=== PATIENT | male | born 1950 | race Caucasian/White ===

== ENCOUNTER 2017-10-09 12:30 | Inpatient (IN) | payer MEDICARE, MEDICAID ==
[2017-10-09] MEDS ORDERED: cefTRIAXone 1 GM in Sodium Chloride 0.9% 50 ML IV ONE (12:55)
--- NOTE | 2017-10-09 13:22 | ED Physician Chart ---
ED Chief Complaint/HPI - Patient Information Date Seen:: 10/09/17 Time Seen:: 12:50 Chief Complaint:: Right Toe pain History of Present Illness:: onset x 3 days of right foot/toe pain, redness, and swelling; hx of DM; pt denies trauma, H/As, neck pain, C/P, SOB, cough, Abd. Pain, A/N/V/D/C, fever, chills, or urinary s/s; pt's last tetanus shot: < 5 years; UTD Allergies:: Allergies Allergy/AdvReac Type Severity Reaction Status Date / Time aspirin Allergy Verified 10/09/17 13:13 Fish Containing Products Allergy Verified 10/09/17 13:13 Historian:: Patient, EMS Review:: Nurse's Note Reviewed, Old Chart Reviewed, EMS run form Reviewed ED Review of Systems - Review of Systems General/Constitutional: No fever, No chills, No weight loss, Weakness, No diaphoresis, No edema, No loss of appetite Skin: Skin lesions, Rash, No bruising Head: No headache, No light-headedness Eyes: No loss of vision, No pain, No diplopia ENT: No earache, No nasal drainage, No sore throat, No tinnitus Neck: No neck pain, No swelling, No thyromegaly, No stiffness, No mass noted Cardio Vascular: No chest pain, No palpitations, No PND, No orthopnea, No edema Pulmonary: No SOB, No cough, No sputum, No wheezing GI: No nausea, No vomiting, No diarrhea, No pain, No melena, No hematochezia, No constipation, No hematemesis G/U: No dysuria, No frequency, No hematuria, No nacturia Musculoskeletal: No bone or joint pain, No back pain, No muscle pain Endocrine: No polyuria, No polydipsia Psychiatric: Prior psych history, No depression, Anxiety, No suicidal ideation, No homicidal ideation, No auditory hallucination, No visual hallucination Hematopoietic: No bruising, No lymphadenopathy Allergic/Immuno: No urticaria, No angioedema Neurological: No syncope, No focal symptoms, Weakness, No paresthesia, No headache, No seizure, No dizziness, No confusion, No vertigo ED Past Medical History - Past Medical History Obtainable: Yes Past Medical History: HTN, DM, Dyslipidemia, PUD/GERD, Arthritis Family History: Diabetes Melitus, HTN Social History: Non Smoker, Alcohol, No Drug Use, Single, Care Facility Surgical History: None Psychiatricy History: Other (Anxiety Disorder) Medication: Reviewed ED Physical Exam - Physical Examination General/Constitutional: Awake, Well-developed, well-nourished, Alert, No distress, GCS 15, Non-toxic appearing, Ambulatory Head: Atraumatic Eyes: Lids, conjuctiva normal, PERRL, EOMI Skin: Nl inspection, No rash, No skin lesions, No ecchymosis, Well hydrated, No lymphadenopathy Other Skin comments:: Right Foot/Toe Cellulitis; good NV functions ENMT: External ears, nose nl, TM canals nl, Nasal exam nl, Lips, teeth, gums nl , Oropharynx nl, Tonsils nl Neck: Nontender, Full ROM w/o pain, No JVD, No nuchal rigidity, No bruit, No mass, No stridor Respiratory: Nl effort/Exclusion, Clear to Auscultation, No Wheeze/Rhonchi/Rales Cardio Vascular: RRR, No murmur, gallop, rubs, NL S1 S2, Carotid/Femoral/Distal pulses equal bilaterally GI: No tenderness/rebounding/guarding, No organomegaly, No hernia, Normal BS's, Nondistended, No mass/bruits, No McBurney tenderness : No CVA tenderness Extremities: No tenderness or effusion, Full ROM, normal strength in all extremities, No edema, Normal digits & nails Neuro/Psych: Alert/oriented, DTR's symmetric, Normal sensory exam, Normal motor strength, Judgement/insight normal, Mood normal, Normal gait, No focal deficits Misc: Normal back, No paraspinal tenderness ED Labs/Radiology/EKG Results - Lab Results Comments:: Na+: 121; K+: 3.3; H/H: + Anemia - Radiology Results Comments:: NAD - EKG Interpretations EKG Time:: 13:28 Rate & Rhythm: 75; NSR Comments:: non-specific st-t changes ED Septic Shock - . Is Septic Shock (SBP<90, OR Lactate>4 mmol\L) present?: No ED Reassessment (Disposition) - Reassessment Reassessment Condition:: Improved - Diagnosis Diagnosis:: Dx: Cellulitis; Cirrhosis; Hyponatremia;p Hypokalemia; Anemia - Aftercare/Follow up Instructions Aftercare/Follow-Up Instructions:: Counseled pt regarding lab results/diagnosis & need follow up, Counseled pt & family regarding lab results/diagnosis & need follow up - Patient Disposition Discharge/Transfer:: Acute Care w/in this hosp Accepting Physician:: Dr. Glover Time Called:: [id number] Time Responded:: 14:30 Admitted to:: Telemetry Spoke to:: Dr. Glover Admitting Medical Physician:: Dr. Glover Condition at Disposition:: Stable, Improved
[2017-10-09 13:25] LABS: % BASOPHILS 1.8 % (0.0-2.0); % EOSINOPHILS 8.4 % (0.0-5.0); % LYMPHOCYTES 15.1 % (20.0-50.0); % MONOCYTES 6.6 % (2.0-10.0); % NEUTROPHILS 68.1 % (40.0-80.0); BASOPHILE ABSOLUTE 0.1 Th/cumm (0-0.2); EOSINOPHILE ABSOLUTE 0.5 Th/cmm (0.1-0.4); HEMATOCRIT 32.6 % (41.0-60); HEMOGLOBIN 11.2 gm/dL (12-16); LYMPHOCYTE ABSOLUTE 0.8 Th/cmm (1.5-3.0); MEAN CELL VOLUME 94.7 fl (80-99); MEAN CORPUSCULAR HEMOGLOBIN 32.6 pg (27.0-31.0); MEAN CORPUSCULAR HGB CONC 34.4 pg (28.0-36.0); MEAN PLATELET VOLUME 8.2 fl; MONOCYTE ABSOLUTE 0.4 Th/cmm (0.3-1.0); NEUTROPHILE ABSOLUTE 3.6 Th/cmm (1.8-8.0); PLATELET COUNT 74 Th/cmm (150-400); RED BLOOD COUNT 3.44 Mil/cmm (3.80-5.80); RED CELL DISTRIBUTION WIDTH 13.7 % (11.5-20.0); WHITE BLOOD COUNT 5.4 Th/cmm (4.8-10.8)
[2017-10-09 13:34] LABS: INR 1.15 (0.5-1.4); PROTHROMBIN TIME (TEST) 12.1 SECONDS (9.5-11.5)
--- NOTE | 2017-10-09 13:40 | Diagnostic Imaging Report ---
Portable chest x-ray History: Pain Allowing for portable technique the heart size is normal. No focal pulmonary parenchymal processes. No hilar or mediastinal abnormalities. Impression: No acute abnormalities.
[2017-10-09 13:42] LABS: ALB/GLOB RATIO 1.1 (1.0-1.8); ALBUMIN 3.7 gm/dL (4.2-5.5); ALKALINE PHOSPHATASE 103 U/L (34-104); ANION GAP 11.2 (7.0-16.0); BILIRUBIN,TOTAL 1.1 mg/dL (0.3-1.0); BUN - UREA NITROGEN 19 mg/dL (7-25); CALCIUM SERUM 8.8 mg/dL (8.6-10.3); CARBON DIOXIDE 22.1 mEq/L (21.0-31.0); CHLORIDE 91 mEq/L (98-107); CREATININE KINASE 247 U/L (30-223); GFR AFRICAN-AMERICAN > 60.0 ml/min (>90); GFR NON AFRICAN-AMERICAN > 60.0 ml/min; GLUCOSE 154 mg/dL (70-105); POTASSIUM SERUM 3.3 mEq/L (3.5-5.1); SGOT 27 U/L (13-39); SGPT/ALT 15 U/L (7-52); SODIUM SERUM 121 mEq/L (136-145)
[2017-10-09] MEDS ORDERED: Potassium Chloride 20 mEq ER Tab PO ONE ×2 (14:30→14:43)
[2017-10-09 14:33] LABS: URINE MICROSCOPIC INDICATED? YES; URINE SOURCE MIDSTREAM
[2017-10-09 14:38] LABS: URINE BILIRUBIN NEGATIVE (NEGATIVE); URINE BLOOD NEGATIVE (NEGATIVE); URINE GLUCOSE (UA) NEGATIVE (NEGATIVE); URINE KETONE NEGATIVE (NEGATIVE); URINE LEUKOCYTE ESTERASE NEGATIVE (NEGATIVE); URINE NITRATE NEGATIVE (NEGATIVE); URINE PROTEIN NEGATIVE (NEGATIVE)
[2017-10-09 14:40] LABS: URINE CLARITY CLEAR (CLEAR); URINE COLOR YELLOW
[2017-10-09 14:41] LABS: URINE BACTERIA NONE SEEN /hpf (NONE SEEN); URINE EPITHELIAL CELLS NONE SEEN /lpf (FEW); URINE RBC NONE SEEN /hpf (0-5); URINE WBC NONE SEEN /hpf (0-5)
[2017-10-09] MEDS ORDERED: VTE Chemical Prophylaxis Screen/Admission MC PRN (16:00)
[2017-10-09] MEDS: INSULIN ASPART SLIDING SCALE 100 UNITS/ML UNIT SUBQ SCH ×2 (16:58→21:45)
[2017-10-09] MEDS ORDERED: [UNRECOGNIZED DRUG - OTHER] TP SCH (20:00)
[2017-10-09] MEDS ORDERED: NEOMYCIN TP SCH (20:00)
[2017-10-09] MEDS ORDERED: Sodium Chloride 0.9% 250 ML IV ONE (21:26)
[2017-10-09] MEDS: Sodium Chloride 0.9% 1,000 ML IV SCH (23:07)
[2017-10-10 05:53] LABS: HEMOGLOBIN 10.1 gm/dL (12-16)
[2017-10-10 05:59] LABS: HEMATOCRIT 29.4 % (41.0-60); MEAN CELL VOLUME 95.6 fl (80-99); MEAN CORPUSCULAR HEMOGLOBIN 32.9 pg (27.0-31.0); MEAN CORPUSCULAR HGB CONC 34.4 pg (28.0-36.0); PLATELET COUNT 58 Th/cmm (150-400); RED BLOOD COUNT 3.08 Mil/cmm (3.80-5.80); RED CELL DISTRIBUTION WIDTH 13.6 % (11.5-20.0)
[2017-10-10 06:14] LABS: ANION GAP 10.9 (7.0-16.0); BUN - UREA NITROGEN 14 mg/dL (7-25); CALCIUM SERUM 8.6 mg/dL (8.6-10.3); CARBON DIOXIDE 22.2 mEq/L (21.0-31.0); CHLORIDE 101 mEq/L (98-107); CHOLESTEROL 133 mg/dL (<200); CREATININE - SERUM 0.9 mg/dL (0.7-1.3); GFR AFRICAN-AMERICAN > 60.0 ml/min (>90); GFR NON AFRICAN-AMERICAN > 60.0 ml/min; GLUCOSE 103 mg/dL (70-105); HDL -HIGH DENSITY LIPOPROTEIN 45 mg/dL (23-92); POTASSIUM SERUM 4.1 mEq/L (3.5-5.1); SODIUM SERUM 130 mEq/L (136-145); TRIGLYCERIDES 66 mg/dL (<150)
[2017-10-10 06:18] LABS: MANUAL DIFF REQUIRED? YES; WHITE BLOOD COUNT 3.2 Th/cmm (4.8-10.8)
[2017-10-10 07:18] LABS: BAND NEUTROPHILE 2 % (0-10); EOSINOPHIL 13 % (0-5); LYMPHOCYTE 26 % (20-50); MONOCYTE 3 % (2-10); NEUTROPHILS 56 % (40-80); PLATELET ESTIMATE DECREASED PLATELETS (NORMAL); TOTAL CELLS COUNTED 100
[2017-10-10] MEDS: Pantoprazole 40 mg EC Tab PO SCH (08:45)
[2017-10-10] MEDS ORDERED: Probiotic Screen MC PRN (08:45)
[2017-10-10] MEDS: Multivitamin Tab PO SCH (08:45)
[2017-10-10] MEDS: INSULIN ASPART SLIDING SCALE 100 UNITS/ML UNIT SUBQ SCH ×4 (08:46→21:51)
[2017-10-10] MEDS: Lactobacillus Rhamnosus GG 15 Billion CFU CAP.SPRINK PO SCH (08:53)
[2017-10-10] MEDS: Hydrocodone/APAP 5mg/325mg Tab PO PRN (08:53)
[2017-10-10] MEDS: Triple Antibiotic Ointment 28gm tube TP SCH ×2 (09:35→21:36)
--- NOTE | 2017-10-10 11:16 | Consultation ---
DATE OF CONSULTATION: 10/10/2017 HEMATOLOGY ONCOLOGY CONSULTATION REASON FOR CONSULTATION: Leukopenia and thrombocytopenia. REFERRING PHYSICIAN: Dr. Glover. HISTORY OF PRESENT ILLNESS: The patient is a 66-year-old male with history of alcoholism and liver cirrhosis. He presented with right toe pain. He had history of right middle toe amputation and he was found to have infected toes, was started on IV antibiotics. His admission white count and platelet count were low and remained low. Therefore, I was asked to evaluate. MEDICAL HISTORY: Hypertension, diabetes, dyslipidemia, cirrhosis, peptic ulcer disease, reflux. SOCIAL HISTORY: No smoking. Former drinking. SURGICAL HISTORY: Amputation of the right middle toe. MEDICATIONS: Reviewed. PHYSICAL EXAMINATION: GENERAL: On exam, the patient is awake. VITAL SIGNS: Afebrile. HEENT: Atraumatic. NECK: Supple. CHEST: Clear. ABDOMEN: Soft. No ascites. EXTREMITIES: Right middle toe amputation, the right second toe erythematous and exquisitely tender. LAB WORK: White count 3.2, hemoglobin 10.1, platelets 58. PT and PTT normal. Liver functions normal. Creatinine 0.9. ASSESSMENT: Leukopenia, thrombocytopenia and anemia, most likely chronic liver cirrhosis and hypersplenism. I will obtain ultrasound. I was also obtained B12 and folate level and iron studies for comprehensive evaluation. No need for transfusion or growth factor support at this time. Thank you Dr. Glover for the opportunity to participate in the care of this interesting case for you. JOB# [id number]
[2017-10-10] MEDS ORDERED: Lactulose 10 Gm/15 mL 30mL UDC PO SCH (14:00)
--- NOTE | 2017-10-10 20:26 | Consultation ---
DATE OF CONSULTATION: 10/10/2017 REASON FOR CONSULTATION: Cirrhosis of the liver. HISTORY OF PRESENT ILLNESS: This consult was obtained through the courtesy of Dr. Glover for this 66-year-old with history of cirrhosis of the liver related to alcoholic liver disease, presented to the hospital with foot pain and possible toe infection or cellulitis. The patient has a history of gangrene to the foot before and had surgery. The patient denies any nausea, vomiting, diarrhea, constipation, hematemesis. He has occasional abdominal pain. PAST MEDICAL HISTORY: Cirrhosis of the liver, alcohol abuse. PAST SURGICAL HISTORY: Toe amputation. SOCIAL HISTORY: Ex-alcoholic, nonsmoker, non-IV drug abuser, quit alcohol about 8 months ago. FAMILY HISTORY: Noncontributory. ALLERGIES: ASPIRIN. MEDICATIONS: The patient is on Tylenol, Hygro[place], Colace, folic acid, insulin, lactulose, Culturelle, Lopressor, vancomycin, Theragran, bacitracin, Nitrostat, Protonix, Zosyn, Diovan, thiamine. REVIEW OF SYSTEMS: As per history of present illness. PHYSICAL EXAMINATION: GENERAL: The patient is awake, oriented to self, place, and time, in no acute distress. VITAL SIGNS: Blood pressure is 118/69, heart rate 83, respiratory rate 18, temperature 98.1. HEAD AND NECK: Pupils reactive to light. Extraocular muscles intact. Sclerae are anicteric. Conjunctivae not pale. Oral cavity, no lesion. NECK: Supple. CHEST: Good air entry. LUNGS: Clear to auscultation. CARDIOVASCULAR: Regular rate and rhythm. No murmur or gallop. ABDOMEN: Soft, positive bowel sounds. Abdomen was not tender. EXTREMITIES: Lower extremities, no edema right side. Right foot, there was amputated middle foot. There are some sores over the second foot. CENTRAL NERVOUS SYSTEM: Grossly nonfocal. LABORATORY DATA: PT is 12.1 seconds, platelets are 58, H and H are 10.1 and 29.4 with a white count of 3.2, bilirubin was 1.1. Rest of liver enzymes are normal. Ammonia level is high and albumin is low at 3.7. IMPRESSION: A 66-year-old presenting with toe pain, but he also has cirrhosis. ASSESSMENT AND PLAN: 1. Cirrhosis of the liver. This is due to alcoholic liver disease. The patient claims he has no hepatitis C. This can be followed as an outpatient. We can check it and monitor him. Meanwhile, continue his vitamin supplement. 2. Thrombocytopenia. This is related to cirrhosis of the liver, possible ____. 3. Leukopenia, related to cirrhosis of the liver. 4. Elevated ammonia level could be hepatic encephalopathy. We will start the patient on lactulose and then further recommendations to follow. Also related to cirrhosis of liver. We will check ultrasound for further evaluation. We will check alpha fetoprotein and then further recommendations would follow as needed. Thank you, Dr. Glover for allowing me to participate in the care of the patient. If you have any further questions, please let me know. JOB# [id number]
[2017-10-10] MEDS: Lactulose 10 Gm/15 mL 30mL UDC PO SCH (21:47)
--- NOTE | 2017-10-10 23:31 | Consultation ---
Consult Note - Consult Note Service Date: 10/10/17 Referring Physician: Arabella Glover Consult Note: PHYSICIAN Consultation Note: Date of Admission: 10/09/17 Purpose of Consultation: Right foot 2nd toe wound. Chief Complaint: Patient CHRISTINE STANFORD was admitted to [facility] Telemetry with CELLULITIS, ELECTROLYTE IMBALANCE. History of Present Illness:66 Year-old male with history of DM2 presented with ulcer in the right 2nd toe wound. It was associated with swelling and redness. On initial evaluation, his temperature was 97.8 degree F and WBC count was 5, 400. vancomycin and zosyn were started and ID consult was called for antibiotic management. Past Medical History: DM2, liver cirrhosis. leukopenia and thrombocytopenia. Allergies Allergy/AdvReac Type Severity Reaction Status Date / Time aspirin Allergy Verified 10/09/17 13:13 Fish Containing Products Allergy Verified 10/09/17 13:13 Vital Signs Temp 97.3 F 10/10/17 20:00 Pulse 96 10/10/17 21:38 Resp 20 10/10/17 20:00 BP 124/78 10/10/17 21:38 Pulse Ox 99 10/10/17 16:00 Intake & Output 10/10/17 10/10/17 10/11/17 06:59 18:59 06:59 Intake Total 650 1100 Balance 650 1100 Weight (lbs) 87.543 kg 87.543 kg Intake: Intake, IV Amount 650 300 Piperacillin Sodium/ 150 50 Tazobact 3.375 gm In Sodium Chloride 0.9% 50 ml @ 100 mls/hr IV Q6HR [facility] Rx#:[id number] Sodium Chloride 0.9% 250 250 ml @ Wide Open IV .Q0M ONE Rx#:[id number] Vancomycin HCl 750 mg In 250 250 Sodium Chloride 0.9% 250 ml @ 250 mls/hr IV Q12H [facility] Rx#:[id number] Oral 800 Other: # Voids 3 3 # Bowel Movements 0 Stool Characteristics Soft Weight Source Bedscale Bedscale Laboratory Results - last 24 hr 10/10/17 10/10/17 10/10/17 05:41 05:41 05:41 WBC 3.2 L D RBC 3.08 L Hgb 10.1 L Hct 29.4 L MCV 95.6 MCH 32.9 H MCHC Differential 34.4 RDW 13.6 Plt Count 58 L MPV 8.0 Band Neutrophils % 2 Neutrophils (Manual) 56 Lymphocytes 26 Monocytes 3 Eosinophils 13 H Platelet Estimate DECREASED PLATELETS Sodium 130 L Potassium 4.1 Chloride 101 Carbon Dioxide 22.2 Anion Gap 10.9 BUN 14 Creatinine 0.9 Est GFR ( Amer) > 60.0 Est GFR (Non-Af Amer) > 60.0 BUN/Creatinine Ratio 15.6 Glucose 103 POC Glucose Calcium 8.6 Ammonia 93 H Triglycerides 66 Cholesterol 133 LDL Cholesterol Direct 78 HDL Cholesterol 45 10/10/17 10/10/17 10/10/17 06:02 11:44 16:19 WBC RBC Hgb Hct MCV MCH MCHC Differential RDW Plt Count MPV Band Neutrophils % Neutrophils (Manual) Lymphocytes Monocytes Eosinophils Platelet Estimate Sodium Potassium Chloride Carbon Dioxide Anion Gap BUN Creatinine Est GFR ( Amer) Est GFR (Non-Af Amer) BUN/Creatinine Ratio Glucose POC Glucose 100 128 H 112 H Calcium Ammonia Triglycerides Cholesterol LDL Cholesterol Direct HDL Cholesterol 10/10/17 21:49 WBC RBC Hgb Hct MCV MCH MCHC Differential RDW Plt Count MPV Band Neutrophils % Neutrophils (Manual) Lymphocytes Monocytes Eosinophils Platelet Estimate Sodium Potassium Chloride Carbon Dioxide Anion Gap BUN Creatinine Est GFR ( Amer) Est GFR (Non-Af Amer) BUN/Creatinine Ratio Glucose POC Glucose 114 H Calcium Ammonia Triglycerides Cholesterol LDL Cholesterol Direct HDL Cholesterol Home Medication Medication Instructions Recorded Type Acetaminophen [Tylenol] 650 mg PO Q4HR PRN 10/09/17 History Chlorthalidone 25 mg PO TID 10/09/17 History Docusate Sodium [Colace] 100 mg PO DAILY 10/09/17 History Folic Acid [Folate*] 1 mg PO DAILY 10/09/17 History Hydrocodone/APAP 5mg/325mg [Hoagland 1 tab PO Q8H PRN 10/09/17 History 5mg/325mg] Metoprolol Tartrate 25 mg PO BID 10/09/17 History Multivitamin [Multivitamins] 1 sgl PO DAILY 10/09/17 History Neomycin/Bacitracin/Polymyxinb 1 appl TP QSHIFT 10/09/17 History [Triple Antibiotic Ointment] Nitroglycerin 0.4 mg SL Q5MIN PRN 10/09/17 History Pantoprazole Sodium 40 mg PO DAILY 10/09/17 History Thiamine [Vitamin B1] 100 mg PO DAILY 10/09/17 History Valsartan 80 mg PO BID 10/09/17 History Current Medications Generic Name Dose Route Start Last Admin Trade Name Freq PRN Reason Stop Dose Admin Acetaminophen 650 mg 10/09/17 19:01 Tylenol PO 12/08/17 19:00 Q4HR PRN MILD PAIN OR TEMP >101 Acetaminophen/Hydrocodone Bitart 1 tab 10/09/17 19:01 10/10/17 08:53 Hoagland 5mg/325mg PO 12/08/17 19:00 1 tab Q8H PRN Administration Severe Pain Chlorthalidone 25 mg 10/09/17 21:00 10/10/17 21:38 Hygroton PO 12/08/17 20:59 25 mg TID ORLY Administration Docusate Sodium 100 mg 10/10/17 09:00 10/10/17 08:45 Colace PO 12/09/17 08:59 100 mg DAILY ORLY Administration Folic Acid 1 mg 10/10/17 09:00 10/10/17 08:45 Folate PO 12/09/17 08:59 1 mg DAILY ORLY Administration Piperacillin Sod/Tazobactam 50 mls @ 100 mls/hr 10/09/17 18:00 10/10/17 17:52 Sod 3.375 gm/ Sodium Chloride IV 12/08/17 17:59 100 mls/hr Q6HR ORLY Administration Vancomycin HCl 750 mg/ Sodium 250 mls @ 250 mls/hr 10/09/17 17:00 10/10/17 17 :22 Chloride IV 12/08/17 16:59 Infused Q12H ORLY Infusion Sodium Chloride 1,000 mls @ 50 mls/hr 10/09/17 21:30 10/09/17 23:07 Nacl 0.9% IV 12/08/17 21:29 50 mls/hr .Q20H ORLY Administration Insulin Aspart 0 units 10/09/17 16:30 10/10/17 21:51 Novolog Insulin Sliding Scale SUBQ 12/08/17 16:29 Not Given ACHS ORLY Protocol Lactobacillus Rhamnosus 1 each 10/10/17 09:00 10/10/17 08:53 Culturelle 15b PO 12/09/17 08:59 1 each DAILY ORLY Administration Lactulose 30 gm 10/10/17 21:00 10/10/17 21:47 Cephulac PO 12/09/17 20:59 30 gm TID ORLY Administration Metoprolol Tartrate 25 mg 10/10/17 09:00 10/10/17 16:24 Lopressor PO 12/09/17 08:59 Not Given BID ORLY Miscellaneous 1 ea 10/09/17 16:00 Vte Chemical Prophylaxis Screen/ Admission 12/08/17 15:59 PRN PRN PROTOCOL Miscellaneous 1 10/09/17 16:11 Vancomycin Iv Per Pharmacy 12/08/17 16:10 PRN PRN PROTOCOL Miscellaneous 1 10/10/17 08:45 Probiotic Screen 12/09/17 08:44 PRN PRN PROTOCOL Multivitamins/Vitamin C 1 tab 10/10/17 09:00 10/10/17 08:45 Theragran PO 12/09/17 08:59 1 tab DAILY ORLY Administration Neomycin/Polymyxin/Bacitracin 1 appl 10/10/17 08:00 10/10/17 21:36 Triple Antibiotic Ointment TP 12/09/17 07:59 1 appl QSHIFT ORLY Administration Nitroglycerin 0.4 mg 10/09/17 19:01 Nitrostat SL 12/08/17 19:00 Q5MIN PRN Chest Pain Pantoprazole Sodium 40 mg 10/10/17 09:00 10/10/17 08:45 Protonix PO 12/09/17 08:59 40 mg DAILY ORLY Administration Thiamine HCl 100 mg 10/10/17 09:00 10/10/17 08:45 Vitamin B1 PO 12/09/17 08:59 100 mg DAILY ORLY Administration Valsartan 80 mg 10/10/17 09:00 10/10/17 16:24 Diovan PO 12/09/17 08:59 Not Given BID ORLY Review of Systems: A 12 point ROS was reviewed with the pertinent positive and negatives noted in the HPI. Social History Smoking Status Never smoker Drug Use No Alcohol Use Yes Family Medical History Family Medical History Start: 10/09/17 14: 57 Freq: ONCE Status: Active Document 10/09/17 15:42 JESSIE (Rec: 10/09/17 15:42 JESSIE [id number]) Family Medical History Mother History Unknown Yes Physical Exam: General: WN WD. HEENT: Head: normocephalic, atraumatic. Oral cavity: moist, pink tongue. Eyes: no pallor, no icterus, Pupil PERRLA. Neck: Supple, no NVD, no carotid bruit. Cardio: S1 and S2 WNL. No murmur, Respiratory: Vesicular breath sounds. Abdominal: soft NT ND BS + Genital/Urinary: Extremities: 2nd toe of the left 2nd toe ulcer with minimal redness. Neurological: AAox3 Assessment: 1, Right 2nd toe ulcers and cellulitis, 2, Neutropenia 3. Thrombocytopenia. 4, Cirrhosis of liver, 5. DM2. Plan: CPM . continue vanco IV and dc Zosyn. wound care. Signed, Quoc Hernandez M.D. [id number]
[2017-10-11] MEDS: Sodium Chloride 0.9% 1,000 ML IV SCH (03:42)
[2017-10-11] MEDS: INSULIN ASPART SLIDING SCALE 100 UNITS/ML UNIT SUBQ SCH ×4 (07:11→20:52)
--- NOTE | 2017-10-11 07:52 | Diagnostic Imaging Report ---
Ultrasound abdomen HISTORY: Splenomegaly COMPARISON: None Technique: Sonography of the abdomen was performed in multiple planes. FINDINGS: The exam is limited due to body habitus and bowel gas. The liver demonstrates normal echogenicity. There is poor visualization of the liver margins limiting assessment for focal lesions. No obvious focal lesions identified. The liver measures 16.7 cm. There is suboptimal evaluation of the gallbladder. No obvious gallstones identified. The gallbladder is suboptimally distended. The gallbladder wall measures 3 mm. No pericholecystic fluid. The common bile duct and pancreas were not well-visualized. The right kidney measures 11.8 x 6.9 cm. No evidence of focal lesions or hydronephrosis. The left kidney measures 13.4 x 6.1 cm No evidence of focal lesions or hydronephrosis. The spleen measures 19 x 6.3 cm. IMPRESSION: Splenomegaly with spleen measuring 19 x 6.3 cm. Please correlate with clinical findings. Liver at the upper limits of normal in size. Suboptimal distended gallbladder limiting its evaluation. No obvious gallstones identified. Borderline prominent gallbladder wall is noted, nonspecific and may be due to suboptimal distention.
[2017-10-11] MEDS: Lactulose 10 Gm/15 mL 30mL UDC PO SCH ×3 (09:28→20:50)
[2017-10-11] MEDS: Lactobacillus Rhamnosus GG 15 Billion CFU CAP.SPRINK PO SCH (09:28)
[2017-10-11] MEDS: Multivitamin Tab PO SCH (09:28)
[2017-10-11] MEDS: Pantoprazole 40 mg EC Tab PO SCH (09:28)
[2017-10-11] MEDS: Hydrocodone/APAP 5mg/325mg Tab PO PRN ×2 (09:39→17:52)
[2017-10-11] MEDS: Triple Antibiotic Ointment 28gm tube TP SCH ×2 (09:40→20:50)
--- NOTE | 2017-10-11 10:19 | General Progress Note ---
Subjective - Review of Systems Service Date: 10/11/17 Objective - Results Result Diagrams: 10/10/17 05:41 10/10/17 05:41 Recent Labs: Laboratory Last Values WBC 3.2 Th/cmm (4.8-10.8) L D 10/10/17 05:41 RBC 3.08 Mil/cmm (3.80-5.80) L 10/10/17 05:41 Hgb 10.1 gm/dL (12-16) L 10/10/17 05:41 Hct 29.4 % (41.0-60) L 10/10/17 05:41 MCV 95.6 fl (80-99) 10/10/17 05:41 MCH 32.9 pg (27.0-31.0) H 10/10/17 05:41 MCHC Differential 34.4 pg (28.0-36.0) 10/10/17 05:41 RDW 13.6 % (11.5-20.0) 10/10/17 05:41 Plt Count 58 Th/cmm (150-400) L 10/10/17 05:41 MPV 8.0 fl 10/10/17 05:41 Neutrophils % 68.1 % (40.0-80.0) 10/09/17 13:10 Band Neutrophils % 2 % (0-10) 10/10/17 05:41 Lymphocytes % 15.1 % (20.0-50.0) L 10/09/17 13:10 Monocytes % 6.6 % (2.0-10.0) 10/09/17 13:10 Eosinophils % 8.4 % (0.0-5.0) H 10/09/17 13:10 Basophils % 1.8 % (0.0-2.0) 10/09/17 13:10 Neutrophils (Manual) 56 % (40-80) 10/10/17 05:41 Lymphocytes 26 % (20-50) 10/10/17 05:41 Monocytes 3 % (2-10) 10/10/17 05:41 Eosinophils 13 % (0-5) H 10/10/17 05:41 Platelet Estimate DECREASED PLATELETS (NORMAL) 10/10/17 05:41 PT 12.1 SECONDS (9.5-11.5) H 10/09/17 13:10 INR 1.15 (0.5-1.4) 10/09/17 13:10 PTT (Actin FS) 26.2 SECONDS (26.0-38.0) 10/09/17 13:10 Sodium 130 mEq/L (136-145) L 10/10/17 05:41 Potassium 4.1 mEq/L (3.5-5.1) 10/10/17 05:41 Chloride 101 mEq/L (98-107) 10/10/17 05:41 Carbon Dioxide 22.2 mEq/L (21.0-31.0) 10/10/17 05:41 Anion Gap 10.9 (7.0-16.0) 10/10/17 05:41 BUN 14 mg/dL (7-25) 10/10/17 05:41 Creatinine 0.9 mg/dL (0.7-1.3) 10/10/17 05:41 Est GFR ( Amer) > 60.0 ml/min (>90) 10/10/17 05:41 Est GFR (Non-Af Amer) > 60.0 ml/min 10/10/17 05:41 BUN/Creatinine Ratio 15.6 10/10/17 05:41 Glucose 103 mg/dL (70-105) 10/10/17 05:41 POC Glucose 114 MG/DL (70 - 105) H 10/10/17 21:49 Whole Bld Lactic Acid 1.17 mmol/L (0.60-1.99) 10/09/17 13:10 Calcium 8.6 mg/dL (8.6-10.3) 10/10/17 05:41 Total Bilirubin 1.1 mg/dL (0.3-1.0) H 10/09/17 13:10 AST 27 U/L (13-39) 10/09/17 13:10 ALT 15 U/L (7-52) 10/09/17 13:10 Alkaline Phosphatase 103 U/L (34-104) 10/09/17 13:10 Ammonia 93 umol/L (16-53) H 10/10/17 05:41 Creatine Kinase 247 U/L (30-223) H 10/09/17 13:10 CK-MB (CK-2) 2.4 ng/mL (0.6-6.3) 10/09/17 13:10 Troponin I < 0.01 ng/mL (0.01-0.05) L 10/09/17 13:10 Total Protein 7.0 gm/dL (6.0-8.3) 10/09/17 13:10 Albumin 3.7 gm/dL (4.2-5.5) L 10/09/17 13:10 Globulin 3.3 gm/dL 10/09/17 13:10 Albumin/Globulin Ratio 1.1 (1.0-1.8) 10/09/17 13:10 Triglycerides 66 mg/dL (<150) 10/10/17 05:41 Cholesterol 133 mg/dL (<200) 10/10/17 05:41 LDL Cholesterol Direct 78 mg/dL (75-193) 10/10/17 05:41 HDL Cholesterol 45 mg/dL (23-92) 10/10/17 05:41 Urine Source MIDSTREAM 10/09/17 13:40 Urine Color YELLOW 10/09/17 13:40 Urine Clarity CLEAR (CLEAR) 10/09/17 13:40 Urine pH 6.0 (4.6 - 8.0) 10/09/17 13:40 Ur Specific [place] <= 1.005 (1.005-1.030) 10/09/17 13:40 Urine Protein NEGATIVE mg/dL (NEGATIVE) 10/09/17 13:40 Urine Glucose (UA) NEGATIVE mg/dL (NEGATIVE) 10/09/17 13:40 Urine Ketones NEGATIVE mg/dL (NEGATIVE) 10/09/17 13:40 Urine Blood NEGATIVE (NEGATIVE) 10/09/17 13:40 Urine Nitrate NEGATIVE (NEGATIVE) 10/09/17 13:40 Urine Bilirubin NEGATIVE (NEGATIVE) 10/09/17 13:40 Urine Urobilinogen 1.0 E.U./dL (0.2 - 1.0) 10/09/17 13:40 Ur Leukocyte Esterase NEGATIVE (NEGATIVE) 10/09/17 13:40 Urine RBC NONE SEEN /hpf (0-5) 10/09/17 13:40 Urine WBC NONE SEEN /hpf (0-5) 10/09/17 13:40 Ur Epithelial Cells NONE SEEN /lpf (FEW) 10/09/17 13:40 Urine Bacteria NONE SEEN /hpf (NONE SEEN) 10/09/17 13:40 Vancomycin Trough 6.0 ug/mL (5-10) 10/11/17 04:10 - Physical Exam Vitals and I&O: Vital Signs Temp 97.4 F 10/11/17 08:00 Pulse 88 10/11/17 09:30 Resp 20 10/11/17 08:00 BP 110/61 10/11/17 09:30 Pulse Ox 98 10/11/17 08:00 Intake & Output 10/10/17 10/11/17 10/11/17 18:59 06:59 18:59 Intake Total 1150 1600 Balance 1150 1600 Weight (lbs) 87.543 kg 85.91 kg Intake: Intake, IV Amount 350 1000 Piperacillin Sodium/ 100 Tazobact 3.375 gm In Sodium Chloride 0.9% 50 ml @ 100 mls/hr IV Q6HR [facility], [facility] Rx#:[id number] Sodium Chloride 0.9% 1, 1000 000 ml @ 50 mls/hr IV . Q20H [facility], [facility] Rx#:[id number] Vancomycin HCl 750 mg In 250 Sodium Chloride 0.9% 250 ml @ 250 mls/hr IV Q12H [facility], [facility] Rx#:[id number] Oral 800 300 Other 300 Other: # Voids 3 3 # Bowel Movements 0 1 Weight Source Bedscale Bedscale Active Medications: Current Medications Acetaminophen (Tylenol) 650 mg PO Q4HR PRN PRN Reason: MILD PAIN OR TEMP >101 Stop: 12/08/17 19:00 Acetaminophen/Hydrocodone Bitart ([place] 5mg/325mg) 1 tab PO Q8H PRN PRN Reason: Severe Pain Stop: 12/08/17 19:00 Last Admin: 10/11/17 09:39 Dose: 1 tab Chlorthalidone (Hygroton) 25 mg PO TID [facility] Stop: 12/08/17 20:59 Last Admin: 10/11/17 09:30 Dose: 25 mg Docusate Sodium (Colace) 100 mg PO DAILY [facility] Stop: 12/09/17 08:59 Last Admin: 10/11/17 09:28 Dose: 100 mg Folic Acid (Folate) 1 mg PO DAILY [facility] Stop: 12/09/17 08:59 Last Admin: 10/11/17 09:28 Dose: 1 mg Vancomycin HCl 750 mg/ Sodium (Chloride) 250 mls @ 250 mls/hr IV Q12H [facility] Stop: 12/08/17 16:59 Last Admin: 10/11/17 04:42 Dose: 250 mls/hr Sodium Chloride (Nacl 0.9%) 1,000 mls @ 50 mls/hr IV .Q20H ORLY Stop: 12/08/17 21:29 Last Admin: 10/11/17 03:42 Dose: 50 mls/hr Insulin Aspart (Novolog Insulin Sliding Scale) 0 units SUBQ ACHS ORLY PRN Reason: Protocol Stop: 12/08/17 16:29 Last Admin: 10/11/17 07:11 Dose: Not Given Lactobacillus Rhamnosus (Culturelle 15b) 1 each PO DAILY ORLY Stop: 12/09/17 08:59 Last Admin: 10/11/17 09:28 Dose: 1 each Lactulose (Cephulac) 30 gm PO TID ORLY Stop: 12/09/17 20:59 Last Admin: 10/11/17 09:28 Dose: 30 gm Metoprolol Tartrate (Lopressor) 25 mg PO BID ORLY Stop: 12/09/17 08:59 Last Admin: 10/11/17 09:30 Dose: 25 mg Miscellaneous (Vte Chemical Prophylaxis Screen/ Admission) 1 ea MC PRN PRN PRN Reason: PROTOCOL Stop: 12/08/17 15:59 Miscellaneous (Vancomycin Iv Per Pharmacy) 1 ea MC PRN PRN PRN Reason: PROTOCOL Stop: 12/08/17 16:10 Miscellaneous (Probiotic Screen) 1 ea MC PRN PRN PRN Reason: PROTOCOL Stop: 12/09/17 08:44 Multivitamins/Vitamin C (Theragran) 1 tab PO DAILY ORLY Stop: 12/09/17 08:59 Last Admin: 10/11/17 09:28 Dose: 1 tab Neomycin/Polymyxin/Bacitracin (Triple Antibiotic Ointment) 1 appl TP QSHIFT [facility] Stop: 12/09/17 07:59 Last Admin: 10/11/17 09:40 Dose: 1 appl Nitroglycerin (Nitrostat) 0.4 mg SL Q5MIN PRN PRN Reason: Chest Pain Stop: 12/08/17 19:00 Pantoprazole Sodium (Protonix) 40 mg PO DAILY ORLY Stop: 12/09/17 08:59 Last Admin: 10/11/17 09:28 Dose: 40 mg Thiamine HCl (Vitamin B1) 100 mg PO DAILY ORLY Stop: 12/09/17 08:59 Last Admin: 10/11/17 09:28 Dose: 100 mg Valsartan (Diovan) 80 mg PO BID [facility] Stop: 12/09/17 08:59 Last Admin: 10/11/17 09:30 Dose: 80 mg General: Alert HEENT: Atraumatic Neck: Supple Cardiovascular: Regular rate Abdomen: Soft, Splenomegaly Extremities: Other (right middle toe amputated, right second toe erythematous) Assessment/Plan - Problem List Patient Problems: All Active Problems RIGHT #2 TOE WOUND (Acute) - Assessment Assessment: * Splenomegaly * Hypersplenesim * Right second toe infection Monitor cbc; No intervention needed for cytopenia Nutritional Asmnt/Malnutr-PDOC - Dietary Evaluation Malnutrition Findings (Please click <Entered> for more info): Nutritional Asmnt/Malnutrition Start: 10/10/17 15: 41 Text: Status: Complete Freq: Document 10/10/17 15:41 OCHOA (Rec: 10/10/17 15:49 OCHOA [email or web address]) Nutritional Asmnt/Malnutrition Patient General Information Nutritional Screening High Risk Consult Diagnosis cellulitis, electrolyte imbalance Pertinent Medical Hx/Surgical Hx HTN, DM, hyslipidemia, PUD/ GERD, arthritis, anxiety disorder, right middle toe amputation Subjective Information Consult received for wound to right second toe. Pt seen sleeping at time of visit, 1:1 sitter. Per SYSTEMS ADMINISTRATION ANALYST, Pt ate well, 100% of dinner last night and 100% of breakfast this morning, NPO in the afternoon. Pt reported fish allergy. Current Diet Order/ Nutrition Support low sodium Pertinent Medications colace, folate, novolog, culturelle, lactulose, theragran, protonix, piperacillin, nacl 0.9%, vit B1, vancomycin Pertinent Labs 10/10 na 130, glucose 103, POC 100-128 Nutritional Hx/Data Height 1.78 m Height (Calculated Centimeters) 177.8 Current Weight (lbs) 87.543 kg Weight (Calculated Kilograms) 87.5 Weight (Calculated Grams) 80039.3 [place] Body Weight 166 Body Mass Index (BMI) 27.6 Weight Status Overweight GI Symptoms GI Symptoms None Last BM no records Difficult in: None Food Allergies Yes: fish Skin Integrity/Comment: amputation pressure ulcer to right 2nd toe Current %PO Good (75-100%) Estimated Nutritional Goals BEE in Kcals: Adj wt of IBW Calories/Kcals/Kg 25-30. Kcals Calculated 2607-6638 Protein: Adj wt of IBW Protein g/k-1.2 Protein Calculated 78-94 Fluid: ml 1974-237ml (1ml/kcal) Nutritional Problem 1. Problem Problem increased nutrition needs ( calorie and protein) Etiology increased metabolic demand for wound healing Signs/Symptoms: pressure ulcer to right 2nd toe Malnutrition Alert Protein-Calorie Malnutrition N/A Is there a minimum of two criteria No selected? Query Text:Check all the applicable criteria. A minimum of two criteria are recommended for diagnosis of either severe or non-severe malnutrition. Intervention/Recommendation Comments 1. Continue with current diet as ordered. Consider adding oral nutrition supplement Arginaid 1pkg daily to help with wound healing. 2. Monitor PO intake, wt, labs and skin integrity 3. F/U as moderate risk in 3-5 days, 10/13-10/15. Expected Outcomes/Goals Expected Outcomes/Goals 1. PO intake to meet at least 75% of nutritional needs. 2. Wt stability, skin to remain intact, labs to approach WNL.
--- NOTE | 2017-10-11 14:38 | Internal Medicine Prog Note ---
Internal Medicine Subjective - Subjective Service Date: 10/11/17 ([id number] [facility] ) Internal Medicine Objective - Results Result Diagrams: 10/10/17 05:41 10/10/17 05:41 Recent Labs: Laboratory Last Values WBC 3.2 Th/cmm (4.8-10.8) L D 10/10/17 05:41 RBC 3.08 Mil/cmm (3.80-5.80) L 10/10/17 05:41 Hgb 10.1 gm/dL (12-16) L 10/10/17 05:41 Hct 29.4 % (41.0-60) L 10/10/17 05:41 MCV 95.6 fl (80-99) 10/10/17 05:41 MCH 32.9 pg (27.0-31.0) H 10/10/17 05:41 MCHC Differential 34.4 pg (28.0-36.0) 10/10/17 05:41 RDW 13.6 % (11.5-20.0) 10/10/17 05:41 Plt Count 58 Th/cmm (150-400) L 10/10/17 05:41 MPV 8.0 fl 10/10/17 05:41 Neutrophils % 68.1 % (40.0-80.0) 10/09/17 13:10 Band Neutrophils % 2 % (0-10) 10/10/17 05:41 Lymphocytes % 15.1 % (20.0-50.0) L 10/09/17 13:10 Monocytes % 6.6 % (2.0-10.0) 10/09/17 13:10 Eosinophils % 8.4 % (0.0-5.0) H 10/09/17 13:10 Basophils % 1.8 % (0.0-2.0) 10/09/17 13:10 Neutrophils (Manual) 56 % (40-80) 10/10/17 05:41 Lymphocytes 26 % (20-50) 10/10/17 05:41 Monocytes 3 % (2-10) 10/10/17 05:41 Eosinophils 13 % (0-5) H 10/10/17 05:41 Platelet Estimate DECREASED PLATELETS (NORMAL) 10/10/17 05:41 PT 12.1 SECONDS (9.5-11.5) H 10/09/17 13:10 INR 1.15 (0.5-1.4) 10/09/17 13:10 PTT (Actin FS) 26.2 SECONDS (26.0-38.0) 10/09/17 13:10 Sodium 130 mEq/L (136-145) L 10/10/17 05:41 Potassium 4.1 mEq/L (3.5-5.1) 10/10/17 05:41 Chloride 101 mEq/L (98-107) 10/10/17 05:41 Carbon Dioxide 22.2 mEq/L (21.0-31.0) 10/10/17 05:41 Anion Gap 10.9 (7.0-16.0) 10/10/17 05:41 BUN 14 mg/dL (7-25) 10/10/17 05:41 Creatinine 0.9 mg/dL (0.7-1.3) 10/10/17 05:41 Est GFR ( Amer) > 60.0 ml/min (>90) 10/10/17 05:41 Est GFR (Non-Af Amer) > 60.0 ml/min 10/10/17 05:41 BUN/Creatinine Ratio 15.6 10/10/17 05:41 Glucose 103 mg/dL (70-105) 10/10/17 05:41 POC Glucose 166 MG/DL (70 - 105) H 10/11/17 12:08 Whole Bld Lactic Acid 1.17 mmol/L (0.60-1.99) 10/09/17 13:10 Calcium 8.6 mg/dL (8.6-10.3) 10/10/17 05:41 Total Bilirubin 1.1 mg/dL (0.3-1.0) H 10/09/17 13:10 AST 27 U/L (13-39) 10/09/17 13:10 ALT 15 U/L (7-52) 10/09/17 13:10 Alkaline Phosphatase 103 U/L (34-104) 10/09/17 13:10 Ammonia 93 umol/L (16-53) H 10/10/17 05:41 Creatine Kinase 247 U/L (30-223) H 10/09/17 13:10 CK-MB (CK-2) 2.4 ng/mL (0.6-6.3) 10/09/17 13:10 Troponin I < 0.01 ng/mL (0.01-0.05) L 10/09/17 13:10 Total Protein 7.0 gm/dL (6.0-8.3) 10/09/17 13:10 Albumin 3.7 gm/dL (4.2-5.5) L 10/09/17 13:10 Globulin 3.3 gm/dL 10/09/17 13:10 Albumin/Globulin Ratio 1.1 (1.0-1.8) 10/09/17 13:10 Triglycerides 66 mg/dL (<150) 10/10/17 05:41 Cholesterol 133 mg/dL (<200) 10/10/17 05:41 LDL Cholesterol Direct 78 mg/dL (75-193) 10/10/17 05:41 HDL Cholesterol 45 mg/dL (23-92) 10/10/17 05:41 Urine Source MIDSTREAM 10/09/17 13:40 Urine Color YELLOW 10/09/17 13:40 Urine Clarity CLEAR (CLEAR) 10/09/17 13:40 Urine pH 6.0 (4.6 - 8.0) 10/09/17 13:40 Ur Specific [place] <= 1.005 (1.005-1.030) 10/09/17 13:40 Urine Protein NEGATIVE mg/dL (NEGATIVE) 10/09/17 13:40 Urine Glucose (UA) NEGATIVE mg/dL (NEGATIVE) 10/09/17 13:40 Urine Ketones NEGATIVE mg/dL (NEGATIVE) 10/09/17 13:40 Urine Blood NEGATIVE (NEGATIVE) 10/09/17 13:40 Urine Nitrate NEGATIVE (NEGATIVE) 10/09/17 13:40 Urine Bilirubin NEGATIVE (NEGATIVE) 10/09/17 13:40 Urine Urobilinogen 1.0 E.U./dL (0.2 - 1.0) 10/09/17 13:40 Ur Leukocyte Esterase NEGATIVE (NEGATIVE) 10/09/17 13:40 Urine RBC NONE SEEN /hpf (0-5) 10/09/17 13:40 Urine WBC NONE SEEN /hpf (0-5) 10/09/17 13:40 Ur Epithelial Cells NONE SEEN /lpf (FEW) 10/09/17 13:40 Urine Bacteria NONE SEEN /hpf (NONE SEEN) 10/09/17 13:40 Vancomycin Trough 6.0 ug/mL (5-10) 10/11/17 04:10 - Physical Exam Vitals and I&O: Vital Signs Temp 97.4 F 10/11/17 08:00 Pulse 80 10/11/17 13:56 Resp 18 10/11/17 12:33 BP 120/70 10/11/17 13:56 Pulse Ox 98 10/11/17 08:00 Intake & Output 10/10/17 10/11/17 10/11/17 18:59 06:59 18:59 Intake Total 1150 1600 720 Balance 1150 1600 720 Weight (lbs) 193 lb 189 lb 6.4 oz 189 lb 6.4 oz Intake: Intake, IV Amount 350 1000 Piperacillin Sodium/ 100 Tazobact 3.375 gm In Sodium Chloride 0.9% 50 ml @ 100 mls/hr IV Q6HR [facility] Rx#:[id number] Sodium Chloride 0.9% 1, 1000 000 ml @ 50 mls/hr IV . Q20H [facility] Rx#:[id number] Vancomycin HCl 750 mg In 250 Sodium Chloride 0.9% 250 ml @ 250 mls/hr IV Q12H [facility] Rx#:[id number] Oral 800 300 720 Other 300 Other: # Voids 3 3 # Bowel Movements 0 1 2 Stool Characteristics Soft Weight Source Bedscale Bedscale Bedscale Active Medications: Current Medications Acetaminophen (Tylenol) 650 mg PO Q4HR PRN PRN Reason: MILD PAIN OR TEMP >101 Stop: 12/08/17 19:00 Acetaminophen/Hydrocodone Bitart ([place] 5mg/325mg) 1 tab PO Q8H PRN PRN Reason: Severe Pain Stop: 12/08/17 19:00 Last Admin: 10/11/17 09:39 Dose: 1 tab Chlorthalidone (Hygroton) 25 mg PO TID [facility] Stop: 12/08/17 20:59 Last Admin: 10/11/17 13:56 Dose: 25 mg Docusate Sodium (Colace) 100 mg PO DAILY [facility] Stop: 12/09/17 08:59 Last Admin: 10/11/17 09:28 Dose: 100 mg Folic Acid (Folate) 1 mg PO DAILY [facility] Stop: 12/09/17 08:59 Last Admin: 10/11/17 09:28 Dose: 1 mg Vancomycin HCl 750 mg/ Sodium (Chloride) 250 mls @ 250 mls/hr IV Q12H [facility] Stop: 12/08/17 16:59 Last Admin: 10/11/17 04:42 Dose: 250 mls/hr Sodium Chloride (Nacl 0.9%) 1,000 mls @ 50 mls/hr IV .Q20H [facility] Stop: 12/08/17 21:29 Last Admin: 10/11/17 03:42 Dose: 50 mls/hr Insulin Aspart (Novolog Insulin Sliding Scale) 0 units SUBQ ACHS ORLY PRN Reason: Protocol Stop: 12/08/17 16:29 Last Admin: 10/11/17 13:57 Dose: Not Given Lactobacillus Rhamnosus (Culturelle 15b) 1 each PO DAILY [facility] Stop: 12/09/17 08:59 Last Admin: 10/11/17 09:28 Dose: 1 each Lactulose (Cephulac) 30 gm PO TID [facility] Stop: 12/09/17 20:59 Last Admin: 10/11/17 13:55 Dose: 30 gm Metoprolol Tartrate (Lopressor) 25 mg PO BID [facility] Stop: 12/09/17 08:59 Last Admin: 10/11/17 09:30 Dose: 25 mg Miscellaneous (Vte Chemical Prophylaxis Screen/ Admission) 1 ea PRN PRN PRN Reason: PROTOCOL Stop: 12/08/17 15:59 Miscellaneous (Vancomycin Iv Per Pharmacy) 1 ea PRN PRN PRN Reason: PROTOCOL Stop: 12/08/17 16:10 Miscellaneous (Probiotic Screen) 1 ea PRN PRN PRN Reason: PROTOCOL Stop: 12/09/17 08:44 Multivitamins/Vitamin C (Theragran) 1 tab PO DAILY [facility] Stop: 12/09/17 08:59 Last Admin: 10/11/17 09:28 Dose: 1 tab Neomycin/Polymyxin/Bacitracin (Triple Antibiotic Ointment) 1 appl TP QSHIFT [facility] Stop: 12/09/17 07:59 Last Admin: 10/11/17 09:40 Dose: 1 appl Nitroglycerin (Nitrostat) 0.4 mg SL Q5MIN PRN PRN Reason: Chest Pain Stop: 12/08/17 19:00 Pantoprazole Sodium (Protonix) 40 mg PO DAILY [facility] Stop: 12/09/17 08:59 Last Admin: 10/11/17 09:28 Dose: 40 mg Thiamine HCl (Vitamin B1) 100 mg PO DAILY [facility] Stop: 12/09/17 08:59 Last Admin: 10/11/17 09:28 Dose: 100 mg Valsartan (Diovan) 80 mg PO BID [facility] Stop: 12/09/17 08:59 Last Admin: 10/11/17 09:30 Dose: 80 mg Nutritional Asmnt/Malnutr-PDOC - Dietary Evaluation Malnutrition Findings (Please click <Entered> for more info): Nutritional Asmnt/Malnutrition Start: 10/10/17 15: 41 Text: Status: Complete Freq: Document 10/10/17 15:41 OCHOA (Rec: 10/10/17 15:49 OCHOA [email or web address]) Nutritional Asmnt/Malnutrition Patient General Information Nutritional Screening High Risk Consult Diagnosis cellulitis, electrolyte imbalance Pertinent Medical Hx/Surgical Hx HTN, DM, hyslipidemia, PUD/ GERD, arthritis, anxiety disorder, right middle toe amputation Subjective Information Consult received for wound to right second toe. Pt seen sleeping at time of visit, 1:1 sitter. Per ORACLE APPLICATION CONSULTANT, Pt ate well, 100% of dinner last night and 100% of breakfast this morning, NPO in the afternoon. Pt reported fish allergy. Current Diet Order/ Nutrition Support low sodium Pertinent Medications colace, folate, novolog, culturelle, lactulose, theragran, protonix, piperacillin, nacl 0.9%, vit B1, vancomycin Pertinent Labs 4/4 na 130, glucose 103, POC 100-128 Nutritional Hx/Data Height 5 ft 10 in Height (Calculated Centimeters) 177.8 Current Weight (lbs) 193 lb Weight (Calculated Kilograms) 87.5 Weight (Calculated Grams) 18921.3 [place] Body Weight 166 Body Mass Index (BMI) 27.6 Weight Status Overweight GI Symptoms GI Symptoms None Last BM no records Difficult in: None Food Allergies Yes: fish Skin Integrity/Comment: amputation pressure ulcer to right 2nd toe Current %PO Good (75-100%) Estimated Nutritional Goals BEE in Kcals: Adj wt of IBW Calories/Kcals/Kg 25-30. Kcals Calculated 5826-8353 Protein: Adj wt of IBW Protein g/k-1.2 Protein Calculated 78-94 Fluid: ml 1974-2369ml (1ml/kcal) Nutritional Problem 1. Problem Problem increased nutrition needs ( calorie and protein) Etiology increased metabolic demand for wound healing Signs/Symptoms: pressure ulcer to right 2nd toe Malnutrition Alert Protein-Calorie Malnutrition N/A Is there a minimum of two criteria No selected? Query Text:Check all the applicable criteria. A minimum of two criteria are recommended for diagnosis of either severe or non-severe malnutrition. Intervention/Recommendation Comments 1. Continue with current diet as ordered. Consider adding oral nutrition supplement Arginaid 1pkg daily to help with wound healing. 2. Monitor PO intake, wt, labs and skin integrity 3. F/U as moderate risk in 3-5 days, 10/13-10/15. Expected Outcomes/Goals Expected Outcomes/Goals 1. PO intake to meet at least 75% of nutritional needs. 2. Wt stability, skin to remain intact, labs to approach WNL.
--- NOTE | 2017-10-11 15:50 | History & Physical ---
ADMIT DATE: 10/11/2017 CHIEF COMPLAINT: Right toe pain. HISTORY OF PRESENT ILLNESS: This is a 66-year-old male who is a [facility] resident who has a 3-day history of right toe pain associated with redness and swelling. The patient denies any fevers at the [facility]. For further management, the patient is now admitted. PAST MEDICAL HISTORY: Hypertension, diabetes, dyslipidemia, GERD, arthritis. FAMILY HISTORY: Noncontributory. SOCIAL HISTORY: The patient is a [facility] resident. SURGICAL HISTORY: None per patient. ALLERGIES: ASPIRIN, FISH CONTAINING PRODUCTS. REVIEW OF SYSTEMS: GENERAL: Denies any fevers or chills. CARDIOVASCULAR: Denies chest pain. RESPIRATORY: Denies shortness of breath. GASTROINTESTINAL: Denies nausea, vomiting, abdominal pain. GENITOURINARY: The patient increased frequency or dysuria. NEUROLOGIC: No headaches, seizures or syncope. All other systems are reviewed and are negative. PHYSICAL EXAMINATION: GENERAL: The patient is well developed, well nourished, no acute distress. VITAL SIGNS: Temperature 97.4, heart rate 88, blood pressure 110/61, respirations 20, O2 98%. HEENT: Head normocephalic, atraumatic. NECK: Supple. No mass. LUNGS: Clear bilaterally. HEART: Regular rate and rhythm. ABDOMEN: Soft, nontender. LABORATORY DATA: WBC 3.2, H and H 10.1 and 29.4, platelet of 58. Sodium 130, potassium 4.1, chloride of 101, BUN 14, creatinine 0.9. ASSESSMENT: Cellulitis, electrolyte imbalance, hypokalemia, diabetes. PLAN: We will get Infectious Disease on the case, wound care. We will have one-to-one sitter for safety, empiric IV antibiotics. We will continue to follow this patient. JOB# [id number]
--- NOTE | 2017-10-11 23:51 | Infectious Disease Prog Note ---
Infectious Disease Subjective - Review of Systems Service Date: 10/11/17 Subjective: doing well. Infectious Disease Objective - Results Result Diagrams: 10/12/17 05:40 10/12/17 05:40 Recent Labs: Laboratory Last Values WBC 3.2 Th/cmm (4.8-10.8) L D 10/10/17 05:41 RBC 3.08 Mil/cmm (3.80-5.80) L 10/10/17 05:41 Hgb 10.1 gm/dL (12-16) L 10/10/17 05:41 Hct 29.4 % (41.0-60) L 10/10/17 05:41 MCV 95.6 fl (80-99) 10/10/17 05:41 MCH 32.9 pg (27.0-31.0) H 10/10/17 05:41 MCHC Differential 34.4 pg (28.0-36.0) 10/10/17 05:41 RDW 13.6 % (11.5-20.0) 10/10/17 05:41 Plt Count 58 Th/cmm (150-400) L 10/10/17 05:41 MPV 8.0 fl 10/10/17 05:41 Neutrophils % 68.1 % (40.0-80.0) 10/09/17 13:10 Band Neutrophils % 2 % (0-10) 10/10/17 05:41 Lymphocytes % 15.1 % (20.0-50.0) L 10/09/17 13:10 Monocytes % 6.6 % (2.0-10.0) 10/09/17 13:10 Eosinophils % 8.4 % (0.0-5.0) H 10/09/17 13:10 Basophils % 1.8 % (0.0-2.0) 10/09/17 13:10 Neutrophils (Manual) 56 % (40-80) 10/10/17 05:41 Lymphocytes 26 % (20-50) 10/10/17 05:41 Monocytes 3 % (2-10) 10/10/17 05:41 Eosinophils 13 % (0-5) H 10/10/17 05:41 Platelet Estimate DECREASED PLATELETS (NORMAL) 10/10/17 05:41 PT 12.1 SECONDS (9.5-11.5) H 10/09/17 13:10 INR 1.15 (0.5-1.4) 10/09/17 13:10 PTT (Actin FS) 26.2 SECONDS (26.0-38.0) 10/09/17 13:10 Sodium 130 mEq/L (136-145) L 10/10/17 05:41 Potassium 4.1 mEq/L (3.5-5.1) 10/10/17 05:41 Chloride 101 mEq/L (98-107) 10/10/17 05:41 Carbon Dioxide 22.2 mEq/L (21.0-31.0) 10/10/17 05:41 Anion Gap 10.9 (7.0-16.0) 10/10/17 05:41 BUN 14 mg/dL (7-25) 10/10/17 05:41 Creatinine 0.9 mg/dL (0.7-1.3) 10/10/17 05:41 Est GFR ( Amer) > 60.0 ml/min (>90) 10/10/17 05:41 Est GFR (Non-Af Amer) > 60.0 ml/min 10/10/17 05:41 BUN/Creatinine Ratio 15.6 10/10/17 05:41 Glucose 103 mg/dL (70-105) 10/10/17 05:41 POC Glucose 135 MG/DL (70 - 105) H 10/11/17 20:49 Whole Bld Lactic Acid 1.17 mmol/L (0.60-1.99) 10/09/17 13:10 Calcium 8.6 mg/dL (8.6-10.3) 10/10/17 05:41 Total Bilirubin 1.1 mg/dL (0.3-1.0) H 10/09/17 13:10 AST 27 U/L (13-39) 10/09/17 13:10 ALT 15 U/L (7-52) 10/09/17 13:10 Alkaline Phosphatase 103 U/L (34-104) 10/09/17 13:10 Ammonia 93 umol/L (16-53) H 10/10/17 05:41 Creatine Kinase 247 U/L (30-223) H 10/09/17 13:10 CK-MB (CK-2) 2.4 ng/mL (0.6-6.3) 10/09/17 13:10 Troponin I < 0.01 ng/mL (0.01-0.05) L 10/09/17 13:10 Total Protein 7.0 gm/dL (6.0-8.3) 10/09/17 13:10 Albumin 3.7 gm/dL (4.2-5.5) L 10/09/17 13:10 Globulin 3.3 gm/dL 10/09/17 13:10 Albumin/Globulin Ratio 1.1 (1.0-1.8) 10/09/17 13:10 Triglycerides 66 mg/dL (<150) 10/10/17 05:41 Cholesterol 133 mg/dL (<200) 10/10/17 05:41 LDL Cholesterol Direct 78 mg/dL (75-193) 10/10/17 05:41 HDL Cholesterol 45 mg/dL (23-92) 10/10/17 05:41 Urine Source MIDSTREAM 10/09/17 13:40 Urine Color YELLOW 10/09/17 13:40 Urine Clarity CLEAR (CLEAR) 10/09/17 13:40 Urine pH 6.0 (4.6 - 8.0) 10/09/17 13:40 Ur Specific [place] <= 1.005 (1.005-1.030) 10/09/17 13:40 Urine Protein NEGATIVE mg/dL (NEGATIVE) 10/09/17 13:40 Urine Glucose (UA) NEGATIVE mg/dL (NEGATIVE) 10/09/17 13:40 Urine Ketones NEGATIVE mg/dL (NEGATIVE) 10/09/17 13:40 Urine Blood NEGATIVE (NEGATIVE) 10/09/17 13:40 Urine Nitrate NEGATIVE (NEGATIVE) 10/09/17 13:40 Urine Bilirubin NEGATIVE (NEGATIVE) 10/09/17 13:40 Urine Urobilinogen 1.0 E.U./dL (0.2 - 1.0) 10/09/17 13:40 Ur Leukocyte Esterase NEGATIVE (NEGATIVE) 10/09/17 13:40 Urine RBC NONE SEEN /hpf (0-5) 10/09/17 13:40 Urine WBC NONE SEEN /hpf (0-5) 10/09/17 13:40 Ur Epithelial Cells NONE SEEN /lpf (FEW) 10/09/17 13:40 Urine Bacteria NONE SEEN /hpf (NONE SEEN) 10/09/17 13:40 Vancomycin Trough 6.0 ug/mL (5-10) 10/11/17 04:10 - Physical Exam Vitals and I&O: Vital Signs Temp 97.6 F 10/11/17 20:00 Pulse 76 10/11/17 20:52 Resp 20 10/11/17 20:00 BP 102/50 10/11/17 20:52 Pulse Ox 98 10/11/17 20:00 Intake & Output 10/11/17 10/11/17 10/12/17 06:59 18:59 06:59 Intake Total 1850 720 Balance 1850 720 Weight (lbs) 85.91 kg 85.91 kg Intake: Intake, IV Amount 1250 Sodium Chloride 0.9% 1, 1000 000 ml @ 50 mls/hr IV . Q20H [facility] Rx#:[id number] Vancomycin HCl 750 mg In 250 Sodium Chloride 0.9% 250 ml @ 250 mls/hr IV Q12H [facility] Rx#:[id number] Oral 300 720 Other 300 Other: # Voids 3 # Bowel Movements 1 2 Stool Characteristics Soft Weight Source Bedscale Bedscale Active Medications: Current Medications Acetaminophen (Tylenol) 650 mg PO Q4HR PRN PRN Reason: MILD PAIN OR TEMP >101 Stop: 12/08/17 19:00 Acetaminophen/Hydrocodone Bitart ([place] 5mg/325mg) 1 tab PO Q8H PRN PRN Reason: Severe Pain Stop: 12/08/17 19:00 Last Admin: 10/11/17 17:52 Dose: 1 tab Chlorthalidone (Hygroton) 25 mg PO TID [facility] Stop: 12/08/17 20:59 Last Admin: 10/11/17 20:52 Dose: Not Given Docusate Sodium (Colace) 100 mg PO DAILY [facility] Stop: 12/09/17 08:59 Last Admin: 10/11/17 09:28 Dose: 100 mg Folic Acid (Folate) 1 mg PO DAILY [facility] Stop: 12/09/17 08:59 Last Admin: 10/11/17 09:28 Dose: 1 mg Vancomycin HCl 750 mg/ Sodium (Chloride) 250 mls @ 250 mls/hr IV Q12H [facility] Stop: 12/08/17 16:59 Last Admin: 10/11/17 17:47 Dose: 250 mls/hr Sodium Chloride (Nacl 0.9%) 1,000 mls @ 50 mls/hr IV .Q20H [facility] Stop: 12/08/17 21:29 Last Admin: 10/11/17 03:42 Dose: 50 mls/hr Insulin Aspart (Novolog Insulin Sliding Scale) 0 units SUBQ ACHS [facility] PRN Reason: Protocol Stop: 12/08/17 16:29 Last Admin: 10/11/17 20:52 Dose: Not Given Lactobacillus Rhamnosus (Culturelle 15b) 1 each PO DAILY [facility] Stop: 12/09/17 08:59 Last Admin: 10/11/17 09:28 Dose: 1 each Lactulose (Cephulac) 30 gm PO TID [facility] Stop: 12/09/17 20:59 Last Admin: 10/11/17 20:50 Dose: 30 gm Metoprolol Tartrate (Lopressor) 25 mg PO BID [facility] Stop: 12/09/17 08:59 Last Admin: 10/11/17 17:52 Dose: 25 mg Miscellaneous (Vte Chemical Prophylaxis Screen/ Admission) 1 ea PRN PRN PRN Reason: PROTOCOL Stop: 12/08/17 15:59 Miscellaneous (Vancomycin Iv Per Pharmacy) 1 ea PRN PRN PRN Reason: PROTOCOL Stop: 12/08/17 16:10 Miscellaneous (Probiotic Screen) 1 ea PRN PRN PRN Reason: PROTOCOL Stop: 12/09/17 08:44 Multivitamins/Vitamin C (Theragran) 1 tab PO DAILY [facility] Stop: 12/09/17 08:59 Last Admin: 10/11/17 09:28 Dose: 1 tab Neomycin/Polymyxin/Bacitracin (Triple Antibiotic Ointment) 1 appl TP QSHIFT [facility] Stop: 12/09/17 07:59 Last Admin: 10/11/17 20:50 Dose: 1 appl Nitroglycerin (Nitrostat) 0.4 mg SL Q5MIN PRN PRN Reason: Chest Pain Stop: 12/08/17 19:00 Pantoprazole Sodium (Protonix) 40 mg PO DAILY [facility] Stop: 12/09/17 08:59 Last Admin: 10/11/17 09:28 Dose: 40 mg Thiamine HCl (Vitamin B1) 100 mg PO DAILY [facility] Stop: 12/09/17 08:59 Last Admin: 10/11/17 09:28 Dose: 100 mg Valsartan (Diovan) 80 mg PO BID [facility] Stop: 12/09/17 08:59 Last Admin: 10/11/17 17:53 Dose: Not Given General: no acute distress, well developed, well nourished HEENT: atraumatic, normocephalic, PERRLA, EOMI Neck: supple, no thyromegaly Cardiovascular: S1S2, regular Lungs: clear to auscultation bilaterally, clear to percussion Abdomen: soft, no tender, no distended Extremities: no cyanosis, no clubbing, no edema Neurological: awake, alert Skin: intact Infectious Disease Assmt/Plan - Assessment Assessment: 1, Right 2nd toe ulcers and cellulitis, 2, Neutropenia 3. Thrombocytopenia. 4, Cirrhosis of liver, 5. DM2. - Plan Plan: [facility] Nutritional Asmnt/Malnutr-PDOC - Dietary Evaluation Malnutrition Findings (Please click <Entered> for more info): Nutritional Asmnt/Malnutrition Start: 10/10/17 15: 41 Text: Status: Complete Freq: Document 10/10/17 15:41 FANI (Rec: 10/10/17 15:49 [id number]) Nutritional Asmnt/Malnutrition Patient General Information Nutritional Screening High Risk Consult Diagnosis cellulitis, electrolyte imbalance Pertinent Medical Hx/Surgical Hx HTN, DM, hyslipidemia, PUD/ GERD, arthritis, anxiety disorder, right middle toe amputation Subjective Information Consult received for wound to right second toe. Pt seen sleeping at time of visit, 1:1 sitter. Per [employer], Pt ate well, 100% of dinner last night and 100% of breakfast this morning, NPO in the afternoon. Pt reported fish allergy. Current Diet Order/ Nutrition Support low sodium Pertinent Medications colace, folate, novolog, culturelle, lactulose, theragran, protonix, piperacillin, nacl 0.9%, vit B1, vancomycin Pertinent Labs / na 130, glucose 103, POC 100-128 Nutritional Hx/Data Height 1.78 m Height (Calculated Centimeters) 177.8 Current Weight (lbs) 87.543 kg Weight (Calculated Kilograms) 87.5 Weight (Calculated Grams) 99139.3 [place] Body Weight 166 Body Mass Index (BMI) 27.6 Weight Status Overweight GI Symptoms GI Symptoms None Last BM no records Difficult in: None Food Allergies Yes: fish Skin Integrity/Comment: amputation pressure ulcer to right 2nd toe Current %PO Good (75-100%) Estimated Nutritional Goals BEE in Kcals: Adj wt of IBW Calories/Kcals/Kg 25-30. Kcals Calculated 2626-7688 Protein: Adj wt of IBW Protein g/k-1.2 Protein Calculated 78-94 Fluid: ml 1974-237ml (1ml/kcal) Nutritional Problem 1. Problem Problem increased nutrition needs ( calorie and protein) Etiology increased metabolic demand for wound healing Signs/Symptoms: pressure ulcer to right 2nd toe Malnutrition Alert Protein-Calorie Malnutrition N/A Is there a minimum of two criteria No selected? Query Text:Check all the applicable criteria. A minimum of two criteria are recommended for diagnosis of either severe or non-severe malnutrition. Intervention/Recommendation Comments 1. Continue with current diet as ordered. Consider adding oral nutrition supplement Arginaid 1pkg daily to help with wound healing. 2. Monitor PO intake, wt, labs and skin integrity 3. F/U as moderate risk in 3-5 days, 10/13-10/15. Expected Outcomes/Goals Expected Outcomes/Goals 1. PO intake to meet at least 75% of nutritional needs. 2. Wt stability, skin to remain intact, labs to approach WNL.
[2017-10-12] MEDS: Sodium Chloride 0.9% 1,000 ML IV SCH (05:14)
[2017-10-12 06:03] LABS: % EOSINOPHILS 11.6 % (0.0-5.0); % MONOCYTES 8.3 % (2.0-10.0); % NEUTROPHILS 59.1 % (40.0-80.0); EOSINOPHILE ABSOLUTE 0.4 Th/cmm (0.1-0.4); HEMATOCRIT 30.3 % (41.0-60); HEMOGLOBIN 10.2 gm/dL (12-16); LYMPHOCYTE ABSOLUTE 0.7 Th/cmm (1.5-3.0); MEAN CORPUSCULAR HGB CONC 33.7 pg (28.0-36.0); MEAN PLATELET VOLUME 7.9 fl; MONOCYTE ABSOLUTE 0.3 Th/cmm (0.3-1.0); NEUTROPHILE ABSOLUTE 1.8 Th/cmm (1.8-8.0); PLATELET COUNT 62 Th/cmm (150-400); RED BLOOD COUNT 3.19 Mil/cmm (3.80-5.80); RED CELL DISTRIBUTION WIDTH 13.3 % (11.5-20.0)
[2017-10-12 06:06] LABS: WHITE BLOOD COUNT 3.2 Th/cmm (4.8-10.8)
[2017-10-12 06:10] LABS: ANION GAP 9.9 (7.0-16.0); BUN - UREA NITROGEN 18 mg/dL (7-25); CALCIUM SERUM 8.7 mg/dL (8.6-10.3); CARBON DIOXIDE 22.1 mEq/L (21.0-31.0); CHLORIDE 106 mEq/L (98-107); CREATININE - SERUM 0.8 mg/dL (0.7-1.3); GFR AFRICAN-AMERICAN > 60.0 ml/min (>90); GFR NON AFRICAN-AMERICAN > 60.0 ml/min; GLUCOSE 88 mg/dL (70-105); SODIUM SERUM 134 mEq/L (136-145)
[2017-10-12] MEDS: INSULIN ASPART SLIDING SCALE 100 UNITS/ML UNIT SUBQ SCH ×3 (06:30→16:46)
[2017-10-12] MEDS: Lactobacillus Rhamnosus GG 15 Billion CFU CAP.SPRINK PO SCH (09:15)
[2017-10-12] MEDS: Triple Antibiotic Ointment 28gm tube TP SCH (09:15)
[2017-10-12] MEDS: Multivitamin Tab PO SCH (09:15)
[2017-10-12] MEDS: Pantoprazole 40 mg EC Tab PO SCH (09:15)
[2017-10-12] MEDS: Lactulose 10 Gm/15 mL 30mL UDC PO SCH ×2 (09:16→13:56)
[2017-10-12 11:16] LABS: FOLIC ACID 19.7 ng/mL (>3.0)
--- NOTE | 2017-10-12 14:28 | History and Physical ---
History of Present Illness - HPI Chief Complaint: Pt c/o: right toe pain HPI: 66 year old male patient present with right toe wound and swelling. Pt is c/o: pain on right toe x 3 days. Vital Signs: Last Vital Signs Temp 97.6 F 10/12/17 12:00 Pulse 78 10/12/17 13:55 Resp 18 10/12/17 12:00 BP 100/67 10/12/17 13:55 Pulse Ox 98 10/12/17 12:00 Family Medical History - Family Member Mother History Unknown: Yes Social History Smoke: No Alcohol: None Drugs: None Lives: With Family Domestic Violence: Negative - Medications Home Medications: Home Medication Medication Instructions Recorded Type Acetaminophen [Tylenol] 650 mg PO Q4HR PRN 10/09/17 History Chlorthalidone 25 mg PO TID 10/09/17 History Docusate Sodium [Colace] 100 mg PO DAILY 10/09/17 History Folic Acid [Folate*] 1 mg PO DAILY 10/09/17 History Hydrocodone/APAP 5mg/325mg [[place] 1 tab PO Q8H PRN 10/09/17 History 5mg/325mg] Metoprolol Tartrate 25 mg PO BID 10/09/17 History Multivitamin [Multivitamins] 1 sgl PO DAILY 10/09/17 History Neomycin/Bacitracin/Polymyxinb 1 appl TP QSHIFT 10/09/17 History [Triple Antibiotic Ointment] Nitroglycerin 0.4 mg SL Q5MIN PRN 10/09/17 History Pantoprazole Sodium 40 mg PO DAILY 10/09/17 History Thiamine [Vitamin B1] 100 mg PO DAILY 10/09/17 History Valsartan 80 mg PO BID 10/09/17 History - Allergies Allergies/Adverse Reactions: Allergies Allergy/AdvReac Type Severity Reaction Status Date / Time aspirin Allergy Verified 10/09/17 13:13 Fish Containing Products Allergy Verified 10/09/17 13:13 Review of Systems - Review of Systems Constitutional: Report: No Significant Eyes: Report: No Significant ENT: Report: No Significant Respiratory: Report: No Significant Cardiovascular: Report: No Significant Gastrointestinal: Report: No Significant Genitourinary: Report: No Significant Musculoskeletal: Report: Foot Pain Skin: Report: No Significant, Other (right toe swelling , red) Neurological: Report: No Significant - Lab Results All Lab Results last 24 hours: Laboratory Results - last 24 hr 10/11/17 10/11/17 10/11/17 04:10 04:10 06:03 WBC RBC Hgb Hct MCV MCH MCHC Differential RDW Plt Count MPV Neutrophils % Lymphocytes % Monocytes % Eosinophils % Basophils % Sodium Potassium Chloride Carbon Dioxide Anion Gap BUN Creatinine Est GFR ( Amer) Est GFR (Non-Af Amer) BUN/Creatinine Ratio Glucose POC Glucose 88 Calcium Tumor Marker AFP 2.8 Vitamin B12 737 Folic Acid 19.7 10/11/17 10/11/17 10/12/17 17:43 20:49 05:40 WBC 3.2 L RBC 3.19 L Hgb 10.2 L Hct 30.3 L MCV 95.0 MCH 32.0 H MCHC Differential 33.7 RDW 13.3 Plt Count 62 L MPV 7.9 Neutrophils % 59.1 Lymphocytes % 21.0 Monocytes % 8.3 Eosinophils % 11.6 H Basophils % 0.0 Sodium Potassium Chloride Carbon Dioxide Anion Gap BUN Creatinine Est GFR ( Amer) Est GFR (Non-Af Amer) BUN/Creatinine Ratio Glucose POC Glucose 78 135 H Calcium Tumor Marker AFP Vitamin B12 Folic Acid 10/12/17 10/12/17 10/12/17 05:40 07:20 12:18 WBC RBC Hgb Hct MCV MCH MCHC Differential RDW Plt Count MPV Neutrophils % Lymphocytes % Monocytes % Eosinophils % Basophils % Sodium 134 L Potassium 4.0 Chloride 106 Carbon Dioxide 22.1 Anion Gap 9.9 BUN 18 Creatinine 0.8 Est GFR ( Amer) > 60.0 Est GFR (Non-Af Amer) > 60.0 BUN/Creatinine Ratio 22.5 Glucose 88 POC Glucose 88 145 H Calcium 8.7 Tumor Marker AFP Vitamin B12 Folic Acid - Assessment Assessment: Current Active Problems Problem Status Onset RIGHT #2 TOE WOUND Acute - Plan Plan: as per ordersheet
--- NOTE | 2017-10-12 14:46 | Infectious Disease Prog Note ---
Infectious Disease Subjective - Review of Systems Service Date: 10/12/17 Subjective: No new change, no fever, the left foot toe redness improving. Infectious Disease Objective - Results Result Diagrams: 10/12/17 05:40 10/12/17 05:40 Recent Labs: Laboratory Last Values WBC 3.2 Th/cmm (4.8-10.8) L 10/12/17 05:40 RBC 3.19 Mil/cmm (3.80-5.80) L 10/12/17 05:40 Hgb 10.2 gm/dL (12-16) L 10/12/17 05:40 Hct 30.3 % (41.0-60) L 10/12/17 05:40 MCV 95.0 fl (80-99) 10/12/17 05:40 MCH 32.0 pg (27.0-31.0) H 10/12/17 05:40 MCHC Differential 33.7 pg (28.0-36.0) 10/12/17 05:40 RDW 13.3 % (11.5-20.0) 10/12/17 05:40 Plt Count 62 Th/cmm (150-400) L 10/12/17 05:40 MPV 7.9 fl 10/12/17 05:40 Neutrophils % 59.1 % (40.0-80.0) 10/12/17 05:40 Band Neutrophils % 2 % (0-10) 10/10/17 05:41 Lymphocytes % 21.0 % (20.0-50.0) 10/12/17 05:40 Monocytes % 8.3 % (2.0-10.0) 10/12/17 05:40 Eosinophils % 11.6 % (0.0-5.0) H 10/12/17 05:40 Basophils % 0.0 % (0.0-2.0) 10/12/17 05:40 Neutrophils (Manual) 56 % (40-80) 10/10/17 05:41 Lymphocytes 26 % (20-50) 10/10/17 05:41 Monocytes 3 % (2-10) 10/10/17 05:41 Eosinophils 13 % (0-5) H 10/10/17 05:41 Platelet Estimate DECREASED PLATELETS (NORMAL) 10/10/17 05:41 PT 12.1 SECONDS (9.5-11.5) H 10/09/17 13:10 INR 1.15 (0.5-1.4) 10/09/17 13:10 PTT (Actin FS) 26.2 SECONDS (26.0-38.0) 10/09/17 13:10 Sodium 134 mEq/L (136-145) L 10/12/17 05:40 Potassium 4.0 mEq/L (3.5-5.1) 10/12/17 05:40 Chloride 106 mEq/L (98-107) 10/12/17 05:40 Carbon Dioxide 22.1 mEq/L (21.0-31.0) 10/12/17 05:40 Anion Gap 9.9 (7.0-16.0) 10/12/17 05:40 BUN 18 mg/dL (7-25) 10/12/17 05:40 Creatinine 0.8 mg/dL (0.7-1.3) 10/12/17 05:40 Est GFR ( Amer) > 60.0 ml/min (>90) 10/12/17 05:40 Est GFR (Non-Af Amer) > 60.0 ml/min 10/12/17 05:40 BUN/Creatinine Ratio 22.5 10/12/17 05:40 Glucose 88 mg/dL (70-105) 10/12/17 05:40 POC Glucose 145 MG/DL (70 - 105) H 10/12/17 12:18 Whole Bld Lactic Acid 1.17 mmol/L (0.60-1.99) 10/09/17 13:10 Calcium 8.7 mg/dL (8.6-10.3) 10/12/17 05:40 Total Bilirubin 1.1 mg/dL (0.3-1.0) H 10/09/17 13:10 AST 27 U/L (13-39) 10/09/17 13:10 ALT 15 U/L (7-52) 10/09/17 13:10 Alkaline Phosphatase 103 U/L (34-104) 10/09/17 13:10 Ammonia 93 umol/L (16-53) H 10/10/17 05:41 Creatine Kinase 247 U/L (30-223) H 10/09/17 13:10 CK-MB (CK-2) 2.4 ng/mL (0.6-6.3) 10/09/17 13:10 Troponin I < 0.01 ng/mL (0.01-0.05) L 10/09/17 13:10 Total Protein 7.0 gm/dL (6.0-8.3) 10/09/17 13:10 Albumin 3.7 gm/dL (4.2-5.5) L 10/09/17 13:10 Globulin 3.3 gm/dL 10/09/17 13:10 Albumin/Globulin Ratio 1.1 (1.0-1.8) 10/09/17 13:10 Triglycerides 66 mg/dL (<150) 10/10/17 05:41 Cholesterol 133 mg/dL (<200) 10/10/17 05:41 LDL Cholesterol Direct 78 mg/dL (75-193) 10/10/17 05:41 HDL Cholesterol 45 mg/dL (23-92) 10/10/17 05:41 Tumor Marker AFP 2.8 ng/mL (0.0-8.3) 10/11/17 04:10 Vitamin B12 737 pg/mL (232-1245) 10/11/17 04:10 Folic Acid 19.7 ng/mL (>3.0) 10/11/17 04:10 Urine Source MIDSTREAM 10/09/17 13:40 Urine Color YELLOW 10/09/17 13:40 Urine Clarity CLEAR (CLEAR) 10/09/17 13:40 Urine pH 6.0 (4.6 - 8.0) 10/09/17 13:40 Ur Specific [place] <= 1.005 (1.005-1.030) 10/09/17 13:40 Urine Protein NEGATIVE mg/dL (NEGATIVE) 10/09/17 13:40 Urine Glucose (UA) NEGATIVE mg/dL (NEGATIVE) 10/09/17 13:40 Urine Ketones NEGATIVE mg/dL (NEGATIVE) 10/09/17 13:40 Urine Blood NEGATIVE (NEGATIVE) 10/09/17 13:40 Urine Nitrate NEGATIVE (NEGATIVE) 10/09/17 13:40 Urine Bilirubin NEGATIVE (NEGATIVE) 10/09/17 13:40 Urine Urobilinogen 1.0 E.U./dL (0.2 - 1.0) 10/09/17 13:40 Ur Leukocyte Esterase NEGATIVE (NEGATIVE) 10/09/17 13:40 Urine RBC NONE SEEN /hpf (0-5) 10/09/17 13:40 Urine WBC NONE SEEN /hpf (0-5) 10/09/17 13:40 Ur Epithelial Cells NONE SEEN /lpf (FEW) 10/09/17 13:40 Urine Bacteria NONE SEEN /hpf (NONE SEEN) 10/09/17 13:40 Vancomycin Trough 6.0 ug/mL (5-10) 10/11/17 04:10 - Physical Exam Vitals and I&O: Vital Signs Temp 97.6 F 10/12/17 12:00 Pulse 78 10/12/17 13:55 Resp 18 10/12/17 12:00 BP 100/67 10/12/17 13:55 Pulse Ox 98 10/12/17 12:00 Intake & Output 10/11/17 10/12/17 10/12/17 18:59 06:59 18:59 Intake Total 970 1000 Balance 970 1000 Weight (lbs) 85.91 kg 85.91 kg Intake: Intake, IV Amount 250 1000 Sodium Chloride 0.9% 1, 1000 000 ml @ 50 mls/hr IV . Q20H [facility] Rx#:[id number] Vancomycin HCl 750 mg In 250 Sodium Chloride 0.9% 250 ml @ 250 mls/hr IV Q12H [facility] Rx#:[id number] Oral 720 Other: # Voids 1 # Bowel Movements 2 1 Stool Characteristics Soft Weight Source Bedscale Bedscale Active Medications: Current Medications Acetaminophen (Tylenol) 650 mg PO Q4HR PRN PRN Reason: MILD PAIN OR TEMP >101 Stop: 12/08/17 19:00 Acetaminophen/Hydrocodone Bitart ([place] 5mg/325mg) 1 tab PO Q8H PRN PRN Reason: Severe Pain Stop: 12/08/17 19:00 Last Admin: 10/11/17 17:52 Dose: 1 tab Chlorthalidone (Hygroton) 25 mg PO TID [facility] Stop: 12/08/17 20:59 Last Admin: 10/12/17 13:55 Dose: 25 mg Docusate Sodium (Colace) 100 mg PO DAILY [facility] Stop: 12/09/17 08:59 Last Admin: 10/12/17 09:15 Dose: 100 mg Folic Acid (Folate) 1 mg PO DAILY [facility] Stop: 06/03/18 08:59 Last Admin: 10/12/17 09:15 Dose: 1 mg Sodium Chloride (Nacl 0.9%) 1,000 mls @ 50 mls/hr IV .Q20H [facility] Stop: 12/08/17 21:29 Last Admin: 10/12/17 05:14 Dose: 50 mls/hr Vancomycin HCl 1 gm/ Sodium (Chloride) 250 mls @ 165 mls/hr IV Q12H [facility] Stop: 12/11/17 16:59 Insulin Aspart (Novolog Insulin Sliding Scale) 0 units SUBQ ACHS [facility] PRN Reason: Protocol Stop: 12/08/17 16:29 Last Admin: 10/12/17 12:27 Dose: Not Given Lactobacillus Rhamnosus (Culturelle 15b) 1 each PO DAILY [facility] Stop: 12/09/17 08:59 Last Admin: 10/12/17 09:15 Dose: 1 each Lactulose (Cephulac) 30 gm PO TID [facility] Stop: 12/09/17 20:59 Last Admin: 10/12/17 13:56 Dose: 30 gm Metoprolol Tartrate (Lopressor) 25 mg PO BID [facility] Stop: 12/09/17 08:59 Last Admin: 10/12/17 09:15 Dose: 25 mg Miscellaneous (Vte Chemical Prophylaxis Screen/ Admission) 1 ea [facility] PRN PRN PRN Reason: PROTOCOL Stop: 12/08/17 15:59 Miscellaneous (Vancomycin Iv Per Pharmacy) 1 ea [facility] PRN PRN PRN Reason: PROTOCOL Stop: 12/08/17 16:10 Miscellaneous (Probiotic Screen) 1 ea MC PRN PRN PRN Reason: PROTOCOL Stop: 12/09/17 08:44 Multivitamins/Vitamin C (Theragran) 1 tab PO DAILY [facility] Stop: 12/09/17 08:59 Last Admin: 10/12/17 09:15 Dose: 1 tab Neomycin/Polymyxin/Bacitracin (Triple Antibiotic Ointment) 1 appl TP QSHIFT [facility] Stop: 12/09/17 07:59 Last Admin: 10/12/17 09:15 Dose: 1 appl Nitroglycerin (Nitrostat) 0.4 mg SL Q5MIN PRN PRN Reason: Chest Pain Stop: 12/08/17 19:00 Pantoprazole Sodium (Protonix) 40 mg PO DAILY [facility] Stop: 12/09/17 08:59 Last Admin: 10/12/17 09:15 Dose: 40 mg Thiamine HCl (Vitamin B1) 100 mg PO DAILY [facility] Stop: 12/09/17 08:59 Last Admin: 10/12/17 09:15 Dose: 100 mg Valsartan (Diovan) 80 mg PO BID [facility] Stop: 12/09/17 08:59 Last Admin: 10/12/17 09:15 Dose: 80 mg General: no acute distress, well developed, well nourished HEENT: atraumatic, normocephalic, PERRLA Neck: supple, no thyromegaly Cardiovascular: S1S2, regular Lungs: clear to auscultation bilaterally, clear to percussion Abdomen: soft, no tender Extremities: other (left ), no cyanosis, no clubbing, no edema Neurological: awake, alert Skin: other (right chest wall swelling with well healed surgical scar at the upper lateral quadrant, no redness or tenderness.) Infectious Disease Assmt/Plan - Problem List Patient Problems: All Active Problems RIGHT #2 TOE WOUND (Acute) - Assessment Assessment: 1, Right 2nd toe ulcers and cellulitis, 2, Neutropenia 3. Thrombocytopenia. 4, Cirrhosis of liver, 5. DM2. - Plan Plan: change antibiotics to augmentin po. Wound care. Nutritional Asmnt/Malnutr-PDOC - Dietary Evaluation Malnutrition Findings (Please click <Entered> for more info): Nutritional Asmnt/Malnutrition Start: 10/10/17 15: 41 Text: Status: Complete Freq: Document 10/10/17 15:41 FANI (Rec[facility] 10/10/17 15:[facility] Nutritional Asmnt/Malnutrition Patient General Information Nutritional Screening High Risk Consult Diagnosis cellulitis, electrolyte imbalance Pertinent Medical Hx/Surgical Hx HTN, DM, hyslipidemia, PUD/ GERD, arthritis, anxiety disorder, right middle toe amputation Subjective Information Consult received for wound to right second toe. Pt seen sleeping at time of visit, 1:1 sitter. Per SURVEY WORKER, Pt ate well, 100% of dinner last night and 100% of breakfast this morning, NPO in the afternoon. Pt reported fish allergy. Current Diet Order/ Nutrition Support low sodium Pertinent Medications colace, folate, novolog, culturelle, lactulose, theragran, protonix, piperacillin, nacl 0.9%, vit B1, vancomycin Pertinent Labs 10/10 na 130, glucose 103, POC 100-128 Nutritional Hx/Data Height 1.78 m Height (Calculated Centimeters) 177.8 Current Weight (lbs) 87.543 kg Weight (Calculated Kilograms) 87.5 Weight (Calculated Grams) 86832.3 [place] Body Weight 166 Body Mass Index (BMI) 27.6 Weight Status Overweight GI Symptoms GI Symptoms None Last BM no records Difficult in: None Food Allergies Yes: fish Skin Integrity/Comment: amputation pressure ulcer to right 2nd toe Current %PO Good (75-100%) Estimated Nutritional Goals BEE in Kcals: Adj wt of IBW Calories/Kcals/Kg 25-30. Kcals Calculated [id number] Protein: Adj wt of IBW Protein g/k-1.2 Protein Calculated 78-94 Fluid: ml 1974-237ml (1ml/kcal) Nutritional Problem 1. Problem Problem increased nutrition needs ( calorie and protein) Etiology increased metabolic demand for wound healing Signs/Symptoms: pressure ulcer to right 2nd toe Malnutrition Alert Protein-Calorie Malnutrition N/A Is there a minimum of two criteria No selected? Query Text:Check all the applicable criteria. A minimum of two criteria are recommended for diagnosis of either severe or non-severe malnutrition. Intervention/Recommendation Comments 1. Continue with current diet as ordered. Consider adding oral nutrition supplement Arginaid 1pkg daily to help with wound healing. 2. Monitor PO intake, wt, labs and skin integrity 3. F/U as moderate risk in 3-5 days, 10/13-10/15. Expected Outcomes/Goals Expected Outcomes/Goals 1. PO intake to meet at least 75% of nutritional needs. 2. Wt stability, skin to remain intact, labs to approach WNL.
[2017-10-12] MEDS: Hydrocodone/APAP 5mg/325mg Tab PO PRN (16:45)
[2017-10-12] MEDS ORDERED: Amoxicillin/Clavulanat 875/125 Tab PO SCH (17:00)
== END 2017-10-12 17:37 | DRG 602 ==
LOC: ER 12:30 → MSI 14:54 → TELE 21:24
PROVIDERS: ADMIT Internal Medicine; ATTEND Internal Medicine
DX: L03.031 Cellulitis of right toe (principal); G92 Toxic encephalopathy; E87.1 Hypo-osmolality and hyponatremia; D70.9 Neutropenia, unspecified; D69.6 Thrombocytopenia, unspecified; E11.621 Type 2 diabetes mellitus with foot ulcer; K70.30 Alcoholic cirrhosis of liver without ascites; I10 Essential (primary) hypertension; M19.90 Unspecified osteoarthritis, unspecified site; E78.5 Hyperlipidemia, unspecified; K21.9 Gastro-esophageal reflux disease without esophagitis; E87.6 Hypokalemia; F41.9 Anxiety disorder, unspecified; L97.519 Non-pressure chronic ulcer of other part of right foot with unspecified severity; R16.1 Splenomegaly, not elsewhere classified; D64.9 Anemia, unspecified; Z88.6 Allergy status to analgesic agent; Z91.013 Allergy to seafood; Z87.11 Personal history of peptic ulcer disease; Z89.421 Acquired absence of other right toe(s); Z87.891 Personal history of nicotine dependence
CPT/HCPCS: 36415-UA; 71045-TC; 76700-TC; 80048-TC; 80053-TC; 80061-TC; 80202-TC; 81001-TC; 82105-90; 82140-TC; 82550-TC; 82553; 82607-90; 82746-90; 82948-90; 83605; 84484-TC; 85007-TC; 85025-TC; 85027-TC; 85610-TC; 85730-TC; 93005; J0696; J1815; J2543; J3370; J7030; J7040; Z7610

== ENCOUNTER 2017-10-19 11:35 | Inpatient (IN) | payer MEDICARE, MEDICAID ==
--- NOTE | 2017-10-19 12:05 | ED Physician Chart ---
ED Chief Complaint/HPI - Patient Information Date Seen:: 10/19/17 Time Seen:: 12:04 Chief Complaint:: Right second toe pain History of Present Illness:: 67 yo male was brought from [place] to ER for evaluation of right second toe infection and pain. 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 Allergies:: Allergies Allergy/AdvReac Type Severity Reaction Status Date / Time aspirin Allergy Verified 10/09/17 13:13 Fish Containing Products Allergy Verified 10/09/17 13:13 Vitals:: Vital Signs - 8 hr 10/19/17 11:46 Temp 97.6 F HR 71 RR 16 BP 133/98 O2 Sat % 100 ED Review of Systems - Review of Systems General/Constitutional: No fever Skin: Skin lesions Head: No headache Eyes: No pain ENT: No nasal drainage Neck: No neck pain Cardio Vascular: No chest pain Pulmonary: No SOB GI: No nausea, No vomiting Musculoskeletal: Other (right toe pain and infection) Psychiatric: Anxiety Neurological: Paresthesia ED Past Medical History - Past Medical History Past Medical History: HTN, DM, PUD/GERD, Other (HEPATIC FAILURE, CIRRHOSIS, ANEMIA) Social History: Non Smoker, Alcohol, No Drug Use Surgical History: other (amputation of the 3rd toe of the right foot) Family Medical History - Family Member Mother History Unknown: Yes ED Physical Exam - Physical Examination General/Constitutional: Awake, Alert Head: Atraumatic Eyes: PERRL Skin: No rash ENMT: Nasal exam nl Neck: No nuchal rigidity Respiratory: No Wheeze/Rhonchi/Rales Cardio Vascular: RRR, No murmur, gallop, rubs, NL S1 S2 GI: No tenderness/rebounding/guarding Other Extremities comments:: nonhealing wound of the right second toe with surrounding erythema Neuro/Psych: No focal deficits ED Assessment - Assessment General Assessment: Right second toe cellulitis to rule out osteomyelitis DM II, poorly controlled Hypertension Hyponatremia Assessment/Comments:: CBC, CMP, A1c, ESR Vancomycin NS 1L IV bolus Admit to med surg ED Septic Shock - . Is Septic Shock (SBP<90, OR Lactate>4 mmol\L) present?: No - <6hrs of presentation: Vital Signs: Vital Signs - 8 hr 10/19/17 11:46 Temp 97.6 F HR 71 RR 16 BP 133/98 O2 Sat % 100 ED Reassessment (Disposition) - Reassessment Reassessment Condition:: Improved - Patient Disposition Discharge/Transfer:: Acute Care w/in this hosp Admitting Medical Physician:: Arabella Glover ED Discharge Plan - Patient Disposition Admit/Discharge/Transfer: ADMITTED INPATIENT
[2017-10-19 12:37] LABS: % EOSINOPHILS 8.1 % (0.0-5.0); % MONOCYTES 4.9 % (2.0-10.0); BASOPHILE ABSOLUTE 0.1 Th/cumm (0-0.2); EOSINOPHILE ABSOLUTE 0.4 Th/cmm (0.1-0.4); HEMATOCRIT 32.8 % (41.0-60); HEMOGLOBIN 11.4 gm/dL (12-16); MEAN CELL VOLUME 93.1 fl (80-99); MEAN CORPUSCULAR HEMOGLOBIN 32.4 pg (27.0-31.0); MEAN CORPUSCULAR HGB CONC 34.8 pg (28.0-36.0); MEAN PLATELET VOLUME 8.2 fl; MONOCYTE ABSOLUTE 0.2 Th/cmm (0.3-1.0); NEUTROPHILE ABSOLUTE 3.4 Th/cmm (1.8-8.0); PLATELET COUNT 62 Th/cmm (150-400); RED BLOOD COUNT 3.52 Mil/cmm (3.80-5.80); RED CELL DISTRIBUTION WIDTH 13.9 % (11.5-20.0); WHITE BLOOD COUNT 5.1 Th/cmm (4.8-10.8)
[2017-10-19 12:54] LABS: ALKALINE PHOSPHATASE 96 U/L (34-104); ANION GAP 13.5 (7.0-16.0); BILIRUBIN,TOTAL 1.2 mg/dL (0.3-1.0); BUN - UREA NITROGEN 18 mg/dL (7-25); CALCIUM SERUM 9.6 mg/dL (8.6-10.3); CARBON DIOXIDE 20.3 mEq/L (21.0-31.0); CHLORIDE 95 mEq/L (98-107); GFR AFRICAN-AMERICAN > 60.0 ml/min (>90); GFR NON AFRICAN-AMERICAN > 60.0 ml/min; GLUCOSE 85 mg/dL (70-105); POTASSIUM SERUM 3.8 mEq/L (3.5-5.1); SGOT 27 U/L (13-39); SGPT/ALT 13 U/L (7-52); SODIUM SERUM 125 mEq/L (136-145); TOTAL PROTEIN,SERUM 7.9 gm/dL (6.0-8.3)
[2017-10-19] MEDS ORDERED: Sodium Chloride 0.9% 1,000 ML IV ONE (13:14)
--- NOTE | 2017-10-19 17:17 | Consultation ---
Consult Note - Consult Note Service Date: 10/19/17 Referring Physician: Arabella Glover Consult Note: PHYSICIAN Consultation Note: Date of Admission: 10/19/17 Purpose of Consultation: RIGHT FOOT CELLULITIS R/O OSTEOMYELITIS. Chief Complaint: Patient CHRISTINE STANFORD was admitted to location Medical/Surgical Unit I with RIGHT FOOT CELLULITIS R/O OSTEOMYELITIS. History of Present Illness: 67 year old male has developed painful ulcer of the right 2nd toe for last 3 weeks. On initial evaluation, he was afebrile and WBC Count was 5,100. MRI was ordered and Vancomycin IV was given. ID consult was called for antibiotic management. Past Medical History: DM2, HTN, amputation of 3rd toe of right foot. Allergies Allergy/AdvReac Type Severity Reaction Status Date / Time aspirin Allergy Verified 10/09/17 13:13 Fish Containing Products Allergy Verified 10/09/17 13:13 Vital Signs Temp 97.6 F 10/19/17 15:47 Pulse 90 10/19/17 15:47 Resp 18 10/19/17 15:57 BP 156/82 10/19/17 15:47 Pulse Ox 92 10/19/17 15:47 Intake & Output 10/18/17 10/19/17 10/19/17 18:59 06:59 18:59 Intake Total 1000 Balance 1000 Intake: Intake, IV Amount 1000 Sodium Chloride 0.9% 1, 1000 000 ml @ Wide Open IV . Q0M ONE Rx#:[id number] Laboratory Results - last 24 hr 10/19/17 15:18 POC Glucose 66 L Home Medication Medication Instructions Recorded Type Acetaminophen [Tylenol] 650 mg PO Q4HR PRN 10/09/17 History Chlorthalidone 25 mg PO TID 10/09/17 History Docusate Sodium [Colace] 100 mg PO DAILY 10/09/17 History Folic Acid [Folate*] 1 mg PO DAILY 10/09/17 History Hydrocodone/APAP 5mg/325mg [[place] 1 tab PO Q8H PRN 10/09/17 History 5mg/325mg] Metoprolol Tartrate 25 mg PO BID 10/09/17 History Multivitamin [Multivitamins] 1 sgl PO DAILY 10/09/17 History Neomycin/Bacitracin/Polymyxinb 1 appl TP DAILY 10/09/17 History [Triple Antibiotic Ointment] Nitroglycerin 0.4 mg SL Q5MIN PRN 10/09/17 History Pantoprazole Sodium 40 mg PO DAILY 10/09/17 History Thiamine [Vitamin B1] 100 mg PO DAILY 10/09/17 History Valsartan 80 mg PO BID 10/09/17 History Acetaminophen [Tylenol Extra 1,000 mg PO Q4HR PRN 10/19/17 History Strength] Amoxicillin/Potassium Clav 1 tab PO BID 10/19/17 History [Augmentin 875-125 Tablet] Review of Systems: A 12 point ROS was reviewed with the pertinent positive and negatives noted in the HPI. Social History Smoking Status Unknown if ever smoked Family Medical History Nonsignificant. Physical Exam: General: Comfortable, not in any distress. HEENT: Head: normocephalic, atraumatic. Oral cavity moist, pink tongue, Eyes: No pallor, no icterus. Neck: Supple, no JVD, no carotid bruit. Cardio: S1 and S2 WNL. Respiratory: Vesicular breath sounds, no crackles, no wheezing. Abdominal: Soft NT ND BS present ( normoactive). Genital/Urinary: deferred Extremities: NCCE. Right foot: amputated 2nd toe sinus sound no discharge, no erythema. Neurological: AAOx3. Assessment: 1. right foot 2nd toe wound,. r/o osteomyelitis. 2, PAD. 3.DM2. Plan: Continue the same treatment. wound care. antibiotics wound care. Thank you, Dr Glover for involving me in takinig care of this patient. Signed, Quoc Hernandez M.D. [id number]
[2017-10-19 21:54] LABS: A1C % 5.9 % (4.0-6.0)
[2017-10-19] MEDS: Hydrocodone/APAP 5mg/325mg Tab PO PRN (22:15)
[2017-10-20 06:42] LABS: ANION GAP 9.9 (7.0-16.0); BUN - UREA NITROGEN 17 mg/dL (7-25); CALCIUM SERUM 9.1 mg/dL (8.6-10.3); CARBON DIOXIDE 22.8 mEq/L (21.0-31.0); CHLORIDE 104 mEq/L (98-107); CREATININE - SERUM 0.8 mg/dL (0.7-1.3); GFR AFRICAN-AMERICAN > 60.0 ml/min (>90); GFR NON AFRICAN-AMERICAN > 60.0 ml/min; GLUCOSE 80 mg/dL (70-105); POTASSIUM SERUM 3.7 mEq/L (3.5-5.1); SODIUM SERUM 133 mEq/L (136-145)
[2017-10-20 07:03] LABS: HEMATOCRIT 28.7 % (41.0-60); HEMOGLOBIN 9.8 gm/dL (12-16); MEAN CORPUSCULAR HEMOGLOBIN 32.3 pg (27.0-31.0); MEAN PLATELET VOLUME 8.8 fl; PLATELET COUNT 62 Th/cmm (150-400); RED BLOOD COUNT 3.02 Mil/cmm (3.80-5.80); RED CELL DISTRIBUTION WIDTH 13.4 % (11.5-20.0); WHITE BLOOD COUNT 2.9 Th/cmm (4.8-10.8)
[2017-10-20 07:04] LABS: MANUAL DIFF REQUIRED? YES
[2017-10-20 07:30] LABS: TOTAL CELLS COUNTED 100
[2017-10-20 07:31] LABS: BAND NEUTROPHILE 1 % (0-10); LYMPHOCYTE 28 % (20-50); MONOCYTE 2 % (2-10); NEUTROPHILS 60 % (40-80)
[2017-10-20 07:32] LABS: BASOPHIL 0 % (0-3); EOSINOPHIL 9 % (0-5)
[2017-10-20 07:35] LABS: PLATELET ESTIMATE DECREASED PLATELETS (NORMAL)
[2017-10-20] MEDS ORDERED: Non-Formulary Item 1 EA (Multivitamin [Multivitamins] 1 SGL) PO SCH (09:00)
[2017-10-20] MEDS ORDERED: CHLORTHALIDONE 25 MG PO SCH (09:00)
[2017-10-20] MEDS ORDERED: [UNRECOGNIZED DRUG - OTHER] TP SCH (09:00)
[2017-10-20] MEDS ORDERED: NEOMYCIN TP SCH (09:00)
[2017-10-20] MEDS: Hydrocodone/APAP 5mg/325mg Tab PO PRN ×2 (11:18→21:31)
[2017-10-20] MEDS: Pantoprazole 40 mg EC Tab PO SCH (11:21)
--- NOTE | 2017-10-20 11:41 | History & Physical ---
ADMIT DATE: 10/19/2017 CHIEF COMPLAINT: The patient came to the Emergency Room on 10/19/2017, was admitted for right toe cellulitis, rule out osteomyelitis. HISTORY OF PRESENT ILLNESS: A 67-year-old male patient developed painful ulcer of the second toe, has been there for last 3 weeks and actually the patient was seen earlier in the hospital here about a week ago and was discharged at that time with p.o. antibiotic and he started developing the ulcer. I saw him in [place] and the patient was complaining of severe pain, was sent to the ER and was admitted from the ER. MRI was ordered. The patient was given vancomycin and also the lab tests were ordered including the arteriovenous Doppler and further blood cultures. The patient has history of diabetes, hypertension, and amputation of the third toe. PAST MEDICAL HISTORY: As enumerated above. PAST SURGICAL HISTORY: As enumerated above. FAMILY HISTORY: Unremarkable. PHYSICAL EXAMINATION: GENERAL: Uncomfortable, complaining of pain of his right second toe. HEENT: Head: Normocephalic, atraumatic. Oral cavity is moist and pink. NECK: Supple, nontender. LUNGS: Clear. CARDIOVASCULAR SYSTEM: S1, S2 heard. ABDOMEN: Soft. Bowel sounds are heard. EXTREMITIES: Right foot second toe, there is ulceration, erythema and tenderness. DIAGNOSES: Second toe wound, rule out osteomyelitis, peripheral vascular disease, diabetes, hypertension, and HLD. The patient is to continue his IV vancomycin daily. The patient to get MRI and vascular studies and will also have Dr. Mendoza see the patient. I will follow the patient. [facility]# [id number]
--- NOTE | 2017-10-20 19:27 | Infectious Disease Prog Note ---
Infectious Disease Subjective - Review of Systems Service Date: 10/20/17 Subjective: Doing well. There is no new change. No fevers Infectious Disease Objective - Results Result Diagrams: 10/22/17 05:40 10/22/17 05:40 Recent Labs: Laboratory Last Values WBC 2.9 Th/cmm (4.8-10.8) L D 10/20/17 04:45 RBC 3.02 Mil/cmm (3.80-5.80) L 10/20/17 04:45 Hgb 9.8 gm/dL (12-16) L 10/20/17 04:45 Hct 28.7 % (41.0-60) L 10/20/17 04:45 MCV 95.0 fl (80-99) 10/20/17 04:45 MCH 32.3 pg (27.0-31.0) H 10/20/17 04:45 MCHC Differential 34.0 pg (28.0-36.0) 10/20/17 04:45 RDW 13.4 % (11.5-20.0) 10/20/17 04:45 Plt Count 62 Th/cmm (150-400) L 10/20/17 04:45 MPV 8.8 fl 10/20/17 04:45 Neutrophils % 67.0 % (40.0-80.0) 10/19/17 12:30 Band Neutrophils % 1 % (0-10) 10/20/17 04:45 Lymphocytes % 19.0 % (20.0-50.0) L 10/19/17 12:30 Monocytes % 4.9 % (2.0-10.0) 10/19/17 12:30 Eosinophils % 8.1 % (0.0-5.0) H 10/19/17 12:30 Basophils % 1.0 % (0.0-2.0) 10/19/17 12:30 Neutrophils (Manual) 60 % (40-80) 10/20/17 04:45 Lymphocytes 28 % (20-50) 10/20/17 04:45 Monocytes 2 % (2-10) 10/20/17 04:45 Eosinophils 9 % (0-5) H 10/20/17 04:45 Basophils 0 % (0-3) 10/20/17 04:45 Platelet Estimate DECREASED PLATELETS (NORMAL) 10/20/17 04:45 ESR 66 mm/hr (0-20) H 10/20/17 04:45 Sodium 133 mEq/L (136-145) L 10/20/17 04:45 Potassium 3.7 mEq/L (3.5-5.1) 10/20/17 04:45 Chloride 104 mEq/L (98-107) 10/20/17 04:45 Carbon Dioxide 22.8 mEq/L (21.0-31.0) 10/20/17 04:45 Anion Gap 9.9 (7.0-16.0) 10/20/17 04:45 BUN 17 mg/dL (7-25) 10/20/17 04:45 Creatinine 0.8 mg/dL (0.7-1.3) 10/20/17 04:45 Est GFR ( Amer) > 60.0 ml/min (>90) 10/20/17 04:45 Est GFR (Non-Af Amer) > 60.0 ml/min 10/20/17 04:45 BUN/Creatinine Ratio 21.3 10/20/17 04:45 Glucose 80 mg/dL (70-105) 10/20/17 04:45 POC Glucose 147 MG/DL (70 - 105) H 10/19/17 17:36 Hemoglobin A1c % 5.9 % (4.0-6.0) 10/19/17 12:30 Calcium 9.1 mg/dL (8.6-10.3) 10/20/17 04:45 Total Bilirubin 1.2 mg/dL (0.3-1.0) H 10/19/17 12:30 AST 27 U/L (13-39) 10/19/17 12:30 ALT 13 U/L (7-52) 10/19/17 12:30 Alkaline Phosphatase 96 U/L (34-104) 10/19/17 12:30 C-Reactive Protein 0.2 mg/dL (0.0-0.9) 10/20/17 04:45 Total Protein 7.9 gm/dL (6.0-8.3) 10/19/17 12:30 Albumin 4.0 gm/dL (4.2-5.5) L 10/19/17 12:30 Globulin 3.9 gm/dL 10/19/17 12:30 Albumin/Globulin Ratio 1.0 (1.0-1.8) 10/19/17 12:30 - Physical Exam Vitals and I&O: Vital Signs Temp 97.3 F 10/20/17 16:00 Pulse 79 10/20/17 16:59 Resp 19 10/20/17 16:00 BP 129/61 10/20/17 16:59 Pulse Ox 97 10/20/17 16:00 Intake & Output 10/20/17 10/20/17 10/21/17 06:59 18:59 06:59 Intake Total 730 Balance 730 Weight (lbs) 84.368 kg 84.368 kg Intake: Intake, IV Amount 250 Vancomycin HCl 1 gm In 250 Sodium Chloride 0.9% 250 ml @ 165 mls/hr IV ONCE ONE Rx#:[id number] Oral 480 Other: # Voids 3 Weight Source Bedscale Patient stated Active Medications: Current Medications Acetaminophen (Tylenol) 650 mg PO Q4H PRN PRN Reason: mild pain or fever >101 Stop: 12/18/17 20:59 Acetaminophen (Tylenol) 650 mg PO Q4HR PRN PRN Reason: MILD PAIN OR TEMP >101 Stop: 12/19/17 07:44 Acetaminophen (Tylenol Extra Strength) 1,000 mg PO Q4HR PRN PRN Reason: MODERATE PAIN Stop: 12/19/17 07:44 Acetaminophen/Hydrocodone Bitart ([place] 5mg/325mg) 1 tab PO Q8HR PRN PRN Reason: MOD. TO SEVERE PAIN Stop: 12/18/17 21:00 Last Admin: 10/20/17 11:18 Dose: 1 tab Acetaminophen/Hydrocodone Bitart ([place] 5mg/325mg) 1 tab PO Q8H PRN PRN Reason: Severe Pain Stop: 12/19/17 07:44 Chlorthalidone (Hygroton) 25 mg PO TID ORLY Stop: 12/19/17 13:59 Last Admin: 10/20/17 13:40 Dose: 25 mg Docusate Sodium (Colace) 100 mg PO DAILY ORLY Stop: 12/19/17 08:59 Last Admin: 10/20/17 11:20 Dose: 100 mg Folic Acid (Folate) 1 mg PO DAILY ORLY Stop: 12/19/17 08:59 Last Admin: 10/20/17 11:20 Dose: 1 mg Vancomycin HCl 1,000 mg/ (Sodium Chloride) 250 mls @ 250 mls/hr IV Q12H ORLY Stop: 12/19/17 09:59 Last Admin: 10/20/17 11:22 Dose: 250 mls/hr Metoprolol Tartrate (Lopressor) 25 mg PO BID ORLY Stop: 12/19/17 08:59 Last Admin: 10/20/17 16:59 Dose: 25 mg Miscellaneous (Vancomycin Iv Per Pharmacy) 1 ea MC PRN ORLY Stop: 12/18/17 17:29 Multivitamins/Vitamin C (Theragran) 1 tab PO DAILY ORLY Stop: 12/20/17 08:59 Neomycin/Polymyxin/Bacitracin (Triple Antibiotic Ointment) 1 appl TP DAILY ORLY Stop: 12/20/17 08:59 Nitroglycerin (Nitrostat) 0.4 mg SL Q5MIN PRN PRN Reason: Chest Pain Stop: 12/19/17 07:44 Pantoprazole Sodium (Protonix) 40 mg PO DAILY ORLY Stop: 12/19/17 08:59 Last Admin: 10/20/17 11:21 Dose: 40 mg Thiamine HCl (Vitamin B1) 100 mg PO DAILY ORLY Stop: 12/19/17 08:59 Last Admin: 10/20/17 11:19 Dose: 100 mg Valsartan (Diovan) 80 mg PO BID ORLY Stop: 12/19/17 08:59 Last Admin: 10/20/17 16:59 Dose: 80 mg General: no acute distress, well developed, well nourished HEENT: atraumatic, normocephalic, PERRLA Neck: supple, no thyromegaly Cardiovascular: S1S2, regular Lungs: no clear to auscultation bilaterally, no clear to percussion Abdomen: soft, tender Extremities: no cyanosis, no clubbing, no edema Neurological: awake, alert, oriented Skin: intact Infectious Disease Assmt/Plan - Problem List Patient Problems: All Active Problems RIGHT #2 TOE PAIN AND SWELLING (Acute) - Assessment Assessment: 1. right foot 2nd toe wound,. r/o osteomyelitis. 2, PAD. 3.DM2. - Plan Plan: Continue same treatment. Wound care.
[2017-10-21] MEDS: Pantoprazole 40 mg EC Tab PO SCH (09:08)
[2017-10-21] MEDS: Triple Antibiotic Ointment 28gm tube TP SCH (09:08)
[2017-10-21] MEDS: Multivitamin Tab PO SCH (09:08)
--- NOTE | 2017-10-21 09:43 | General Progress Note ---
Subjective - Review of Systems Service Date: 10/21/17 Events since last encounter: consult dictated MRI and doppler studies in progress Objective - Results Result Diagrams: 10/20/17 04:45 10/20/17 04:45 Recent Labs: Laboratory Last Values WBC 2.9 Th/cmm (4.8-10.8) L D 10/20/17 04:45 RBC 3.02 Mil/cmm (3.80-5.80) L 10/20/17 04:45 Hgb 9.8 gm/dL (12-16) L 10/20/17 04:45 Hct 28.7 % (41.0-60) L 10/20/17 04:45 MCV 95.0 fl (80-99) 10/20/17 04:45 MCH 32.3 pg (27.0-31.0) H 10/20/17 04:45 MCHC Differential 34.0 pg (28.0-36.0) 10/20/17 04:45 RDW 13.4 % (11.5-20.0) 10/20/17 04:45 Plt Count 62 Th/cmm (150-400) L 10/20/17 04:45 MPV 8.8 fl 10/20/17 04:45 Neutrophils % 67.0 % (40.0-80.0) 10/19/17 12:30 Band Neutrophils % 1 % (0-10) 10/20/17 04:45 Lymphocytes % 19.0 % (20.0-50.0) L 10/19/17 12:30 Monocytes % 4.9 % (2.0-10.0) 10/19/17 12:30 Eosinophils % 8.1 % (0.0-5.0) H 10/19/17 12:30 Basophils % 1.0 % (0.0-2.0) 10/19/17 12:30 Neutrophils (Manual) 60 % (40-80) 10/20/17 04:45 Lymphocytes 28 % (20-50) 10/20/17 04:45 Monocytes 2 % (2-10) 10/20/17 04:45 Eosinophils 9 % (0-5) H 10/20/17 04:45 Basophils 0 % (0-3) 10/20/17 04:45 Platelet Estimate DECREASED PLATELETS (NORMAL) 10/20/17 04:45 ESR 66 mm/hr (0-20) H 10/20/17 04:45 Sodium 133 mEq/L (136-145) L 10/20/17 04:45 Potassium 3.7 mEq/L (3.5-5.1) 10/20/17 04:45 Chloride 104 mEq/L (98-107) 10/20/17 04:45 Carbon Dioxide 22.8 mEq/L (21.0-31.0) 10/20/17 04:45 Anion Gap 9.9 (7.0-16.0) 10/20/17 04:45 BUN 17 mg/dL (7-25) 10/20/17 04:45 Creatinine 0.8 mg/dL (0.7-1.3) 10/20/17 04:45 Est GFR ( Amer) > 60.0 ml/min (>90) 10/20/17 04:45 Est GFR (Non-Af Amer) > 60.0 ml/min 10/20/17 04:45 BUN/Creatinine Ratio 21.3 10/20/17 04:45 Glucose 80 mg/dL (70-105) 10/20/17 04:45 POC Glucose 147 MG/DL (70 - 105) H 10/19/17 17:36 Hemoglobin A1c % 5.9 % (4.0-6.0) 10/19/17 12:30 Calcium 9.1 mg/dL (8.6-10.3) 10/20/17 04:45 Total Bilirubin 1.2 mg/dL (0.3-1.0) H 10/19/17 12:30 AST 27 U/L (13-39) 10/19/17 12:30 ALT 13 U/L (7-52) 10/19/17 12:30 Alkaline Phosphatase 96 U/L (34-104) 10/19/17 12:30 C-Reactive Protein 0.2 mg/dL (0.0-0.9) 10/20/17 04:45 Total Protein 7.9 gm/dL (6.0-8.3) 10/19/17 12:30 Albumin 4.0 gm/dL (4.2-5.5) L 10/19/17 12:30 Globulin 3.9 gm/dL 10/19/17 12:30 Albumin/Globulin Ratio 1.0 (1.0-1.8) 10/19/17 12:30 - Physical Exam Vitals and I&O: Vital Signs Temp 98.7 F 10/21/17 04:00 Pulse 91 10/21/17 09:14 Resp 17 10/21/17 04:00 BP 91/58 10/21/17 09:14 Pulse Ox 96 10/21/17 04:00 Intake & Output 10/20/17 10/21/17 10/21/17 18:59 06:59 18:59 Intake Total 250 200 Output Total 500 Balance 250 -300 Weight (lbs) 84.368 kg 85.003 kg Intake: Intake, IV Amount 250 Vancomycin HCl 1,000 mg 250 In Sodium Chloride 0.9% 250 ml @ 250 mls/hr IV Q12H [facility] Rx#:[id number] Oral 200 Output: Urine 500 Other: # Bowel Movements 0 Weight Source Patient stated Bedscale Active Medications: Current Medications Acetaminophen (Tylenol) 650 mg PO Q4H PRN PRN Reason: mild pain or fever >101 Stop: 12/18/17 20:59 Acetaminophen (Tylenol) 650 mg PO Q4HR PRN PRN Reason: MILD PAIN OR TEMP >101 Stop: 12/19/17 07:44 Acetaminophen (Tylenol Extra Strength) 1,000 mg PO Q4HR PRN PRN Reason: MODERATE PAIN Stop: 12/19/17 07:44 Acetaminophen/Hydrocodone Bitart ([place] 5mg/325mg) 1 tab PO Q8HR PRN PRN Reason: MOD. TO SEVERE PAIN Stop: 12/18/17 21:00 Last Admin: 10/20/17 21:31 Dose: 1 tab Acetaminophen/Hydrocodone Bitart ([place] 5mg/325mg) 1 tab PO Q8H PRN PRN Reason: Severe Pain Stop: 12/19/17 07:44 Chlorthalidone (Hygroton) 25 mg PO TID [facility] Stop: 12/19/17 13:59 Last Admin: 10/21/17 09:13 Dose: Not Given Docusate Sodium (Colace) 100 mg PO DAILY [facility] Stop: 12/19/17 08:59 Last Admin: 10/21/17 09:08 Dose: 100 mg Folic Acid (Folate) 1 mg PO DAILY [facility] Stop: 12/19/17 08:59 Last Admin: 10/21/17 09:08 Dose: 1 mg Vancomycin HCl 1,000 mg/ (Sodium Chloride) 250 mls @ 250 mls/hr IV Q12H ORLY Stop: 12/19/17 09:59 Last Admin: 10/20/17 21:33 Dose: 250 mls/hr Metoprolol Tartrate (Lopressor) 25 mg PO BID ORLY Stop: 12/19/17 08:59 Last Admin: 10/21/17 09:13 Dose: Not Given Miscellaneous (Vancomycin Iv Per Pharmacy) 1 ea MC PRN ORLY Stop: 12/18/17 17:29 Multivitamins/Vitamin C (Theragran) 1 tab PO DAILY ORLY Stop: 12/20/17 08:59 Last Admin: 10/21/17 09:08 Dose: 1 tab Neomycin/Polymyxin/Bacitracin (Triple Antibiotic Ointment) 1 appl TP DAILY ORLY Stop: 12/20/17 08:59 Last Admin: 10/21/17 09:08 Dose: 1 appl Nitroglycerin (Nitrostat) 0.4 mg SL Q5MIN PRN PRN Reason: Chest Pain Stop: 12/19/17 07:44 Pantoprazole Sodium (Protonix) 40 mg PO DAILY ORLY Stop: 12/19/17 08:59 Last Admin: 10/21/17 09:08 Dose: 40 mg Thiamine HCl (Vitamin B1) 100 mg PO DAILY ORLY Stop: 12/19/17 08:59 Last Admin: 10/21/17 09:08 Dose: 100 mg Valsartan (Diovan) 80 mg PO BID ORLY Stop: 12/19/17 08:59 Last Admin: 10/21/17 09:14 Dose: Not Given Assessment/Plan - Problem List Patient Problems: All Active Problems RIGHT #2 TOE PAIN AND SWELLING (Acute)
[2017-10-21 09:58] LABS: INR 1.16 (0.5-1.4); PROTHROMBIN TIME (TEST) 12.2 SECONDS (9.5-11.5)
[2017-10-21 09:59] LABS: % EOSINOPHILS 9.3 % (0.0-5.0); % LYMPHOCYTES 17.8 % (20.0-50.0); % MONOCYTES 5.5 % (2.0-10.0); % NEUTROPHILS 67.4 % (40.0-80.0); EOSINOPHILE ABSOLUTE 0.4 Th/cmm (0.1-0.4); HEMATOCRIT 34.8 % (41.0-60); HEMOGLOBIN 11.9 gm/dL (12-16); LYMPHOCYTE ABSOLUTE 0.8 Th/cmm (1.5-3.0); MEAN CELL VOLUME 95.2 fl (80-99); MEAN CORPUSCULAR HEMOGLOBIN 32.7 pg (27.0-31.0); MEAN CORPUSCULAR HGB CONC 34.3 pg (28.0-36.0); MEAN PLATELET VOLUME 8.7 fl; MONOCYTE ABSOLUTE 0.2 Th/cmm (0.3-1.0); NEUTROPHILE ABSOLUTE 3.1 Th/cmm (1.8-8.0); PLATELET COUNT 79 Th/cmm (150-400); RED BLOOD COUNT 3.66 Mil/cmm (3.80-5.80); RED CELL DISTRIBUTION WIDTH 13.5 % (11.5-20.0); WHITE BLOOD COUNT 4.5 Th/cmm (4.8-10.8)
[2017-10-21 10:02] LABS: ANION GAP 11.9 (7.0-16.0); BUN - UREA NITROGEN 23 mg/dL (7-25); CALCIUM SERUM 9.4 mg/dL (8.6-10.3); CARBON DIOXIDE 23.9 mEq/L (21.0-31.0); CHLORIDE 101 mEq/L (98-107); GFR AFRICAN-AMERICAN > 60.0 ml/min (>90); GFR NON AFRICAN-AMERICAN > 60.0 ml/min; GLUCOSE 198 mg/dL (70-105); POTASSIUM SERUM 3.8 mEq/L (3.5-5.1); SODIUM SERUM 133 mEq/L (136-145)
[2017-10-21] MEDS: Hydrocodone/APAP 5mg/325mg Tab PO PRN ×2 (10:20→19:33)
--- NOTE | 2017-10-21 10:56 | Consultation ---
DATE OF CONSULTATION: 10/21/2017 SURGICAL CONSULT REFERRING PHYSICIAN: Dr. Glover. REASON FOR CONSULTATION: Cellulitis, right second toe. Thank you for referring this patient to me. HISTORY OF PRESENT ILLNESS: This is a 67-year-old male who claims he started having swelling and redness of the right second toe about a month ago. He has history of diabetes and hypertension. He had amputation of the right third toe about a year ago. The patient claims he is able to walk without claudication, although he claims he has some cramping at night. SOCIAL HISTORY: He denies smoking. LABORATORY STUDIES ON THIS ADMISSION: The WBC is normal, hemoglobin 11.4, platelet is low at 62,000, etiology of this is not known at this point. ESR is high at 67. Chemistry: BUN and creatinine are normal. Sodium low at 125 and bilirubin high 1.2. No x-rays have been done. PHYSICAL EXAMINATION: GENERAL: The patient is alert and oriented. EXTREMITIES: The right second toe is swollen and tender and slightly erythematous. There is absence of the right third toe from amputation. No palpable pedal pulses. Popliteal also difficult to feel. PLAN: Doppler arterial and venous studies of lower extremities and MRI of the right foot. We will follow. [facility]# [id number]
--- NOTE | 2017-10-21 12:17 | General Progress Note ---
Subjective - Review of Systems Events since last encounter: patient comfortable denies pain Objective - Results Result Diagrams: 10/21/17 09:35 10/21/17 09:35 Recent Labs: Laboratory Last Values WBC 4.5 Th/cmm (4.8-10.8) L 10/21/17 09:35 RBC 3.66 Mil/cmm (3.80-5.80) L 10/21/17 09:35 Hgb 11.9 gm/dL (12-16) L 10/21/17 09:35 Hct 34.8 % (41.0-60) L 10/21/17 09:35 MCV 95.2 fl (80-99) 10/21/17 09:35 MCH 32.7 pg (27.0-31.0) H 10/21/17 09:35 MCHC Differential 34.3 pg (28.0-36.0) 10/21/17 09:35 RDW 13.5 % (11.5-20.0) 10/21/17 09:35 Plt Count 79 Th/cmm (150-400) L 10/21/17 09:35 MPV 8.7 fl 10/21/17 09:35 Neutrophils % 67.4 % (40.0-80.0) 10/21/17 09:35 Band Neutrophils % 1 % (0-10) 10/20/17 04:45 Lymphocytes % 17.8 % (20.0-50.0) L 10/21/17 09:35 Monocytes % 5.5 % (2.0-10.0) 10/21/17 09:35 Eosinophils % 9.3 % (0.0-5.0) H 10/21/17 09:35 Basophils % 0.0 % (0.0-2.0) 10/21/17 09:35 Neutrophils (Manual) 60 % (40-80) 10/20/17 04:45 Lymphocytes 28 % (20-50) 10/20/17 04:45 Monocytes 2 % (2-10) 10/20/17 04:45 Eosinophils 9 % (0-5) H 10/20/17 04:45 Basophils 0 % (0-3) 10/20/17 04:45 Platelet Estimate DECREASED PLATELETS (NORMAL) 10/20/17 04:45 ESR 66 mm/hr (0-20) H 10/20/17 04:45 PT 12.2 SECONDS (9.5-11.5) H 10/21/17 09:35 INR 1.16 (0.5-1.4) 10/21/17 09:35 Sodium 133 mEq/L (136-145) L 10/21/17 09:35 Potassium 3.8 mEq/L (3.5-5.1) 10/21/17 09:35 Chloride 101 mEq/L (98-107) 10/21/17 09:35 Carbon Dioxide 23.9 mEq/L (21.0-31.0) 10/21/17 09:35 Anion Gap 11.9 (7.0-16.0) 10/21/17 09:35 BUN 23 mg/dL (7-25) 10/21/17 09:35 Creatinine 1.0 mg/dL (0.7-1.3) 10/21/17 09:35 Est GFR ( Amer) > 60.0 ml/min (>90) 10/21/17 09:35 Est GFR (Non-Af Amer) > 60.0 ml/min 10/21/17 09:35 BUN/Creatinine Ratio 23.0 10/21/17 09:35 Glucose 198 mg/dL (70-105) H 10/21/17 09:35 POC Glucose 147 MG/DL (70 - 105) H 10/19/17 17:36 Hemoglobin A1c % 5.9 % (4.0-6.0) 10/19/17 12:30 Calcium 9.4 mg/dL (8.6-10.3) 10/21/17 09:35 Total Bilirubin 1.2 mg/dL (0.3-1.0) H 10/19/17 12:30 AST 27 U/L (13-39) 10/19/17 12:30 ALT 13 U/L (7-52) 10/19/17 12:30 Alkaline Phosphatase 96 U/L (34-104) 10/19/17 12:30 C-Reactive Protein 0.2 mg/dL (0.0-0.9) 10/20/17 04:45 Total Protein 7.9 gm/dL (6.0-8.3) 10/19/17 12:30 Albumin 4.0 gm/dL (4.2-5.5) L 10/19/17 12:30 Globulin 3.9 gm/dL 10/19/17 12:30 Albumin/Globulin Ratio 1.0 (1.0-1.8) 10/19/17 12:30 Vancomycin Trough 13.3 ug/mL (5-10) H 10/21/17 09:35 - Physical Exam Vitals and I&O: Vital Signs Temp 97.7 F 10/21/17 08:00 Pulse 91 10/21/17 09:14 Resp 18 10/21/17 08:00 BP 91/58 10/21/17 09:14 Pulse Ox 99 10/21/17 08:00 Intake & Output 10/20/17 10/21/17 10/21/17 18:59 06:59 18:59 Intake Total 250 450 Output Total 500 Balance 250 -50 Weight (lbs) 84.368 kg 85.003 kg Intake: Intake, IV Amount 250 250 Vancomycin HCl 1,000 mg 250 250 In Sodium Chloride 0.9% 250 ml @ 250 mls/hr IV Q12H [facility] Rx#:[id number] Oral 200 Output: Urine 500 Other: # Bowel Movements 0 Weight Source Patient stated Bedscale Active Medications: Current Medications Acetaminophen (Tylenol) 650 mg PO Q4H PRN PRN Reason: mild pain or fever >101 Stop: 12/18/17 20:59 Acetaminophen (Tylenol) 650 mg PO Q4HR PRN PRN Reason: MILD PAIN OR TEMP >101 Stop: 12/19/17 07:44 Acetaminophen (Tylenol Extra Strength) 1,000 mg PO Q4HR PRN PRN Reason: MODERATE PAIN Stop: 12/19/17 07:44 Acetaminophen/Hydrocodone Bitart ([place] 5mg/325mg) 1 tab PO Q8HR PRN PRN Reason: MOD. TO SEVERE PAIN Stop: 12/18/17 21:00 Last Admin: 10/21/17 10:20 Dose: 1 tab Acetaminophen/Hydrocodone Bitart ([place] 5mg/325mg) 1 tab PO Q8H PRN PRN Reason: Severe Pain Stop: 12/19/17 07:44 Chlorthalidone (Hygroton) 25 mg PO TID ORLY Stop: 12/19/17 13:59 Last Admin: 10/21/17 09:13 Dose: Not Given Docusate Sodium (Colace) 100 mg PO DAILY ORLY Stop: 12/19/17 08:59 Last Admin: 10/21/17 09:08 Dose: 100 mg Folic Acid (Folate) 1 mg PO DAILY ORLY Stop: 12/19/17 08:59 Last Admin: 10/21/17 09:08 Dose: 1 mg Vancomycin HCl 1,000 mg/ (Sodium Chloride) 250 mls @ 250 mls/hr IV Q12H OR[facility] Stop: 12/19/17 09:59 Last Admin: 10/21/17 10:20 Dose: 250 mls/hr Metoprolol Tartrate (Lopressor) 25 mg PO BID ORLY Stop: 12/19/17 08:59 Last Admin: 10/21/17 09:13 Dose: Not Given Miscellaneous (Vancomycin Iv Per Pharmacy) 1 ea MC PRN ORLY Stop: 12/18/17 17:29 Multivitamins/Vitamin C (Theragran) 1 tab PO DAILY ORLY Stop: 12/20/17 08:59 Last Admin: 10/21/17 09:08 Dose: 1 tab Neomycin/Polymyxin/Bacitracin (Triple Antibiotic Ointment) 1 appl TP DAILY ORLY Stop: 12/20/17 08:59 Last Admin: 10/21/17 09:08 Dose: 1 appl Nitroglycerin (Nitrostat) 0.4 mg SL Q5MIN PRN PRN Reason: Chest Pain Stop: 12/19/17 07:44 Pantoprazole Sodium (Protonix) 40 mg PO DAILY ORLY Stop: 12/19/17 08:59 Last Admin: 10/21/17 09:08 Dose: 40 mg Thiamine HCl (Vitamin B1) 100 mg PO DAILY ORLY Stop: 12/19/17 08:59 Last Admin: 10/21/17 09:08 Dose: 100 mg Valsartan (Diovan) 80 mg PO BID ORLY Stop: 12/19/17 08:59 Last Admin: 10/21/17 09:14 Dose: Not Given Assessment/Plan - Problem List Patient Problems: All Active Problems RIGHT #2 TOE PAIN AND SWELLING (Acute)
--- NOTE | 2017-10-21 23:39 | Infectious Disease Prog Note ---
Infectious Disease Subjective - Review of Systems Service Date: 10/21/17 Subjective: Doing well. no fever. Infectious Disease Objective - Results Result Diagrams: 10/22/17 05:40 10/22/17 05:40 Recent Labs: Laboratory Last Values WBC 4.5 Th/cmm (4.8-10.8) L 10/21/17 09:35 RBC 3.66 Mil/cmm (3.80-5.80) L 10/21/17 09:35 Hgb 11.9 gm/dL (12-16) L 10/21/17 09:35 Hct 34.8 % (41.0-60) L 10/21/17 09:35 MCV 95.2 fl (80-99) 10/21/17 09:35 MCH 32.7 pg (27.0-31.0) H 10/21/17 09:35 MCHC Differential 34.3 pg (28.0-36.0) 10/21/17 09:35 RDW 13.5 % (11.5-20.0) 10/21/17 09:35 Plt Count 79 Th/cmm (150-400) L 10/21/17 09:35 MPV 8.7 fl 10/21/17 09:35 Neutrophils % 67.4 % (40.0-80.0) 10/21/17 09:35 Band Neutrophils % 1 % (0-10) 10/20/17 04:45 Lymphocytes % 17.8 % (20.0-50.0) L 10/21/17 09:35 Monocytes % 5.5 % (2.0-10.0) 10/21/17 09:35 Eosinophils % 9.3 % (0.0-5.0) H 10/21/17 09:35 Basophils % 0.0 % (0.0-2.0) 10/21/17 09:35 Neutrophils (Manual) 60 % (40-80) 10/20/17 04:45 Lymphocytes 28 % (20-50) 10/20/17 04:45 Monocytes 2 % (2-10) 10/20/17 04:45 Eosinophils 9 % (0-5) H 10/20/17 04:45 Basophils 0 % (0-3) 10/20/17 04:45 Platelet Estimate DECREASED PLATELETS (NORMAL) 10/20/17 04:45 ESR 66 mm/hr (0-20) H 10/20/17 04:45 PT 12.2 SECONDS (9.5-11.5) H 10/21/17 09:35 INR 1.16 (0.5-1.4) 10/21/17 09:35 Sodium 133 mEq/L (136-145) L 10/21/17 09:35 Potassium 3.8 mEq/L (3.5-5.1) 10/21/17 09:35 Chloride 101 mEq/L (98-107) 10/21/17 09:35 Carbon Dioxide 23.9 mEq/L (21.0-31.0) 10/21/17 09:35 Anion Gap 11.9 (7.0-16.0) 10/21/17 09:35 BUN 23 mg/dL (7-25) 10/21/17 09:35 Creatinine 1.0 mg/dL (0.7-1.3) 10/21/17 09:35 Est GFR ( Amer) > 60.0 ml/min (>90) 10/21/17 09:35 Est GFR (Non-Af Amer) > 60.0 ml/min 10/21/17 09:35 BUN/Creatinine Ratio 23.0 10/21/17 09:35 Glucose 198 mg/dL (70-105) H 10/21/17 09:35 POC Glucose 147 MG/DL (70 - 105) H 10/19/17 17:36 Hemoglobin A1c % 5.9 % (4.0-6.0) 10/19/17 12:30 Calcium 9.4 mg/dL (8.6-10.3) 10/21/17 09:35 Total Bilirubin 1.2 mg/dL (0.3-1.0) H 10/19/17 12:30 AST 27 U/L (13-39) 10/19/17 12:30 ALT 13 U/L (7-52) 10/19/17 12:30 Alkaline Phosphatase 96 U/L (34-104) 10/19/17 12:30 C-Reactive Protein 0.2 mg/dL (0.0-0.9) 10/20/17 04:45 Total Protein 7.9 gm/dL (6.0-8.3) 10/19/17 12:30 Albumin 4.0 gm/dL (4.2-5.5) L 10/19/17 12:30 Globulin 3.9 gm/dL 10/19/17 12:30 Albumin/Globulin Ratio 1.0 (1.0-1.8) 10/19/17 12:30 Vancomycin Trough 13.3 ug/mL (5-10) H 10/21/17 09:35 - Physical Exam Vitals and I&O: Vital Signs Temp 97.4 F 10/21/17 20:00 Pulse 89 10/21/17 21:05 Resp 18 10/21/17 20:00 BP 99/64 10/21/17 21:05 Pulse Ox 100 10/21/17 20:00 Intake & Output 10/21/17 10/21/17 10/22/17 06:59 18:59 06:59 Intake Total 450 750 Output Total 500 Balance -50 750 Weight (lbs) 85.003 kg 85.003 kg Intake: Intake, IV Amount 250 250 Vancomycin HCl 1,000 mg 250 250 In Sodium Chloride 0.9% 250 ml @ 250 mls/hr IV Q12H [facility] Rx#:[id number] Oral 200 500 Output: Urine 500 Other: # Voids 3 # Bowel Movements 0 1 Weight Source Bedscale Bedscale Active Medications: Current Medications Acetaminophen (Tylenol) 650 mg PO Q4H PRN PRN Reason: mild pain or fever >101 Stop: 12/18/17 20:59 Acetaminophen (Tylenol) 650 mg PO Q4HR PRN PRN Reason: MILD PAIN OR TEMP >101 Stop: 12/19/17 07:44 Acetaminophen (Tylenol Extra Strength) 1,000 mg PO Q4HR PRN PRN Reason: MODERATE PAIN Stop: 12/19/17 07:44 Acetaminophen/Hydrocodone Bitart ([place] 5mg/325mg) 1 tab PO Q8HR PRN PRN Reason: MOD. TO SEVERE PAIN Stop: 12/18/17 21:00 Last Admin: 10/21/17 19:33 Dose: 1 tab Acetaminophen/Hydrocodone Bitart ([place] 5mg/325mg) 1 tab PO Q8H PRN PRN Reason: Severe Pain Stop: 12/19/17 07:44 Chlorthalidone (Hygroton) 25 mg PO TID [facility] Stop: 12/19/17 13:59 Last Admin: 10/21/17 21:05 Dose: Not Given Docusate Sodium (Colace) 100 mg PO DAILY [facility] Stop: 12/19/17 08:59 Last Admin: 10/21/17 09:08 Dose: 100 mg Folic Acid (Folate) 1 mg PO DAILY [facility] Stop: 12/19/17 08:59 Last Admin: 10/21/17 09:08 Dose: 1 mg Vancomycin HCl 1,000 mg/ (Sodium Chloride) 250 mls @ 250 mls/hr IV Q12H [facility] Stop: 12/19/17 09:59 Last Admin: 10/21/17 21:05 Dose: 250 mls/hr Metoprolol Tartrate (Lopressor) 25 mg PO BID [facility] Stop: 12/19/17 08:59 Last Admin: 10/21/17 17:15 Dose: Not Given Miscellaneous (Vancomycin Iv Per Pharmacy) 1 ea MC PRN [facility] Stop: 12/18/17 17:29 Multivitamins/Vitamin C (Theragran) 1 tab PO DAILY [facility] Stop: 12/20/17 08:59 Last Admin: 10/21/17 09:08 Dose: 1 tab Neomycin/Polymyxin/Bacitracin (Triple Antibiotic Ointment) 1 appl TP DAILY [facility] Stop: 12/20/17 08:59 Last Admin: 10/21/17 09:08 Dose: 1 appl Nitroglycerin (Nitrostat) 0.4 mg SL Q5MIN PRN PRN Reason: Chest Pain Stop: 12/19/17 07:44 Pantoprazole Sodium (Protonix) 40 mg PO DAILY [facility] Stop: 12/19/17 08:59 Last Admin: 10/21/17 09:08 Dose: 40 mg Thiamine HCl (Vitamin B1) 100 mg PO DAILY [facility] Stop: 12/19/17 08:59 Last Admin: 10/21/17 09:08 Dose: 100 mg Valsartan (Diovan) 80 mg PO BID [facility] Stop: 12/19/17 08:59 Last Admin: 10/21/17 17:15 Dose: Not Given General: no acute distress, well developed, well nourished HEENT: atraumatic, normocephalic, PERRLA Neck: supple Cardiovascular: S1S2, regular Abdomen: soft, no tender, no distended Extremities: no cyanosis Neurological: awake Infectious Disease Assmt/Plan - Problem List Patient Problems: All Active Problems RIGHT #2 TOE PAIN AND SWELLING (Acute) - Assessment Assessment: Doing well. - Plan Plan: Continue same treatment.
[2017-10-22 06:10] LABS: % BASOPHILS 0.1 % (0.0-2.0); % EOSINOPHILS 11.3 % (0.0-5.0); % MONOCYTES 7.5 % (2.0-10.0); % NEUTROPHILS 57.1 % (40.0-80.0); EOSINOPHILE ABSOLUTE 0.4 Th/cmm (0.1-0.4); LYMPHOCYTE ABSOLUTE 0.9 Th/cmm (1.5-3.0); MEAN CORPUSCULAR HGB CONC 34.1 pg (28.0-36.0); MEAN PLATELET VOLUME 8.2 fl; MONOCYTE ABSOLUTE 0.3 Th/cmm (0.3-1.0); NEUTROPHILE ABSOLUTE 2.3 Th/cmm (1.8-8.0); PLATELET COUNT 62 Th/cmm (150-400); RED BLOOD COUNT 3.13 Mil/cmm (3.80-5.80); RED CELL DISTRIBUTION WIDTH 13.4 % (11.5-20.0)
[2017-10-22 06:13] LABS: WHITE BLOOD COUNT 3.9 Th/cmm (4.8-10.8)
[2017-10-22 06:14] LABS: HEMATOCRIT 29.4 % (41.0-60)
[2017-10-22 06:29] LABS: ANION GAP 10.5 (7.0-16.0); BUN - UREA NITROGEN 23 mg/dL (7-25); CALCIUM SERUM 8.8 mg/dL (8.6-10.3); CARBON DIOXIDE 23.7 mEq/L (21.0-31.0); CHLORIDE 105 mEq/L (98-107); CREATININE - SERUM 0.9 mg/dL (0.7-1.3); GFR AFRICAN-AMERICAN > 60.0 ml/min (>90); GFR NON AFRICAN-AMERICAN > 60.0 ml/min; POTASSIUM SERUM 4.2 mEq/L (3.5-5.1); SODIUM SERUM 135 mEq/L (136-145)
[2017-10-22 06:33] LABS: GLUCOSE 89 mg/dL (70-105)
--- NOTE | 2017-10-22 07:42 | Diagnostic Imaging Report ---
Right lower extremity DVT study HISTORY: Right toe swelling COMPARISON: None Technique: Longitudinal and transverse sonographic images of the right lower extremity veins were obtained with doppler analysis. FINDINGS: There is normal compressibility, augmentation and phasicity of the right common femoral, superficial femoral, popliteal, and posterior tibial veins. No thrombus is visualized. There appears to be areas of subcutaneous edema along the right lower extremity. IMPRESSION: No evidence of thrombus within the right lower extremity veins.
--- NOTE | 2017-10-22 07:44 | Diagnostic Imaging Report ---
Right lower extremity arterial Doppler study HISTORY: Pain rule out osteomyelitis COMPARISON: None Technique: Longitudinal and transverse sonographic images of the right lower extremity arteries were obtained with doppler analysis. FINDINGS: Exam of the right side demonstrates moderate atherosclerotic vascular disease with areas of calcified plaque formation. Biphasic waveforms are seen distally. No evidence of occlusion. Right JEREMY is 1.0 left JEREMY is 1.0 IMPRESSION: Moderate atherosclerotic vascular disease with areas of calcified plaque formation. No sonographic evidence of occlusion. Given clinical history, follow-up x-rays or MRI in the region of concern may be obtained for further assessment.
[2017-10-22] MEDS: Multivitamin Tab PO SCH (08:30)
[2017-10-22] MEDS: Pantoprazole 40 mg EC Tab PO SCH (08:30)
[2017-10-22] MEDS: Triple Antibiotic Ointment 28gm tube TP SCH (08:31)
[2017-10-22] MEDS: Hydrocodone/APAP 5mg/325mg Tab PO PRN ×2 (09:49→18:59)
--- NOTE | 2017-10-22 12:12 | Infectious Disease Prog Note ---
Infectious Disease Subjective - Review of Systems Service Date: 10/22/17 Subjective: Doing well. Plan for MRI today Infectious Disease Objective - Results Result Diagrams: 10/22/17 05:40 10/22/17 05:40 Recent Labs: Laboratory Last Values WBC 3.9 Th/cmm (4.8-10.8) L 10/22/17 05:40 RBC 3.13 Mil/cmm (3.80-5.80) L 10/22/17 05:40 Hgb 10.0 gm/dL (12-16) L 10/22/17 05:40 Hct 29.4 % (41.0-60) L D 10/22/17 05:40 MCV 94.0 fl (80-99) 10/22/17 05:40 MCH 32.0 pg (27.0-31.0) H 10/22/17 05:40 MCHC Differential 34.1 pg (28.0-36.0) 10/22/17 05:40 RDW 13.4 % (11.5-20.0) 10/22/17 05:40 Plt Count 62 Th/cmm (150-400) L 10/22/17 05:40 MPV 8.2 fl 10/22/17 05:40 Neutrophils % 57.1 % (40.0-80.0) 10/22/17 05:40 Band Neutrophils % 1 % (0-10) 10/20/17 04:45 Lymphocytes % 24.0 % (20.0-50.0) 10/22/17 05:40 Monocytes % 7.5 % (2.0-10.0) 10/22/17 05:40 Eosinophils % 11.3 % (0.0-5.0) H 10/22/17 05:40 Basophils % 0.1 % (0.0-2.0) 10/22/17 05:40 Neutrophils (Manual) 60 % (40-80) 10/20/17 04:45 Lymphocytes 28 % (20-50) 10/20/17 04:45 Monocytes 2 % (2-10) 10/20/17 04:45 Eosinophils 9 % (0-5) H 10/20/17 04:45 Basophils 0 % (0-3) 10/20/17 04:45 Platelet Estimate DECREASED PLATELETS (NORMAL) 10/20/17 04:45 ESR 66 mm/hr (0-20) H 10/20/17 04:45 PT 12.2 SECONDS (9.5-11.5) H 10/21/17 09:35 INR 1.16 (0.5-1.4) 10/21/17 09:35 Sodium 135 mEq/L (136-145) L 10/22/17 05:40 Potassium 4.2 mEq/L (3.5-5.1) 10/22/17 05:40 Chloride 105 mEq/L (98-107) 10/22/17 05:40 Carbon Dioxide 23.7 mEq/L (21.0-31.0) 10/22/17 05:40 Anion Gap 10.5 (7.0-16.0) 10/22/17 05:40 BUN 23 mg/dL (7-25) 10/22/17 05:40 Creatinine 0.9 mg/dL (0.7-1.3) 10/22/17 05:40 Est GFR ( Amer) > 60.0 ml/min (>90) 10/22/17 05:40 Est GFR (Non-Af Amer) > 60.0 ml/min 10/22/17 05:40 BUN/Creatinine Ratio 25.6 10/22/17 05:40 Glucose 89 mg/dL (70-105) D 10/22/17 05:40 POC Glucose 147 MG/DL (70 - 105) H 10/19/17 17:36 Hemoglobin A1c % 5.9 % (4.0-6.0) 10/19/17 12:30 Calcium 8.8 mg/dL (8.6-10.3) 10/22/17 05:40 Total Bilirubin 1.2 mg/dL (0.3-1.0) H 10/19/17 12:30 AST 27 U/L (13-39) 10/19/17 12:30 ALT 13 U/L (7-52) 10/19/17 12:30 Alkaline Phosphatase 96 U/L (34-104) 10/19/17 12:30 C-Reactive Protein 0.2 mg/dL (0.0-0.9) 10/20/17 04:45 Total Protein 7.9 gm/dL (6.0-8.3) 10/19/17 12:30 Albumin 4.0 gm/dL (4.2-5.5) L 10/19/17 12:30 Globulin 3.9 gm/dL 10/19/17 12:30 Albumin/Globulin Ratio 1.0 (1.0-1.8) 10/19/17 12:30 Vancomycin Trough 13.3 ug/mL (5-10) H 10/21/17 09:35 - Physical Exam Vitals and I&O: Vital Signs Temp 97.4 F 10/22/17 04:00 Pulse 93 10/22/17 08:31 Resp 18 10/22/17 04:00 BP 106/63 10/22/17 08:31 Pulse Ox 98 10/22/17 04:00 Intake & Output 10/21/17 10/22/17 10/22/17 18:59 06:59 18:59 Intake Total 750 Balance 750 Weight (lbs) 85.003 kg 82.871 kg Intake: Intake, IV Amount 250 Vancomycin HCl 1,000 mg 250 In Sodium Chloride 0.9% 250 ml @ 250 mls/hr IV Q12H [facility] Rx#:[id number] Oral 500 Other: # Voids 3 # Bowel Movements 1 Weight Source Bedscale Bedscale Active Medications: Current Medications Acetaminophen (Tylenol) 650 mg PO Q4H PRN PRN Reason: mild pain or fever >101 Stop: 12/18/17 20:59 Acetaminophen (Tylenol) 650 mg PO Q4HR PRN PRN Reason: MILD PAIN OR TEMP >101 Stop: 12/19/17 07:44 Acetaminophen (Tylenol Extra Strength) 1,000 mg PO Q4HR PRN PRN Reason: MODERATE PAIN Stop: 12/19/17 07:44 Acetaminophen/Hydrocodone Bitart ([place] 5mg/325mg) 1 tab PO Q8HR PRN PRN Reason: MOD. TO SEVERE PAIN Stop: 12/18/17 21:00 Last Admin: 10/22/17 09:49 Dose: 1 tab Acetaminophen/Hydrocodone Bitart ([place] 5mg/325mg) 1 tab PO Q8H PRN PRN Reason: Severe Pain Stop: 12/19/17 07:44 Chlorthalidone (Hygroton) 25 mg PO TID [facility] Stop: 12/19/17 13:59 Last Admin: 10/22/17 08:30 Dose: Not Given Docusate Sodium (Colace) 100 mg PO DAILY [facility] Stop: 12/19/17 08:59 Last Admin: 10/22/17 08:31 Dose: 100 mg Folic Acid (Folate) 1 mg PO DAILY [facility] Stop: 12/19/17 08:59 Last Admin: 10/22/17 08:30 Dose: 1 mg Vancomycin HCl 1 gm/ Dextrose 250 mls @ 165 mls/hr IV Q12H [facility] Stop: 12/21/17 19:59 Metoprolol Tartrate (Lopressor) 25 mg PO BID [facility] Stop: 12/19/17 08:59 Last Admin: 10/22/17 08:31 Dose: Not Given Miscellaneous (Vancomycin Iv Per Pharmacy) 1 ea MC PRN [facility] Stop: 12/18/17 17:29 Multivitamins/Vitamin C (Theragran) 1 tab PO DAILY [facility] Stop: 12/20/17 08:59 Last Admin: 10/22/17 08:30 Dose: 1 tab Neomycin/Polymyxin/Bacitracin (Triple Antibiotic Ointment) 1 appl TP DAILY [facility] Stop: 12/20/17 08:59 Last Admin: 10/22/17 08:31 Dose: 1 appl Nitroglycerin (Nitrostat) 0.4 mg SL Q5MIN PRN PRN Reason: Chest Pain Stop: 12/19/17 07:44 Pantoprazole Sodium (Protonix) 40 mg PO DAILY [facility] Stop: 12/19/17 08:59 Last Admin: 10/22/17 08:30 Dose: 40 mg Thiamine HCl (Vitamin B1) 100 mg PO DAILY [facility] Stop: 12/19/17 08:59 Last Admin: 10/22/17 08:30 Dose: 100 mg Valsartan (Diovan) 80 mg PO BID [facility] Stop: 12/19/17 08:59 Last Admin: 10/22/17 08:31 Dose: Not Given General: no acute distress, well developed, well nourished HEENT: atraumatic, normocephalic, PERRLA, EOMI Neck: supple, no lymphadenopathy Cardiovascular: S1S2, regular Lungs: clear to auscultation bilaterally, clear to percussion Abdomen: soft, no tender, no distended, no mass, no rebound Extremities: other (left second toe wound), no cyanosis, no clubbing, no edema Infectious Disease Assmt/Plan - Problem List Patient Problems: All Active Problems RIGHT #2 TOE PAIN AND SWELLING (Acute) - Assessment Assessment: 1. right foot 2nd toe wound,. r/o osteomyelitis. 2, PAD. 3.DM2. - Plan Plan: Will continue antibiotic.
--- NOTE | 2017-10-22 12:51 | Diagnostic Imaging Report ---
MRI right lower extremity without IV contrast History: Pain, rule out osteomyelitis. History of third toe amputation Comparison: None Technique/procedure: Multiplanar T1, T2, and STIR-weighted sequences of the right forefoot were obtained without IV contrast. Findings: Exam is limited due to motion. There is evidence of amputation of the third phalanges. Moderate to Advanced degenerative changes are noted greatest at the first MTP joint with small subchondral cysts noted in this region. There is bone marrow edema seen within the second mid and distal phalanx with surrounding mild soft tissue swelling. Degenerative changes of the second metatarsophalangeal joint is noted. The regional flexor and extensor tendons are intact. IMPRESSION: Bone marrow edema within the second mid and distal phalanx. The edema involves the entire second mid phalanx just adjacent to the proximal joint line. These findings are most suggestive of osteomyelitis in these regions. Please correlate clinically. Involvement of the second proximal interphalangeal joint is less likely but cannot be completely ruled out. Evidence of amputation of the third phalanges. Degenerative changes.
--- NOTE | 2017-10-22 20:27 | Internal Medicine Prog Note ---
Internal Medicine Objective - Results Result Diagrams: 10/22/17 05:40 10/22/17 05:40 Recent Labs: Laboratory Last Values WBC 3.9 Th/cmm (4.8-10.8) L 10/22/17 05:40 RBC 3.13 Mil/cmm (3.80-5.80) L 10/22/17 05:40 Hgb 10.0 gm/dL (12-16) L 10/22/17 05:40 Hct 29.4 % (41.0-60) L D 10/22/17 05:40 MCV 94.0 fl (80-99) 10/22/17 05:40 MCH 32.0 pg (27.0-31.0) H 10/22/17 05:40 MCHC Differential 34.1 pg (28.0-36.0) 10/22/17 05:40 RDW 13.4 % (11.5-20.0) 10/22/17 05:40 Plt Count 62 Th/cmm (150-400) L 10/22/17 05:40 MPV 8.2 fl 10/22/17 05:40 Neutrophils % 57.1 % (40.0-80.0) 10/22/17 05:40 Band Neutrophils % 1 % (0-10) 10/20/17 04:45 Lymphocytes % 24.0 % (20.0-50.0) 10/22/17 05:40 Monocytes % 7.5 % (2.0-10.0) 10/22/17 05:40 Eosinophils % 11.3 % (0.0-5.0) H 10/22/17 05:40 Basophils % 0.1 % (0.0-2.0) 10/22/17 05:40 Neutrophils (Manual) 60 % (40-80) 10/20/17 04:45 Lymphocytes 28 % (20-50) 10/20/17 04:45 Monocytes 2 % (2-10) 10/20/17 04:45 Eosinophils 9 % (0-5) H 10/20/17 04:45 Basophils 0 % (0-3) 10/20/17 04:45 Platelet Estimate DECREASED PLATELETS (NORMAL) 10/20/17 04:45 ESR 66 mm/hr (0-20) H 10/20/17 04:45 PT 12.2 SECONDS (9.5-11.5) H 10/21/17 09:35 INR 1.16 (0.5-1.4) 10/21/17 09:35 Sodium 135 mEq/L (136-145) L 10/22/17 05:40 Potassium 4.2 mEq/L (3.5-5.1) 10/22/17 05:40 Chloride 105 mEq/L (98-107) 10/22/17 05:40 Carbon Dioxide 23.7 mEq/L (21.0-31.0) 10/22/17 05:40 Anion Gap 10.5 (7.0-16.0) 10/22/17 05:40 BUN 23 mg/dL (7-25) 10/22/17 05:40 Creatinine 0.9 mg/dL (0.7-1.3) 10/22/17 05:40 Est GFR ( Amer) > 60.0 ml/min (>90) 10/22/17 05:40 Est GFR (Non-Af Amer) > 60.0 ml/min 10/22/17 05:40 BUN/Creatinine Ratio 25.6 10/22/17 05:40 Glucose 89 mg/dL (70-105) D 10/22/17 05:40 POC Glucose 147 MG/DL (70 - 105) H 10/19/17 17:36 Hemoglobin A1c % 5.9 % (4.0-6.0) 10/19/17 12:30 Calcium 8.8 mg/dL (8.6-10.3) 10/22/17 05:40 Total Bilirubin 1.2 mg/dL (0.3-1.0) H 10/19/17 12:30 AST 27 U/L (13-39) 10/19/17 12:30 ALT 13 U/L (7-52) 10/19/17 12:30 Alkaline Phosphatase 96 U/L (34-104) 10/19/17 12:30 C-Reactive Protein 0.2 mg/dL (0.0-0.9) 10/20/17 04:45 Total Protein 7.9 gm/dL (6.0-8.3) 10/19/17 12:30 Albumin 4.0 gm/dL (4.2-5.5) L 10/19/17 12:30 Globulin 3.9 gm/dL 10/19/17 12:30 Albumin/Globulin Ratio 1.0 (1.0-1.8) 10/19/17 12:30 Vancomycin Trough 13.3 ug/mL (5-10) H 10/21/17 09:35 - Physical Exam Vitals and I&O: Vital Signs Temp 97.8 F 10/22/17 15:48 Pulse 87 10/22/17 16:36 Resp 17 10/22/17 15:48 BP 112/60 10/22/17 16:36 Pulse Ox 98 10/22/17 15:48 Intake & Output 10/22/17 10/22/17 10/23/17 06:59 18:59 06:59 Intake Total 1080 Balance 1080 Weight (lbs) 82.871 kg 82.871 kg Intake: Oral 1080 Other: # Voids 3 # Bowel Movements 0 Weight Source Bedscale Estimated Active Medications: Current Medications Acetaminophen (Tylenol) 650 mg PO Q4H PRN PRN Reason: mild pain or fever >101 Stop: 12/18/17 20:59 Acetaminophen (Tylenol) 650 mg PO Q4HR PRN PRN Reason: MILD PAIN OR TEMP >101 Stop: 12/19/17 07:44 Acetaminophen (Tylenol Extra Strength) 1,000 mg PO Q4HR PRN PRN Reason: MODERATE PAIN Stop: 12/19/17 07:44 Acetaminophen/Hydrocodone Bitart ([place] 5mg/325mg) 1 tab PO Q8HR PRN PRN Reason: MOD. TO SEVERE PAIN Stop: 12/18/17 21:00 Last Admin: 10/22/17 18:59 Dose: 1 tab Acetaminophen/Hydrocodone Bitart ([place] 5mg/325mg) 1 tab PO Q8H PRN PRN Reason: Severe Pain Stop: 12/19/17 07:44 Chlorthalidone (Hygroton) 25 mg PO TID [facility] Stop: 12/19/17 13:59 Last Admin: 10/22/17 14:35 Dose: Not Given Docusate Sodium (Colace) 100 mg PO DAILY [facility] Stop: 12/19/17 08:59 Last Admin: 10/22/17 08:31 Dose: 100 mg Folic Acid (Folate) 1 mg PO DAILY [facility] Stop: 12/19/17 08:59 Last Admin: 10/22/17 08:30 Dose: 1 mg Vancomycin HCl 1 gm/ Dextrose 250 mls @ 165 mls/hr IV Q12H [facility] Stop: 12/21/17 19:59 Metoprolol Tartrate (Lopressor) 25 mg PO BID [facility] Stop: 12/19/17 08:59 Last Admin: 10/22/17 16:36 Dose: 25 mg Miscellaneous (Vancomycin Iv Per Pharmacy) 1 ea MC PRN [facility] Stop: 12/18/17 17:29 Multivitamins/Vitamin C (Theragran) 1 tab PO DAILY [facility] Stop: 12/20/17 08:59 Last Admin: 10/22/17 08:30 Dose: 1 tab Neomycin/Polymyxin/Bacitracin (Triple Antibiotic Ointment) 1 appl TP DAILY [facility] Stop: 12/20/17 08:59 Last Admin: 10/22/17 08:31 Dose: 1 appl Nitroglycerin (Nitrostat) 0.4 mg SL Q5MIN PRN PRN Reason: Chest Pain Stop: 12/19/17 07:44 Pantoprazole Sodium (Protonix) 40 mg PO DAILY [facility] Stop: 12/19/17 08:59 Last Admin: 10/22/17 08:30 Dose: 40 mg Thiamine HCl (Vitamin B1) 100 mg PO DAILY [facility] Stop: 12/19/17 08:59 Last Admin: 10/22/17 08:30 Dose: 100 mg Valsartan (Diovan) 80 mg PO BID [facility] Stop: 12/19/17 08:59 Last Admin: 10/22/17 16:36 Dose: 80 mg
[2017-10-22] MEDS: Acetaminophen 500 MG TAB PO PRN (22:31)
[2017-10-23 05:43] LABS: INR 1.16 (0.5-1.4); PROTHROMBIN TIME (TEST) 12.2 SECONDS (9.5-11.5)
[2017-10-23] MEDS: Multivitamin Tab PO SCH (08:35)
[2017-10-23] MEDS: Triple Antibiotic Ointment 28gm tube TP SCH (08:36)
[2017-10-23] MEDS: Pantoprazole 40 mg EC Tab PO SCH (08:36)
--- NOTE | 2017-10-23 08:40 | Diagnostic Imaging Report ---
CHEST X-RAY: AP view INDICATION: Cough, preop COMPARISON: 10/09/2017 FINDINGS: There is no focal consolidation or pleural effusions The heart is normal in size. Atherosclerosis is noted. Degenerative changes of the spine are noted. Postsurgical changes of the left axillary region are noted. IMPRESSION: No focal consolidation identified. Atherosclerotic vascular disease. Postsurgical changes.
[2017-10-23] MEDS: Hydrocodone/APAP 5mg/325mg Tab PO PRN ×2 (14:21→22:23)
--- NOTE | 2017-10-23 14:41 | Infectious Disease Prog Note ---
Infectious Disease Subjective - Review of Systems Service Date: 10/23/17 Subjective: Doing well. Infectious Disease Objective - Results Result Diagrams: 10/22/17 05:40 10/22/17 05:40 Recent Labs: Laboratory Last Values WBC 3.9 Th/cmm (4.8-10.8) L 10/22/17 05:40 RBC 3.13 Mil/cmm (3.80-5.80) L 10/22/17 05:40 Hgb 10.0 gm/dL (12-16) L 10/22/17 05:40 Hct 29.4 % (41.0-60) L D 10/22/17 05:40 MCV 94.0 fl (80-99) 10/22/17 05:40 MCH 32.0 pg (27.0-31.0) H 10/22/17 05:40 MCHC Differential 34.1 pg (28.0-36.0) 10/22/17 05:40 RDW 13.4 % (11.5-20.0) 10/22/17 05:40 Plt Count 62 Th/cmm (150-400) L 10/22/17 05:40 MPV 8.2 fl 10/22/17 05:40 Neutrophils % 57.1 % (40.0-80.0) 10/22/17 05:40 Band Neutrophils % 1 % (0-10) 10/20/17 04:45 Lymphocytes % 24.0 % (20.0-50.0) 10/22/17 05:40 Monocytes % 7.5 % (2.0-10.0) 10/22/17 05:40 Eosinophils % 11.3 % (0.0-5.0) H 10/22/17 05:40 Basophils % 0.1 % (0.0-2.0) 10/22/17 05:40 Neutrophils (Manual) 60 % (40-80) 10/20/17 04:45 Lymphocytes 28 % (20-50) 10/20/17 04:45 Monocytes 2 % (2-10) 10/20/17 04:45 Eosinophils 9 % (0-5) H 10/20/17 04:45 Basophils 0 % (0-3) 10/20/17 04:45 Platelet Estimate DECREASED PLATELETS (NORMAL) 10/20/17 04:45 ESR 66 mm/hr (0-20) H 10/20/17 04:45 PT 12.2 SECONDS (9.5-11.5) H 10/23/17 04:20 INR 1.16 (0.5-1.4) 10/23/17 04:20 PTT (Actin FS) 25.9 SECONDS (26.0-38.0) L 10/23/17 04:20 Sodium 135 mEq/L (136-145) L 10/22/17 05:40 Potassium 4.2 mEq/L (3.5-5.1) 10/22/17 05:40 Chloride 105 mEq/L (98-107) 10/22/17 05:40 Carbon Dioxide 23.7 mEq/L (21.0-31.0) 10/22/17 05:40 Anion Gap 10.5 (7.0-16.0) 10/22/17 05:40 BUN 23 mg/dL (7-25) 10/22/17 05:40 Creatinine 0.9 mg/dL (0.7-1.3) 10/22/17 05:40 Est GFR ( Amer) > 60.0 ml/min (>90) 10/22/17 05:40 Est GFR (Non-Af Amer) > 60.0 ml/min 10/22/17 05:40 BUN/Creatinine Ratio 25.6 10/22/17 05:40 Glucose 89 mg/dL (70-105) D 10/22/17 05:40 POC Glucose 147 MG/DL (70 - 105) H 10/19/17 17:36 Hemoglobin A1c % 5.9 % (4.0-6.0) 10/19/17 12:30 Calcium 8.8 mg/dL (8.6-10.3) 10/22/17 05:40 Total Bilirubin 1.2 mg/dL (0.3-1.0) H 10/19/17 12:30 AST 27 U/L (13-39) 10/19/17 12:30 ALT 13 U/L (7-52) 10/19/17 12:30 Alkaline Phosphatase 96 U/L (34-104) 10/19/17 12:30 C-Reactive Protein 0.2 mg/dL (0.0-0.9) 10/20/17 04:45 Total Protein 7.9 gm/dL (6.0-8.3) 10/19/17 12:30 Albumin 4.0 gm/dL (4.2-5.5) L 10/19/17 12:30 Globulin 3.9 gm/dL 10/19/17 12:30 Albumin/Globulin Ratio 1.0 (1.0-1.8) 10/19/17 12:30 Vancomycin Trough 13.3 ug/mL (5-10) H 10/21/17 09:35 - Physical Exam Vitals and I&O: Vital Signs Temp 98.8 F 10/23/17 11:37 Pulse 69 10/23/17 14:15 Resp 18 10/23/17 11:37 BP 115/78 10/23/17 14:15 Pulse Ox 98 10/23/17 11:37 Intake & Output 10/22/17 10/23/17 10/23/17 18:59 06:59 18:59 Intake Total 1080 450 Balance 1080 450 Weight (lbs) 82.871 kg 82.871 kg 82.604 kg Intake: Intake, IV Amount 250 Vancomycin HCl 1 gm In 250 Dextrose 5% 250 ml @ 165 mls/hr IV Q12H [facility] Rx#: [id number] Oral 1080 200 Other: # Voids 3 2 # Bowel Movements 0 0 Weight Source Estimated Bedscale Bedscale Active Medications: Current Medications Acetaminophen (Tylenol) 650 mg PO Q4H PRN PRN Reason: mild pain or fever >101 Stop: 12/18/17 20:59 Acetaminophen (Tylenol) 650 mg PO Q4HR PRN PRN Reason: MILD PAIN OR TEMP >101 Stop: 12/19/17 07:44 Acetaminophen (Tylenol Extra Strength) 1,000 mg PO Q4HR PRN PRN Reason: MODERATE PAIN Stop: 12/19/17 07:44 Last Admin: 10/22/17 22:31 Dose: 1,000 mg Acetaminophen/Hydrocodone Bitart (Becket 5mg/325mg) 1 tab PO Q8HR PRN PRN Reason: MOD. TO SEVERE PAIN Stop: 12/18/17 21:00 Last Admin: 10/23/17 14:21 Dose: 1 tab Acetaminophen/Hydrocodone Bitart (Becket 5mg/325mg) 1 tab PO Q8H PRN PRN Reason: Severe Pain Stop: 12/19/17 07:44 Chlorthalidone (Hygroton) 25 mg PO TID ORLY Stop: 12/19/17 13:59 Last Admin: 10/23/17 14:15 Dose: 25 mg Docusate Sodium (Colace) 100 mg PO DAILY ORLY Stop: 12/19/17 08:59 Last Admin: 10/23/17 08:31 Dose: Not Given Folic Acid (Folate) 1 mg PO DAILY ORLY Stop: 12/19/17 08:59 Last Admin: 10/23/17 08:35 Dose: Not Given Vancomycin HCl 1 gm/ Dextrose 250 mls @ 165 mls/hr IV Q12H ORLY Stop: 12/21/17 19:59 Last Admin: 10/23/17 08:01 Dose: 165 mls/hr Metoprolol Tartrate (Lopressor) 25 mg PO BID ORLY Stop: 12/19/17 08:59 Last Admin: 10/23/17 08:35 Dose: Not Given Miscellaneous (Vancomycin Iv Per Pharmacy) 1 ea MC PRN ORLY Stop: 12/18/17 17:29 Multivitamins/Vitamin C (Theragran) 1 tab PO DAILY ORLY Stop: 12/20/17 08:59 Last Admin: 10/23/17 08:35 Dose: Not Given Neomycin/Polymyxin/Bacitracin (Triple Antibiotic Ointment) 1 appl TP DAILY ORLY Stop: 12/20/17 08:59 Last Admin: 10/23/17 08:36 Dose: 1 appl Nitroglycerin (Nitrostat) 0.4 mg SL Q5MIN PRN PRN Reason: Chest Pain Stop: 12/19/17 07:44 Pantoprazole Sodium (Protonix) 40 mg PO DAILY ORLY Stop: 12/19/17 08:59 Last Admin: 10/23/17 08:36 Dose: Not Given Thiamine HCl (Vitamin B1) 100 mg PO DAILY ORLY Stop: 12/19/17 08:59 Last Admin: 10/23/17 08:36 Dose: Not Given Valsartan (Diovan) 80 mg PO BID ORLY Stop: 12/19/17 08:59 Last Admin: 10/23/17 08:36 Dose: Not Given Infectious Disease Assmt/Plan - Problem List Patient Problems: All Active Problems RIGHT #2 TOE PAIN AND SWELLING (Acute) - Assessment Assessment: 1. right foot 2nd toe wound,. osteomyelitis. 2, PAD. 3.DM2. - Plan Plan: Change antibiotic to Rocephin 2 g daily for 6 weeks.
[2017-10-23] MEDS: cefTRIAXone 2 GM in Sodium Chloride 0.9% 100 ML IV SCH (15:59)
--- NOTE | 2017-10-23 20:18 | Internal Medicine Prog Note ---
Internal Medicine Subjective - Subjective Service Date: 10/23/17 Patient seen and examined:: with staff Patient is:: awake Per staff patient has:: tolerating meds Internal Medicine Objective - Results Result Diagrams: 10/22/17 05:40 10/22/17 05:40 Recent Labs: Laboratory Last Values WBC 3.9 Th/cmm (4.8-10.8) L 10/22/17 05:40 RBC 3.13 Mil/cmm (3.80-5.80) L 10/22/17 05:40 Hgb 10.0 gm/dL (12-16) L 10/22/17 05:40 Hct 29.4 % (41.0-60) L D 10/22/17 05:40 MCV 94.0 fl (80-99) 10/22/17 05:40 MCH 32.0 pg (27.0-31.0) H 10/22/17 05:40 MCHC Differential 34.1 pg (28.0-36.0) 10/22/17 05:40 RDW 13.4 % (11.5-20.0) 10/22/17 05:40 Plt Count 62 Th/cmm (150-400) L 10/22/17 05:40 MPV 8.2 fl 10/22/17 05:40 Neutrophils % 57.1 % (40.0-80.0) 10/22/17 05:40 Band Neutrophils % 1 % (0-10) 10/20/17 04:45 Lymphocytes % 24.0 % (20.0-50.0) 10/22/17 05:40 Monocytes % 7.5 % (2.0-10.0) 10/22/17 05:40 Eosinophils % 11.3 % (0.0-5.0) H 10/22/17 05:40 Basophils % 0.1 % (0.0-2.0) 10/22/17 05:40 Neutrophils (Manual) 60 % (40-80) 10/20/17 04:45 Lymphocytes 28 % (20-50) 10/20/17 04:45 Monocytes 2 % (2-10) 10/20/17 04:45 Eosinophils 9 % (0-5) H 10/20/17 04:45 Basophils 0 % (0-3) 10/20/17 04:45 Platelet Estimate DECREASED PLATELETS (NORMAL) 10/20/17 04:45 ESR 66 mm/hr (0-20) H 10/20/17 04:45 PT 12.2 SECONDS (9.5-11.5) H 10/23/17 04:20 INR 1.16 (0.5-1.4) 10/23/17 04:20 PTT (Actin FS) 25.9 SECONDS (26.0-38.0) L 10/23/17 04:20 Sodium 135 mEq/L (136-145) L 10/22/17 05:40 Potassium 4.2 mEq/L (3.5-5.1) 10/22/17 05:40 Chloride 105 mEq/L (98-107) 10/22/17 05:40 Carbon Dioxide 23.7 mEq/L (21.0-31.0) 10/22/17 05:40 Anion Gap 10.5 (7.0-16.0) 10/22/17 05:40 BUN 23 mg/dL (7-25) 10/22/17 05:40 Creatinine 0.9 mg/dL (0.7-1.3) 10/22/17 05:40 Est GFR ( Amer) > 60.0 ml/min (>90) 10/22/17 05:40 Est GFR (Non-Af Amer) > 60.0 ml/min 10/22/17 05:40 BUN/Creatinine Ratio 25.6 10/22/17 05:40 Glucose 89 mg/dL (70-105) D 10/22/17 05:40 POC Glucose 147 MG/DL (70 - 105) H 10/19/17 17:36 Hemoglobin A1c % 5.9 % (4.0-6.0) 10/19/17 12:30 Calcium 8.8 mg/dL (8.6-10.3) 10/22/17 05:40 Total Bilirubin 1.2 mg/dL (0.3-1.0) H 10/19/17 12:30 AST 27 U/L (13-39) 10/19/17 12:30 ALT 13 U/L (7-52) 10/19/17 12:30 Alkaline Phosphatase 96 U/L (34-104) 10/19/17 12:30 C-Reactive Protein 0.2 mg/dL (0.0-0.9) 10/20/17 04:45 Total Protein 7.9 gm/dL (6.0-8.3) 10/19/17 12:30 Albumin 4.0 gm/dL (4.2-5.5) L 10/19/17 12:30 Globulin 3.9 gm/dL 10/19/17 12:30 Albumin/Globulin Ratio 1.0 (1.0-1.8) 10/19/17 12:30 Vancomycin Trough 13.3 ug/mL (5-10) H 10/21/17 09:35 - Physical Exam Vitals and I&O: Vital Signs Temp 98.8 F 10/23/17 11:37 Pulse 84 10/23/17 16:19 Resp 18 10/23/17 15:00 BP 97/52 10/23/17 16:19 Pulse Ox 98 10/23/17 11:37 Intake & Output 10/23/17 10/23/17 10/24/17 06:59 18:59 06:59 Intake Total 450 Balance 450 Weight (lbs) 82.871 kg 82.604 kg Intake: Intake, IV Amount 250 Vancomycin HCl 1 gm In 250 Dextrose 5% 250 ml @ 165 mls/hr IV Q12H [facility] Rx#: [id number] Oral 200 Other: # Voids 2 # Bowel Movements 0 Weight Source Bedscale Bedscale Active Medications: Current Medications Acetaminophen (Tylenol) 650 mg PO Q4H PRN PRN Reason: mild pain or fever >101 Stop: 12/18/17 20:59 Acetaminophen (Tylenol) 650 mg PO Q4HR PRN PRN Reason: MILD PAIN OR TEMP >101 Stop: 12/19/17 07:44 Acetaminophen (Tylenol Extra Strength) 1,000 mg PO Q4HR PRN PRN Reason: MODERATE PAIN Stop: 12/19/17 07:44 Last Admin: 10/22/17 22:31 Dose: 1,000 mg Acetaminophen/Hydrocodone Bitart ([place] 5mg/325mg) 1 tab PO Q8HR PRN PRN Reason: MOD. TO SEVERE PAIN Stop: 12/18/17 21:00 Last Admin: 10/23/17 14:21 Dose: 1 tab Acetaminophen/Hydrocodone Bitart ([place] 5mg/325mg) 1 tab PO Q8H PRN PRN Reason: Severe Pain Stop: 06/13/18 07:44 Chlorthalidone (Hygroton) 25 mg PO TID OR[facility] Stop: 12/19/17 13:59 Last Admin: 10/23/17 14:15 Dose: 25 mg Docusate Sodium (Colace) 100 mg PO DAILY [facility] Stop: 12/19/17 08:59 Last Admin: 10/23/17 08:31 Dose: Not Given Folic Acid (Folate) 1 mg PO DAILY [facility] Stop: 12/19/17 08:59 Last Admin: 10/23/17 08:35 Dose: Not Given Ceftriaxone Sodium 2 gm/ (Sodium Chloride) 100 mls @ 100 mls/hr IV Q24H [facility] Stop: 12/22/17 15:59 Last Admin: 10/23/17 15:59 Dose: 100 mls/hr Metoprolol Tartrate (Lopressor) 25 mg PO BID OR[facility] Stop: 12/19/17 08:59 Last Admin: 10/23/17 16:18 Dose: Not Given Multivitamins/Vitamin C (Theragran) 1 tab PO DAILY OR[facility] Stop: 12/20/17 08:59 Last Admin: 10/23/17 08:35 Dose: Not Given Neomycin/Polymyxin/Bacitracin (Triple Antibiotic Ointment) 1 appl TP DAILY ORLY Stop: 12/20/17 08:59 Last Admin: 10/23/17 08:36 Dose: 1 appl Nitroglycerin (Nitrostat) 0.4 mg SL Q5MIN PRN PRN Reason: Chest Pain Stop: 12/19/17 07:44 Pantoprazole Sodium (Protonix) 40 mg PO DAILY ORLY Stop: 12/19/17 08:59 Last Admin: 10/23/17 08:36 Dose: Not Given Thiamine HCl (Vitamin B1) 100 mg PO DAILY ORLY Stop: 12/19/17 08:59 Last Admin: 10/23/17 08:36 Dose: Not Given Valsartan (Diovan) 80 mg PO BID [facility] Stop: 12/19/17 08:59 Last Admin: 10/23/17 16:19 Dose: Not Given General: alert HEENT: NC/AT, PERRLA Neck: Supple Abdomen: soft, non-distended Internal Medicine Assmt/Plan - Assessment Assessment: 1. right foot 2nd toe wound,. osteomyelitis. 2, PAD. 3.DM2. - Plan Plan: cpm
[2017-10-24 08:00] LABS: % BASOPHILS 0.1 % (0.0-2.0); % MONOCYTES 7.2 % (2.0-10.0); EOSINOPHILE ABSOLUTE 0.4 Th/cmm (0.1-0.4); LYMPHOCYTE ABSOLUTE 0.7 Th/cmm (1.5-3.0); MEAN PLATELET VOLUME 8.1 fl; MONOCYTE ABSOLUTE 0.2 Th/cmm (0.3-1.0); RED CELL DISTRIBUTION WIDTH 13.4 % (11.5-20.0)
[2017-10-24 08:06] LABS: WHITE BLOOD COUNT 3.3 Th/cmm (4.8-10.8)
[2017-10-24 08:07] LABS: % EOSINOPHILS 12.6 % (0.0-5.0); % LYMPHOCYTES 20.9 % (20.0-50.0); % NEUTROPHILS 59.2 % (40.0-80.0); HEMATOCRIT 29.8 % (41.0-60); HEMOGLOBIN 10.2 gm/dL (12-16); MEAN CELL VOLUME 95.6 fl (80-99); MEAN CORPUSCULAR HEMOGLOBIN 32.6 pg (27.0-31.0); MEAN CORPUSCULAR HGB CONC 34.1 pg (28.0-36.0); PLATELET COUNT 64 Th/cmm (150-400); RED BLOOD COUNT 3.12 Mil/cmm (3.80-5.80)
[2017-10-24 08:21] LABS: ANION GAP 9.9 (7.0-16.0); BUN - UREA NITROGEN 23 mg/dL (7-25); CALCIUM SERUM 8.8 mg/dL (8.6-10.3); CARBON DIOXIDE 26.2 mEq/L (21.0-31.0); CHLORIDE 106 mEq/L (98-107); CREATININE - SERUM 0.8 mg/dL (0.7-1.3); GFR AFRICAN-AMERICAN > 60.0 ml/min (>90); GFR NON AFRICAN-AMERICAN > 60.0 ml/min; GLUCOSE 100 mg/dL (70-105); POTASSIUM SERUM 4.1 mEq/L (3.5-5.1); SODIUM SERUM 138 mEq/L (136-145)
[2017-10-24 08:27] LABS: INR 1.19 (0.5-1.4); PROTHROMBIN TIME (TEST) 12.5 SECONDS (9.5-11.5)
[2017-10-24] MEDS: Multivitamin Tab PO SCH (08:35)
[2017-10-24] MEDS: Triple Antibiotic Ointment 28gm tube TP SCH (08:35)
[2017-10-24] MEDS: Pantoprazole 40 mg EC Tab PO SCH (08:36)
[2017-10-24] MEDS ORDERED: Lidocaine 2% Gel 5 mL TP ONE (09:00)
[2017-10-24] MEDS ORDERED: fentaNYL Citrate 100 mcg/2mL Vial ONE ×2 (09:25→09:26)
[2017-10-24] MEDS ORDERED: Propofol **SURGERY USE ONLY** 20 ML IV ONE (09:26)
[2017-10-24] MEDS ORDERED: Probiotic Screen MC PRN (11:30)
--- NOTE | 2017-10-24 12:01 | Operative Report ---
DATE OF SURGERY: 10/24/2017 PREOPERATIVE DIAGNOSES: 1. Osteomyelitis, right second toe. 2. Diabetes mellitus. 3. Peripheral vascular disease. POSTOPERATIVE DIAGNOSES: 1. Osteomyelitis, right second toe. 2. Diabetes mellitus. 3. Peripheral vascular disease. OPERATION DONE: Disarticulation of right second toe at the MP joint. SURGEON: Dr. Mendoza ANESTHESIA: MAC. ANESTHESIOLOGIST: Dr. Holder. ESTIMATED BLOOD LOSS: None. DESCRIPTION OF PROCEDURE: The patient was given IV sedation. The right foot was prepped with Betadine and draped. Lidocaine 1% was used to infiltrate the base of the toe. An incision was made on the dorsal and plantar aspect of the base of the toe, which was extended all the way down to the MP joint which was then transected. Bleeders were electrocoagulated. The wound was reprepped with Betadine. Subcutaneous tissues were closed with 3-0 Vicryl and the skin was closed with subcuticular suture of 4-0 Vicryl. The patient tolerated the procedure well. [facility]# [id number]
[2017-10-24] MEDS: Lactobacillus Rhamnosus GG 15 Billion CFU CAP.SPRINK PO SCH (13:59)
[2017-10-24] MEDS: Hydrocodone/APAP 5mg/325mg Tab PO PRN ×2 (14:02→22:09)
--- NOTE | 2017-10-24 14:19 | General Progress Note ---
Subjective - Review of Systems Events since last encounter: rt second toe pain in no distress awak elert Objective - Results Result Diagrams: 10/24/17 07:50 10/24/17 07:50 Recent Labs: Laboratory Last Values WBC 3.3 Th/cmm (4.8-10.8) L 10/24/17 07:50 RBC 3.12 Mil/cmm (3.80-5.80) L 10/24/17 07:50 Hgb 10.2 gm/dL (12-16) L 10/24/17 07:50 Hct 29.8 % (41.0-60) L 10/24/17 07:50 MCV 95.6 fl (80-99) 10/24/17 07:50 MCH 32.6 pg (27.0-31.0) H 10/24/17 07:50 MCHC Differential 34.1 pg (28.0-36.0) 10/24/17 07:50 RDW 13.4 % (11.5-20.0) 10/24/17 07:50 Plt Count 64 Th/cmm (150-400) L 10/24/17 07:50 MPV 8.1 fl 10/24/17 07:50 Neutrophils % 59.2 % (40.0-80.0) 10/24/17 07:50 Band Neutrophils % 1 % (0-10) 10/20/17 04:45 Lymphocytes % 20.9 % (20.0-50.0) 10/24/17 07:50 Monocytes % 7.2 % (2.0-10.0) 10/24/17 07:50 Eosinophils % 12.6 % (0.0-5.0) H 10/24/17 07:50 Basophils % 0.1 % (0.0-2.0) 10/24/17 07:50 Neutrophils (Manual) 60 % (40-80) 10/20/17 04:45 Lymphocytes 28 % (20-50) 10/20/17 04:45 Monocytes 2 % (2-10) 10/20/17 04:45 Eosinophils 9 % (0-5) H 10/20/17 04:45 Basophils 0 % (0-3) 10/20/17 04:45 Platelet Estimate DECREASED PLATELETS (NORMAL) 10/20/17 04:45 ESR 66 mm/hr (0-20) H 10/20/17 04:45 PT 12.5 SECONDS (9.5-11.5) H 10/24/17 07:50 INR 1.19 (0.5-1.4) 10/24/17 07:50 PTT (Actin FS) 25.7 SECONDS (26.0-38.0) L 10/24/17 07:50 Sodium 138 mEq/L (136-145) 10/24/17 07:50 Potassium 4.1 mEq/L (3.5-5.1) 10/24/17 07:50 Chloride 106 mEq/L (98-107) 10/24/17 07:50 Carbon Dioxide 26.2 mEq/L (21.0-31.0) 10/24/17 07:50 Anion Gap 9.9 (7.0-16.0) 10/24/17 07:50 BUN 23 mg/dL (7-25) 10/24/17 07:50 Creatinine 0.8 mg/dL (0.7-1.3) 10/24/17 07:50 Est GFR ( Amer) > 60.0 ml/min (>90) 10/24/17 07:50 Est GFR (Non-Af Amer) > 60.0 ml/min 10/24/17 07:50 BUN/Creatinine Ratio 28.8 10/24/17 07:50 Glucose 100 mg/dL (70-105) 10/24/17 07:50 POC Glucose 103 MG/DL (70 - 105) 10/24/17 08:19 Hemoglobin A1c % 5.9 % (4.0-6.0) 10/19/17 12:30 Calcium 8.8 mg/dL (8.6-10.3) 10/24/17 07:50 Total Bilirubin 1.2 mg/dL (0.3-1.0) H 10/19/17 12:30 AST 27 U/L (13-39) 10/19/17 12:30 ALT 13 U/L (7-52) 10/19/17 12:30 Alkaline Phosphatase 96 U/L (34-104) 10/19/17 12:30 C-Reactive Protein 0.2 mg/dL (0.0-0.9) 10/20/17 04:45 Total Protein 7.9 gm/dL (6.0-8.3) 10/19/17 12:30 Albumin 4.0 gm/dL (4.2-5.5) L 10/19/17 12:30 Globulin 3.9 gm/dL 10/19/17 12:30 Albumin/Globulin Ratio 1.0 (1.0-1.8) 10/19/17 12:30 Vancomycin Trough 13.3 ug/mL (5-10) H 10/21/17 09:35 - Physical Exam Vitals and I&O: Vital Signs Temp 97.1 F 10/24/17 12:00 Pulse 77 10/24/17 14:00 Resp 18 10/24/17 14:00 BP 101/66 10/24/17 14:00 Pulse Ox 96 10/24/17 12:00 Intake & Output 10/23/17 10/24/17 10/24/17 18:59 06:59 18:59 Intake Total 100 Balance 100 Weight (lbs) 82.604 kg 82.599 kg Intake: Oral 100 Other: # Voids 2 # Bowel Movements 0 Stool Characteristics Soft Formed Weight Source Bedscale Bedscale Active Medications: Current Medications Acetaminophen (Tylenol) 650 mg PO Q4H PRN PRN Reason: mild pain or fever >101 Stop: 12/18/17 20:59 Acetaminophen (Tylenol) 650 mg PO Q4HR PRN PRN Reason: MILD PAIN OR TEMP >101 Stop: 12/19/17 07:44 Acetaminophen (Tylenol Extra Strength) 1,000 mg PO Q4HR PRN PRN Reason: MODERATE PAIN Stop: 12/19/17 07:44 Last Admin: 10/22/17 22:31 Dose: 1,000 mg Acetaminophen/Hydrocodone Bitart ([place] 5mg/325mg) 1 tab PO Q8H PRN PRN Reason: Severe Pain Stop: 12/19/17 07:44 Last Admin: 10/24/17 14:02 Dose: 1 tab Chlorthalidone (Hygroton) 25 mg PO TID [facility] Stop: 12/19/17 13:59 Last Admin: 10/24/17 14:00 Dose: Not Given Docusate Sodium (Colace) 100 mg PO DAILY [facility] Stop: 12/19/17 08:59 Last Admin: 10/24/17 08:35 Dose: Not Given Folic Acid (Folate) 1 mg PO DAILY [facility] Stop: 12/19/17 08:59 Last Admin: 10/24/17 08:35 Dose: Not Given Ceftriaxone Sodium 2 gm/ (Sodium Chloride) 100 mls @ 100 mls/hr IV Q24H [facility] Stop: 12/22/17 15:59 Last Admin: 10/23/17 15:59 Dose: 100 mls/hr Lactobacillus Rhamnosus (Culturelle 15b) 1 each PO DAILY ORLY Stop: 12/23/17 13:59 Last Admin: 10/24/17 13:59 Dose: 1 each Metoprolol Tartrate (Lopressor) 25 mg PO BID ORLY Stop: 12/19/17 08:59 Last Admin: 10/24/17 08:35 Dose: Not Given Miscellaneous (Probiotic Screen) 1 ea MC PRN PRN PRN Reason: PROTOCOL Stop: 12/23/17 11:29 Multivitamins/Vitamin C (Theragran) 1 tab PO DAILY ORLY Stop: 12/20/17 08:59 Last Admin: 10/24/17 08:35 Dose: Not Given Neomycin/Polymyxin/Bacitracin (Triple Antibiotic Ointment) 1 appl TP DAILY ORLY Stop: 12/20/17 08:59 Last Admin: 10/24/17 08:35 Dose: Not Given Nitroglycerin (Nitrostat) 0.4 mg SL Q5MIN PRN PRN Reason: Chest Pain Stop: 12/19/17 07:44 Pantoprazole Sodium (Protonix) 40 mg PO QDAC [facility] Stop: 12/19/17 08:59 Thiamine HCl (Vitamin B1) 100 mg PO DAILY ORLY Stop: 12/19/17 08:59 Last Admin: 10/24/17 08:36 Dose: Not Given Valsartan (Diovan) 80 mg PO BID OR[facility] Stop: 12/19/17 08:59 Last Admin: 10/24/17 08:36 Dose: Not Given - Procedures Procedures: Procedures Procedure Code Date AMPUTATION OF TOE 10170 10/19/17 DETACHMENT AT RIGHT 2ND TOE, COMPLETE, OPEN APPROACH [id number] 10/19/17 Assessment/Plan - Problem List Patient Problems: All Active Problems RIGHT #2 TOE PAIN AND SWELLING (Acute) - Assessment Assessment: 1. right foot 2nd toe wound,. osteomyelitis. 2, PAD. 3.DM2. - Plan Plan: cpm
[2017-10-24] MEDS: cefTRIAXone 2 GM in Sodium Chloride 0.9% 100 ML IV SCH (16:10)
--- NOTE | 2017-10-24 23:28 | Infectious Disease Prog Note ---
Infectious Disease Subjective - Review of Systems Service Date: 10/24/17 Events since last encounter: Amputationof the right 2nd toe was performed today. Subjective: Doing well. Infectious Disease Objective - Results Result Diagrams: 10/24/17 07:50 10/24/17 07:50 Recent Labs: Laboratory Last Values WBC 3.3 Th/cmm (4.8-10.8) L 10/24/17 07:50 RBC 3.12 Mil/cmm (3.80-5.80) L 10/24/17 07:50 Hgb 10.2 gm/dL (12-16) L 10/24/17 07:50 Hct 29.8 % (41.0-60) L 10/24/17 07:50 MCV 95.6 fl (80-99) 10/24/17 07:50 MCH 32.6 pg (27.0-31.0) H 10/24/17 07:50 MCHC Differential 34.1 pg (28.0-36.0) 10/24/17 07:50 RDW 13.4 % (11.5-20.0) 10/24/17 07:50 Plt Count 64 Th/cmm (150-400) L 10/24/17 07:50 MPV 8.1 fl 10/24/17 07:50 Neutrophils % 59.2 % (40.0-80.0) 10/24/17 07:50 Band Neutrophils % 1 % (0-10) 10/20/17 04:45 Lymphocytes % 20.9 % (20.0-50.0) 10/24/17 07:50 Monocytes % 7.2 % (2.0-10.0) 10/24/17 07:50 Eosinophils % 12.6 % (0.0-5.0) H 10/24/17 07:50 Basophils % 0.1 % (0.0-2.0) 10/24/17 07:50 Neutrophils (Manual) 60 % (40-80) 10/20/17 04:45 Lymphocytes 28 % (20-50) 10/20/17 04:45 Monocytes 2 % (2-10) 10/20/17 04:45 Eosinophils 9 % (0-5) H 10/20/17 04:45 Basophils 0 % (0-3) 10/20/17 04:45 Platelet Estimate DECREASED PLATELETS (NORMAL) 10/20/17 04:45 ESR 66 mm/hr (0-20) H 10/20/17 04:45 PT 12.5 SECONDS (9.5-11.5) H 10/24/17 07:50 INR 1.19 (0.5-1.4) 10/24/17 07:50 PTT (Actin FS) 25.7 SECONDS (26.0-38.0) L 10/24/17 07:50 Sodium 138 mEq/L (136-145) 10/24/17 07:50 Potassium 4.1 mEq/L (3.5-5.1) 10/24/17 07:50 Chloride 106 mEq/L (98-107) 10/24/17 07:50 Carbon Dioxide 26.2 mEq/L (21.0-31.0) 10/24/17 07:50 Anion Gap 9.9 (7.0-16.0) 04 07:50 BUN 23 mg/dL (7-25) 04 07:50 Creatinine 0.8 mg/dL (0.7-1.3) 04 07:50 Est GFR ( Amer) > 60.0 ml/min (>90) 04 07:50 Est GFR (Non-Af Amer) > 60.0 ml/min 10/24/17 07:50 BUN/Creatinine Ratio 28.8 10/24/17 07:50 Glucose 100 mg/dL (70-105) 04 07:50 POC Glucose 103 MG/DL (70 - 105) 10/24/17 08:19 Hemoglobin A1c % 5.9 % (4.0-6.0) 10/19/17 12:30 Calcium 8.8 mg/dL (8.6-10.3) 10/24/17 07:50 Total Bilirubin 1.2 mg/dL (0.3-1.0) H 10/19/17 12:30 AST 27 U/L (13-39) 10/19/17 12:30 ALT 13 U/L (7-52) 10/19/17 12:30 Alkaline Phosphatase 96 U/L (34-104) 10/19/17 12:30 C-Reactive Protein 0.2 mg/dL (0.0-0.9) 10/20/17 04:45 Total Protein 7.9 gm/dL (6.0-8.3) 10/19/17 12:30 Albumin 4.0 gm/dL (4.2-5.5) L 10/19/17 12:30 Globulin 3.9 gm/dL 10/19/17 12:30 Albumin/Globulin Ratio 1.0 (1.0-1.8) 10/19/17 12:30 Vancomycin Trough 13.3 ug/mL (5-10) H 10/21/17 09:35 - Physical Exam Vitals and I&O: Vital Signs Temp 98.9 F 10/24/17 20:00 Pulse 87 10/24/17 20:00 Resp 10 10/24/17 20:00 BP 102/61 10/24/17 20:00 Pulse Ox 97 10/24/17 20:00 Intake & Output 10/24/17 10/24/17 10/25/17 06:59 18:59 06:59 Intake Total 100 1200 Balance 100 1200 Weight (lbs) 82.599 kg 82.599 kg Intake: Oral 100 1200 Other: # Voids 2 2 # Bowel Movements 0 0 Stool Characteristics Soft Formed Weight Source Bedscale Bedscale Active Medications: Current Medications Acetaminophen (Tylenol) 650 mg PO Q4H PRN PRN Reason: mild pain or fever >101 Stop: 12/18/17 20:59 Acetaminophen (Tylenol) 650 mg PO Q4HR PRN PRN Reason: MILD PAIN OR TEMP >101 Stop: 12/19/17 07:44 Acetaminophen (Tylenol Extra Strength) 1,000 mg PO Q4HR PRN PRN Reason: MODERATE PAIN Stop: 12/19/17 07:44 Last Admin: 10/22/17 22:31 Dose: 1,000 mg Acetaminophen/Hydrocodone Bitart ([place] 5mg/325mg) 1 tab PO Q8H PRN PRN Reason: Severe Pain Stop: 12/19/17 07:44 Last Admin: 10/24/17 22:09 Dose: 1 tab Chlorthalidone (Hygroton) 25 mg PO TID [facility] Stop: 12/19/17 13:59 Last Admin: 10/24/17 20:48 Dose: Not Given Docusate Sodium (Colace) 100 mg PO DAILY [facility] Stop: 12/19/17 08:59 Last Admin: 10/24/17 08:35 Dose: Not Given Folic Acid (Folate) 1 mg PO DAILY [facility] Stop: 12/19/17 08:59 Last Admin: 10/24/17 08:35 Dose: Not Given Ceftriaxone Sodium 2 gm/ (Sodium Chloride) 100 mls @ 100 mls/hr IV Q24H [facility] Stop: 12/22/17 15:59 Last Admin: 10/24/17 16:10 Dose: 100 mls/hr Lactobacillus Rhamnosus (Culturelle 15b) 1 each PO DAILY [facility] Stop: 12/23/17 13:59 Last Admin: 10/24/17 13:59 Dose: 1 each Metoprolol Tartrate (Lopressor) 25 mg PO BID [facility] Stop: 12/19/17 08:59 Last Admin: 10/24/17 16:14 Dose: Not Given Miscellaneous (Probiotic Screen) 1 ea MC PRN PRN PRN Reason: PROTOCOL Stop: 12/23/17 11:29 Multivitamins/Vitamin C (Theragran) 1 tab PO DAILY [facility] Stop: 12/20/17 08:59 Last Admin: 10/24/17 08:35 Dose: Not Given Neomycin/Polymyxin/Bacitracin (Triple Antibiotic Ointment) 1 appl TP DAILY [facility] Stop: 12/20/17 08:59 Last Admin: 10/24/17 08:35 Dose: Not Given Nitroglycerin (Nitrostat) 0.4 mg SL Q5MIN PRN PRN Reason: Chest Pain Stop: 12/19/17 07:44 Pantoprazole Sodium (Protonix) 40 mg PO QDAC [facility] Stop: 12/19/17 08:59 Thiamine HCl (Vitamin B1) 100 mg PO DAILY [facility] Stop: 12/19/17 08:59 Last Admin: 10/24/17 08:36 Dose: Not Given Valsartan (Diovan) 80 mg PO BID [facility] Stop: 12/19/17 08:59 Last Admin: 10/24/17 16:14 Dose: Not Given General: no acute distress, well developed, well nourished HEENT: atraumatic, normocephalic, PERRLA, EOMI Neck: supple, no thyromegaly Cardiovascular: S1S2, regular Lungs: clear to auscultation bilaterally, clear to percussion Abdomen: soft, no tender, no distended Extremities: other (right foot dressing), no cyanosis, no clubbing, no edema Neurological: awake, alert, oriented - Procedures Procedures: Procedures Procedure Code Date AMPUTATION OF TOE 33653 10/19/17 DETACHMENT AT RIGHT 2ND TOE, COMPLETE, OPEN APPROACH [id number] 10/19/17 Infectious Disease Assmt/Plan - Problem List Patient Problems: All Active Problems RIGHT #2 TOE PAIN AND SWELLING (Acute) - Assessment Assessment: 1. right foot 2nd toe wound,. osteomyelitis. 2, PAD. 3.DM2. 4. s/p amputaion. - Plan Plan: on discharge change antibiotics to levaquin po for 7 days from now. Wound care. Nutritional Asmnt/Malnutr-PDOC - Dietary Evaluation Malnutrition Findings (Please click <Entered> for more info): Nutritional Asmnt/Malnutrition Start: 10/24/17 16: 04 Text: Status: Complete Freq: Document 10/24/17 16:05 LCHENG (Rec: 10/24/17 16:[facility] Nutritional Asmnt/Malnutrition Patient General Information Nutritional Screening Moderate Risk Diagnosis right foot cellulities r/o osteomyelitis Pertinent Medical Hx/Surgical Hx DM, HTN, 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 Pt reported good appetite, no question or concern about current diet. Pt had disarticulation of right 2nd toe today. Current Diet Order/ Nutrition Support low sodium Pertinent Medications colace, folate, culturelle, theragran, protonix, vitamin B1 Pertinent Labs 10/24 nutrition labs WNL Nutritional Hx/Data Height 1.78 m Height (Calculated Centimeters) 177.8 Current Weight (lbs) 82.554 kg Weight (Calculated Kilograms) 82.6 Weight (Calculated Grams) 95365.8 [place] Body Weight 166 Body Mass Index (BMI) 26.1 Weight Status Overweight GI Symptoms GI Symptoms None Last BM 10/21 Skin Integrity/Comment: surgery wound Current %PO Good (75-100%) Estimated Nutritional Goals Calories/Kcals/Kg 25-30 Kcals Calculated 5596-5141 Protein g/k-1.2 Protein Calculated 75-90 Fluid: ml 1875-2250ml (1ml/kcal) Nutritional Problem 1. Problem Problem increased protein needs Etiology increased metabolic demand for healing Signs/Symptoms: s/p surgery Malnutrition Alert Protein-Calorie Malnutrition N/A Is there a minimum of two criteria No selected? Query Text:Check all the applicable criteria. A minimum of two criteria are recommended for diagnosis of either severe or non-severe malnutrition. Intervention/Recommendation Comments 1. Continue with low sodium diet as ordered. 2. Monitor PO intake, wt, labs and skin integrity 3. F/U as moderate risk in 3-5 days, 10/27-10/29 Expected Outcomes/Goals Expected Outcomes/Goals 1. PO intake to meet at least 75% of nutritional needs. 2. Wt stability, skin to heal, labs to approach WNL.
[2017-10-25 06:29] LABS: % BASOPHILS 1.1 % (0.0-2.0); % LYMPHOCYTES 24.5 % (20.0-50.0); % NEUTROPHILS 53.4 % (40.0-80.0); EOSINOPHILE ABSOLUTE 0.4 Th/cmm (0.1-0.4); HEMATOCRIT 28.7 % (41.0-60); HEMOGLOBIN 9.8 gm/dL (12-16); LYMPHOCYTE ABSOLUTE 0.7 Th/cmm (1.5-3.0); MEAN CELL VOLUME 94.9 fl (80-99); MEAN CORPUSCULAR HEMOGLOBIN 32.4 pg (27.0-31.0); MEAN CORPUSCULAR HGB CONC 34.2 pg (28.0-36.0); MEAN PLATELET VOLUME 8.3 fl; MONOCYTE ABSOLUTE 0.2 Th/cmm (0.3-1.0); NEUTROPHILE ABSOLUTE 1.7 Th/cmm (1.8-8.0); PLATELET COUNT 67 Th/cmm (150-400); RED BLOOD COUNT 3.02 Mil/cmm (3.80-5.80); RED CELL DISTRIBUTION WIDTH 13.3 % (11.5-20.0)
[2017-10-25 06:46] LABS: ANION GAP 8.9 (7.0-16.0); BUN - UREA NITROGEN 25 mg/dL (7-25); CALCIUM SERUM 8.7 mg/dL (8.6-10.3); CHLORIDE 104 mEq/L (98-107); CREATININE - SERUM 0.8 mg/dL (0.7-1.3); GFR AFRICAN-AMERICAN > 60.0 ml/min (>90); GFR NON AFRICAN-AMERICAN > 60.0 ml/min; GLUCOSE 88 mg/dL (70-105); POTASSIUM SERUM 3.9 mEq/L (3.5-5.1); SODIUM SERUM 135 mEq/L (136-145)
[2017-10-25] MEDS: Triple Antibiotic Ointment 28gm tube TP SCH (08:25)
[2017-10-25] MEDS: Pantoprazole 40 mg EC Tab PO SCH (08:25)
[2017-10-25] MEDS: Multivitamin Tab PO SCH (08:25)
[2017-10-25] MEDS: Lactobacillus Rhamnosus GG 15 Billion CFU CAP.SPRINK PO SCH (08:27)
[2017-10-25] MEDS: Hydrocodone/APAP 5mg/325mg Tab PO PRN ×2 (08:27→18:38)
--- NOTE | 2017-10-25 08:56 | General Progress Note ---
Subjective - Review of Systems Service Date: 10/25/17 Events since last encounter: dressings dry, minimal pain Objective - Results Result Diagrams: 10/25/17 05:50 10/25/17 05:50 Recent Labs: Laboratory Last Values WBC 3.0 Th/cmm (4.8-10.8) L 10/25/17 05:50 RBC 3.02 Mil/cmm (3.80-5.80) L 10/25/17 05:50 Hgb 9.8 gm/dL (12-16) L 10/25/17 05:50 Hct 28.7 % (41.0-60) L 10/25/17 05:50 MCV 94.9 fl (80-99) 10/25/17 05:50 MCH 32.4 pg (27.0-31.0) H 10/25/17 05:50 MCHC Differential 34.2 pg (28.0-36.0) 10/25/17 05:50 RDW 13.3 % (11.5-20.0) 10/25/17 05:50 Plt Count 67 Th/cmm (150-400) L 10/25/17 05:50 MPV 8.3 fl 10/25/17 05:50 Neutrophils % 53.4 % (40.0-80.0) 10/25/17 05:50 Band Neutrophils % 1 % (0-10) 10/20/17 04:45 Lymphocytes % 24.5 % (20.0-50.0) 10/25/17 05:50 Monocytes % 8.0 % (2.0-10.0) 10/25/17 05:50 Eosinophils % 13.0 % (0.0-5.0) H 10/25/17 05:50 Basophils % 1.1 % (0.0-2.0) 10/25/17 05:50 Neutrophils (Manual) 60 % (40-80) 10/20/17 04:45 Lymphocytes 28 % (20-50) 10/20/17 04:45 Monocytes 2 % (2-10) 10/20/17 04:45 Eosinophils 9 % (0-5) H 10/20/17 04:45 Basophils 0 % (0-3) 10/20/17 04:45 Platelet Estimate DECREASED PLATELETS (NORMAL) 10/20/17 04:45 ESR 66 mm/hr (0-20) H 10/20/17 04:45 PT 12.5 SECONDS (9.5-11.5) H 10/24/17 07:50 INR 1.19 (0.5-1.4) 10/24/17 07:50 PTT (Actin FS) 25.7 SECONDS (26.0-38.0) L 10/24/17 07:50 Sodium 135 mEq/L (136-145) L 10/25/17 05:50 Potassium 3.9 mEq/L (3.5-5.1) 10/25/17 05:50 Chloride 104 mEq/L (98-107) 10/25/17 05:50 Carbon Dioxide 26.0 mEq/L (21.0-31.0) 10/25/17 05:50 Anion Gap 8.9 (7.0-16.0) 10/25/17 05:50 BUN 25 mg/dL (7-25) 10/25/17 05:50 Creatinine 0.8 mg/dL (0.7-1.3) 10/25/17 05:50 Est GFR ( Amer) > 60.0 ml/min (>90) 10/25/17 05:50 Est GFR (Non-Af Amer) > 60.0 ml/min 10/25/17 05:50 BUN/Creatinine Ratio 31.3 10/25/17 05:50 Glucose 88 mg/dL (70-105) 10/25/17 05:50 POC Glucose 103 MG/DL (70 - 105) 10/24/17 08:19 Hemoglobin A1c % 5.9 % (4.0-6.0) 10/19/17 12:30 Calcium 8.7 mg/dL (8.6-10.3) 10/25/17 05:50 Total Bilirubin 1.2 mg/dL (0.3-1.0) H 10/19/17 12:30 AST 27 U/L (13-39) 10/19/17 12:30 ALT 13 U/L (7-52) 10/19/17 12:30 Alkaline Phosphatase 96 U/L (34-104) 10/19/17 12:30 C-Reactive Protein 0.2 mg/dL (0.0-0.9) 10/20/17 04:45 Total Protein 7.9 gm/dL (6.0-8.3) 10/19/17 12:30 Albumin 4.0 gm/dL (4.2-5.5) L 10/19/17 12:30 Globulin 3.9 gm/dL 10/19/17 12:30 Albumin/Globulin Ratio 1.0 (1.0-1.8) 10/19/17 12:30 Vancomycin Trough 13.3 ug/mL (5-10) H 10/21/17 09:35 - Physical Exam Vitals and I&O: Vital Signs Temp 97.7 F 10/25/17 07:45 Pulse 82 10/25/17 08:25 Resp 18 10/25/17 07:45 BP 101/56 10/25/17 08:25 Pulse Ox 98 10/25/17 07:45 Intake & Output 10/24/17 10/25/17 10/25/17 18:59 06:59 18:59 Intake Total 1200 Output Total 400 Balance 1200 -400 Weight (lbs) 82.599 kg 85.185 kg Intake: Oral 1200 Output: Urine 400 Other: # Voids 2 # Bowel Movements 0 0 Stool Characteristics Soft Formed Weight Source Bedscale Bedscale Active Medications: Current Medications Acetaminophen (Tylenol) 650 mg PO Q4H PRN PRN Reason: mild pain or fever >101 Stop: 12/18/17 20:59 Acetaminophen (Tylenol) 650 mg PO Q4HR PRN PRN Reason: MILD PAIN OR TEMP >101 Stop: 12/19/17 07:44 Acetaminophen (Tylenol Extra Strength) 1,000 mg PO Q4HR PRN PRN Reason: MODERATE PAIN Stop: 12/19/17 07:44 Last Admin: 10/22/17 22:31 Dose: 1,000 mg Acetaminophen/Hydrocodone Bitart ([place] 5mg/325mg) 1 tab PO Q8H PRN PRN Reason: Severe Pain Stop: 12/19/17 07:44 Last Admin: 10/25/17 08:27 Dose: 1 tab Chlorthalidone (Hygroton) 25 mg PO TID [facility] Stop: 12/19/17 13:59 Last Admin: 10/25/17 08:26 Dose: Not Given Docusate Sodium (Colace) 100 mg PO DAILY [facility] Stop: 12/19/17 08:59 Last Admin: 10/25/17 08:25 Dose: 100 mg Folic Acid (Folate) 1 mg PO DAILY [facility] Stop: 12/19/17 08:59 Last Admin: 10/25/17 08:25 Dose: 1 mg Ceftriaxone Sodium 2 gm/ (Sodium Chloride) 100 mls @ 100 mls/hr IV Q24H [facility] Stop: 12/22/17 15:59 Last Admin: 10/24/17 16:10 Dose: 100 mls/hr Lactobacillus Rhamnosus (Culturelle 15b) 1 each PO DAILY [facility] Stop: 12/23/17 13:59 Last Admin: 10/25/17 08:27 Dose: 1 each Metoprolol Tartrate (Lopressor) 25 mg PO BID OR[facility] Stop: 12/19/17 08:59 Last Admin: 10/25/17 08:26 Dose: Not Given Miscellaneous (Probiotic Screen) 1 ea MC PRN PRN PRN Reason: PROTOCOL Stop: 12/23/17 11:29 Multivitamins/Vitamin C (Theragran) 1 tab PO DAILY [facility] Stop: 12/20/17 08:59 Last Admin: 10/25/17 08:25 Dose: 1 tab Neomycin/Polymyxin/Bacitracin (Triple Antibiotic Ointment) 1 appl TP DAILY [facility] Stop: 12/20/17 08:59 Last Admin: 10/25/17 08:25 Dose: 1 appl Nitroglycerin (Nitrostat) 0.4 mg SL Q5MIN PRN PRN Reason: Chest Pain Stop: 12/19/17 07:44 Pantoprazole Sodium (Protonix) 40 mg PO QDAC ORLY Stop: 12/19/17 08:59 Last Admin: 10/25/17 08:25 Dose: 40 mg Thiamine HCl (Vitamin B1) 100 mg PO DAILY [facility] Stop: 12/19/17 08:59 Last Admin: 10/25/17 08:25 Dose: 100 mg Valsartan (Diovan) 80 mg PO BID ORLY Stop: 12/19/17 08:59 Last Admin: 10/25/17 08:25 Dose: Not Given - Procedures Procedures: Procedures Procedure Code Date AMPUTATION OF TOE 85482 10/19/17 DETACHMENT AT RIGHT 2ND TOE, COMPLETE, OPEN APPROACH [id number] 10/19/17 Assessment/Plan - Problem List Patient Problems: All Active Problems RIGHT #2 TOE PAIN AND SWELLING (Acute) Nutritional Asmnt/Malnutr-PDOC - Dietary Evaluation Malnutrition Findings (Please click <Entered> for more info): Nutritional Asmnt/Malnutrition Start: 10/24/17 16: 04 Text: Status: Complete Freq: Document 10/24/17 16:05 OCHOA (Rec: 10/24/17 16:17 [email or web address]) Nutritional Asmnt/Malnutrition Patient General Information Nutritional Screening Moderate Risk Diagnosis right foot cellulities r/o osteomyelitis Pertinent Medical Hx/Surgical Hx DM, HTN, 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 Pt reported good appetite, no question or concern about current diet. Pt had disarticulation of right 2nd toe today. Current Diet Order/ Nutrition Support low sodium Pertinent Medications colace, folate, culturelle, theragran, protonix, vitamin B1 Pertinent Labs 10/24 nutrition labs WNL Nutritional Hx/Data Height 1.78 m Height (Calculated Centimeters) 177.8 Current Weight (lbs) 82.554 kg Weight (Calculated Kilograms) 82.6 Weight (Calculated Grams) 90095.8 [place] Body Weight 166 Body Mass Index (BMI) 26.1 Weight Status Overweight GI Symptoms GI Symptoms None Last BM 10/21 Skin Integrity/Comment: surgery wound Current %PO Good (75-100%) Estimated Nutritional Goals Calories/Kcals/Kg 25-30 Kcals Calculated 2592-2339 Protein g/k-1.2 Protein Calculated 75-90 Fluid: ml 1875-2250ml (1ml/kcal) Nutritional Problem 1. Problem Problem increased protein needs Etiology increased metabolic demand for healing Signs/Symptoms: s/p surgery Malnutrition Alert Protein-Calorie Malnutrition N/A Is there a minimum of two criteria No selected? Query Text:Check all the applicable criteria. A minimum of two criteria are recommended for diagnosis of either severe or non-severe malnutrition. Intervention/Recommendation Comments 1. Continue with low sodium diet as ordered. 2. Monitor PO intake, wt, labs and skin integrity 3. F/U as moderate risk in 3-5 days, 10/27-10/29 Expected Outcomes/Goals Expected Outcomes/Goals 1. PO intake to meet at least 75% of nutritional needs. 2. Wt stability, skin to heal, labs to approach WNL.
--- NOTE | 2017-10-25 09:46 | General Progress Note ---
Subjective - Review of Systems Events since last encounter: in no distress pain controlled Objective - Results Result Diagrams: 10/25/17 05:50 10/25/17 05:50 Recent Labs: Laboratory Last Values WBC 3.0 Th/cmm (4.8-10.8) L 10/25/17 05:50 RBC 3.02 Mil/cmm (3.80-5.80) L 10/25/17 05:50 Hgb 9.8 gm/dL (12-16) L 10/25/17 05:50 Hct 28.7 % (41.0-60) L 10/25/17 05:50 MCV 94.9 fl (80-99) 10/25/17 05:50 MCH 32.4 pg (27.0-31.0) H 10/25/17 05:50 MCHC Differential 34.2 pg (28.0-36.0) 10/25/17 05:50 RDW 13.3 % (11.5-20.0) 10/25/17 05:50 Plt Count 67 Th/cmm (150-400) L 10/25/17 05:50 MPV 8.3 fl 10/25/17 05:50 Neutrophils % 53.4 % (40.0-80.0) 10/25/17 05:50 Band Neutrophils % 1 % (0-10) 10/20/17 04:45 Lymphocytes % 24.5 % (20.0-50.0) 10/25/17 05:50 Monocytes % 8.0 % (2.0-10.0) 10/25/17 05:50 Eosinophils % 13.0 % (0.0-5.0) H 10/25/17 05:50 Basophils % 1.1 % (0.0-2.0) 10/25/17 05:50 Neutrophils (Manual) 60 % (40-80) 10/20/17 04:45 Lymphocytes 28 % (20-50) 10/20/17 04:45 Monocytes 2 % (2-10) 10/20/17 04:45 Eosinophils 9 % (0-5) H 10/20/17 04:45 Basophils 0 % (0-3) 10/20/17 04:45 Platelet Estimate DECREASED PLATELETS (NORMAL) 10/20/17 04:45 ESR 66 mm/hr (0-20) H 10/20/17 04:45 PT 12.5 SECONDS (9.5-11.5) H 10/24/17 07:50 INR 1.19 (0.5-1.4) 10/24/17 07:50 PTT (Actin FS) 25.7 SECONDS (26.0-38.0) L 10/24/17 07:50 Sodium 135 mEq/L (136-145) L 10/25/17 05:50 Potassium 3.9 mEq/L (3.5-5.1) 10/25/17 05:50 Chloride 104 mEq/L (98-107) 10/25/17 05:50 Carbon Dioxide 26.0 mEq/L (21.0-31.0) 10/25/17 05:50 Anion Gap 8.9 (7.0-16.0) 10/25/17 05:50 BUN 25 mg/dL (7-25) 10/25/17 05:50 Creatinine 0.8 mg/dL (0.7-1.3) 10/25/17 05:50 Est GFR ( Amer) > 60.0 ml/min (>90) 10/25/17 05:50 Est GFR (Non-Af Amer) > 60.0 ml/min 10/25/17 05:50 BUN/Creatinine Ratio 31.3 10/25/17 05:50 Glucose 88 mg/dL (70-105) 10/25/17 05:50 POC Glucose 103 MG/DL (70 - 105) 10/24/17 08:19 Hemoglobin A1c % 5.9 % (4.0-6.0) 10/19/17 12:30 Calcium 8.7 mg/dL (8.6-10.3) 10/25/17 05:50 Total Bilirubin 1.2 mg/dL (0.3-1.0) H 10/19/17 12:30 AST 27 U/L (13-39) 10/19/17 12:30 ALT 13 U/L (7-52) 10/19/17 12:30 Alkaline Phosphatase 96 U/L (34-104) 10/19/17 12:30 C-Reactive Protein 0.2 mg/dL (0.0-0.9) 10/20/17 04:45 Total Protein 7.9 gm/dL (6.0-8.3) 10/19/17 12:30 Albumin 4.0 gm/dL (4.2-5.5) L 10/19/17 12:30 Globulin 3.9 gm/dL 10/19/17 12:30 Albumin/Globulin Ratio 1.0 (1.0-1.8) 10/19/17 12:30 Vancomycin Trough 13.3 ug/mL (5-10) H 10/21/17 09:35 - Physical Exam Vitals and I&O: Vital Signs Temp 97.7 F 10/25/17 07:45 Pulse 82 10/25/17 08:25 Resp 18 10/25/17 07:45 BP 101/56 10/25/17 08:25 Pulse Ox 98 10/25/17 07:45 Intake & Output 10/24/17 10/25/17 10/25/17 18:59 06:59 18:59 Intake Total 1200 Output Total 400 Balance 1200 -400 Weight (lbs) 82.599 kg 85.185 kg Intake: Oral 1200 Output: Urine 400 Other: # Voids 2 # Bowel Movements 0 0 Stool Characteristics Soft Formed Weight Source Bedscale Bedscale Active Medications: Current Medications Acetaminophen (Tylenol) 650 mg PO Q4H PRN PRN Reason: mild pain or fever >101 Stop: 12/18/17 20:59 Acetaminophen (Tylenol) 650 mg PO Q4HR PRN PRN Reason: MILD PAIN OR TEMP >101 Stop: 12/19/17 07:44 Acetaminophen (Tylenol Extra Strength) 1,000 mg PO Q4HR PRN PRN Reason: MODERATE PAIN Stop: 12/19/17 07:44 Last Admin: 10/22/17 22:31 Dose: 1,000 mg Acetaminophen/Hydrocodone Bitart ([place] 5mg/325mg) 1 tab PO Q8H PRN PRN Reason: Severe Pain Stop: 12/19/17 07:44 Last Admin: 10/25/17 08:27 Dose: 1 tab Chlorthalidone (Hygroton) 25 mg PO TID [facility] Stop: 12/19/17 13:59 Last Admin: 10/25/17 08:26 Dose: Not Given Docusate Sodium (Colace) 100 mg PO DAILY [facility] Stop: 12/19/17 08:59 Last Admin: 10/25/17 08:25 Dose: 100 mg Folic Acid (Folate) 1 mg PO DAILY [facility] Stop: 12/19/17 08:59 Last Admin: 10/25/17 08:25 Dose: 1 mg Ceftriaxone Sodium 2 gm/ (Sodium Chloride) 100 mls @ 100 mls/hr IV Q24H [facility] Stop: 12/22/17 15:59 Last Admin: 10/24/17 16:10 Dose: 100 mls/hr Lactobacillus Rhamnosus (Culturelle 15b) 1 each PO DAILY [facility] Stop: 12/23/17 13:59 Last Admin: 10/25/17 08:27 Dose: 1 each Metoprolol Tartrate (Lopressor) 25 mg PO BID [facility] Stop: 12/19/17 08:59 Last Admin: 10/25/17 08:26 Dose: Not Given Miscellaneous (Probiotic Screen) 1 ea PRN PRN PRN Reason: PROTOCOL Stop: 12/23/17 11:29 Multivitamins/Vitamin C (Theragran) 1 tab PO DAILY [facility] Stop: 12/20/17 08:59 Last Admin: 10/25/17 08:25 Dose: 1 tab Neomycin/Polymyxin/Bacitracin (Triple Antibiotic Ointment) 1 appl TP DAILY [facility] Stop: 12/20/17 08:59 Last Admin: 10/25/17 08:25 Dose: 1 appl Nitroglycerin (Nitrostat) 0.4 mg SL Q5MIN PRN PRN Reason: Chest Pain Stop: 12/19/17 07:44 Pantoprazole Sodium (Protonix) 40 mg PO QDAC ORLY Stop: 12/19/17 08:59 Last Admin: 10/25/17 08:25 Dose: 40 mg Thiamine HCl (Vitamin B1) 100 mg PO DAILY [facility] Stop: 12/19/17 08:59 Last Admin: 10/25/17 08:25 Dose: 100 mg Valsartan (Diovan) 80 mg PO BID ORLY Stop: 12/19/17 08:59 Last Admin: 10/25/17 08:25 Dose: Not Given - Procedures Procedures: Procedures Procedure Code Date AMPUTATION OF TOE 87084 10/19/17 DETACHMENT AT RIGHT 2ND TOE, COMPLETE, OPEN APPROACH [id number] 10/19/17 Assessment/Plan - Problem List Patient Problems: All Active Problems RIGHT #2 TOE PAIN AND SWELLING (Acute) - Assessment Assessment: 1. right foot 2nd toe wound,. osteomyelitis. 2, PAD. 3.DM2. - Plan Plan: cpm Nutritional Asmnt/Malnutr-PDOC - Dietary Evaluation Malnutrition Findings (Please click <Entered> for more info): Nutritional Asmnt/Malnutrition Start: 10/24/17 16: 04 Text: Status: Complete Freq: Document 10/24/17 16:05 LCHENG (Rec: 10/24/17 16:17 [email or web address]) Nutritional Asmnt/Malnutrition Patient General Information Nutritional Screening Moderate Risk Diagnosis right foot cellulities r/o osteomyelitis Pertinent Medical Hx/Surgical Hx DM, HTN, 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 Pt reported good appetite, no question or concern about current diet. Pt had disarticulation of right 2nd toe today. Current Diet Order/ Nutrition Support low sodium Pertinent Medications colace, folate, culturelle, theragran, protonix, vitamin B1 Pertinent Labs 10/24 nutrition labs WNL Nutritional Hx/Data Height 1.78 m Height (Calculated Centimeters) 177.8 Current Weight (lbs) 82.554 kg Weight (Calculated Kilograms) 82.6 Weight (Calculated Grams) 66981.8 [place] Body Weight 166 Body Mass Index (BMI) 26.1 Weight Status Overweight GI Symptoms GI Symptoms None Last BM 10/21 Skin Integrity/Comment: surgery wound Current %PO Good (75-100%) Estimated Nutritional Goals Calories/Kcals/Kg 25-30 Kcals Calculated 2577-6909 Protein g/k-1.2 Protein Calculated 75-90 Fluid: ml 1875-2250ml (1ml/kcal) Nutritional Problem 1. Problem Problem increased protein needs Etiology increased metabolic demand for healing Signs/Symptoms: s/p surgery Malnutrition Alert Protein-Calorie Malnutrition N/A Is there a minimum of two criteria No selected? Query Text:Check all the applicable criteria. A minimum of two criteria are recommended for diagnosis of either severe or non-severe malnutrition. Intervention/Recommendation Comments 1. Continue with low sodium diet as ordered. 2. Monitor PO intake, wt, labs and skin integrity 3. F/U as moderate risk in 3-5 days, 10/27-10/29 Expected Outcomes/Goals Expected Outcomes/Goals 1. PO intake to meet at least 75% of nutritional needs. 2. Wt stability, skin to heal, labs to approach WNL.
--- NOTE | 2017-10-25 13:38 | Infectious Disease Prog Note ---
Infectious Disease Subjective - Review of Systems Service Date: 10/25/17 Subjective: Doing well. Infectious Disease Objective - Results Result Diagrams: 10/25/17 05:50 10/25/17 05:50 Recent Labs: Laboratory Last Values WBC 3.0 Th/cmm (4.8-10.8) L 10/25/17 05:50 RBC 3.02 Mil/cmm (3.80-5.80) L 10/25/17 05:50 Hgb 9.8 gm/dL (12-16) L 10/25/17 05:50 Hct 28.7 % (41.0-60) L 10/25/17 05:50 MCV 94.9 fl (80-99) 10/25/17 05:50 MCH 32.4 pg (27.0-31.0) H 10/25/17 05:50 MCHC Differential 34.2 pg (28.0-36.0) 10/25/17 05:50 RDW 13.3 % (11.5-20.0) 10/25/17 05:50 Plt Count 67 Th/cmm (150-400) L 10/25/17 05:50 MPV 8.3 fl 10/25/17 05:50 Neutrophils % 53.4 % (40.0-80.0) 10/25/17 05:50 Band Neutrophils % 1 % (0-10) 10/20/17 04:45 Lymphocytes % 24.5 % (20.0-50.0) 10/25/17 05:50 Monocytes % 8.0 % (2.0-10.0) 10/25/17 05:50 Eosinophils % 13.0 % (0.0-5.0) H 10/25/17 05:50 Basophils % 1.1 % (0.0-2.0) 10/25/17 05:50 Neutrophils (Manual) 60 % (40-80) 10/20/17 04:45 Lymphocytes 28 % (20-50) 10/20/17 04:45 Monocytes 2 % (2-10) 10/20/17 04:45 Eosinophils 9 % (0-5) H 10/20/17 04:45 Basophils 0 % (0-3) 10/20/17 04:45 Platelet Estimate DECREASED PLATELETS (NORMAL) 10/20/17 04:45 ESR 66 mm/hr (0-20) H 10/20/17 04:45 PT 12.5 SECONDS (9.5-11.5) H 10/24/17 07:50 INR 1.19 (0.5-1.4) 10/24/17 07:50 PTT (Actin FS) 25.7 SECONDS (26.0-38.0) L 10/24/17 07:50 Sodium 135 mEq/L (136-145) L 10/25/17 05:50 Potassium 3.9 mEq/L (3.5-5.1) 10/25/17 05:50 Chloride 104 mEq/L (98-107) 10/25/17 05:50 Carbon Dioxide 26.0 mEq/L (21.0-31.0) 10/25/17 05:50 Anion Gap 8.9 (7.0-16.0) 10/25/17 05:50 BUN 25 mg/dL (7-25) 10/25/17 05:50 Creatinine 0.8 mg/dL (0.7-1.3) 10/25/17 05:50 Est GFR ( Amer) > 60.0 ml/min (>90) 10/25/17 05:50 Est GFR (Non-Af Amer) > 60.0 ml/min 10/25/17 05:50 BUN/Creatinine Ratio 31.3 10/25/17 05:50 Glucose 88 mg/dL (70-105) 10/25/17 05:50 POC Glucose 103 MG/DL (70 - 105) 10/24/17 08:19 Hemoglobin A1c % 5.9 % (4.0-6.0) 10/19/17 12:30 Calcium 8.7 mg/dL (8.6-10.3) 10/25/17 05:50 Total Bilirubin 1.2 mg/dL (0.3-1.0) H 10/19/17 12:30 AST 27 U/L (13-39) 10/19/17 12:30 ALT 13 U/L (7-52) 10/19/17 12:30 Alkaline Phosphatase 96 U/L (34-104) 10/19/17 12:30 C-Reactive Protein 0.2 mg/dL (0.0-0.9) 10/20/17 04:45 Total Protein 7.9 gm/dL (6.0-8.3) 10/19/17 12:30 Albumin 4.0 gm/dL (4.2-5.5) L 10/19/17 12:30 Globulin 3.9 gm/dL 10/19/17 12:30 Albumin/Globulin Ratio 1.0 (1.0-1.8) 10/19/17 12:30 Vancomycin Trough 13.3 ug/mL (5-10) H 10/21/17 09:35 - Physical Exam Vitals and I&O: Vital Signs Temp 98.2 F 10/25/17 12:18 Pulse 101 10/25/17 12:18 Resp 18 10/25/17 12:18 BP 119/75 10/25/17 12:18 Pulse Ox 97 10/25/17 12:18 Intake & Output 10/24/17 10/25/17 10/25/17 18:59 06:59 18:59 Intake Total 1200 Output Total 400 Balance 1200 -400 Weight (lbs) 82.599 kg 85.185 kg Intake: Oral 1200 Output: Urine 400 Other: # Voids 2 # Bowel Movements 0 0 Stool Characteristics Soft Soft Formed Formed Weight Source Bedscale Bedscale Active Medications: Current Medications Acetaminophen (Tylenol) 650 mg PO Q4H PRN PRN Reason: mild pain or fever >101 Stop: 12/18/17 20:59 Acetaminophen (Tylenol) 650 mg PO Q4HR PRN PRN Reason: MILD PAIN OR TEMP >101 Stop: 12/19/17 07:44 Acetaminophen (Tylenol Extra Strength) 1,000 mg PO Q4HR PRN PRN Reason: MODERATE PAIN Stop: 12/19/17 07:44 Last Admin: 10/22/17 22:31 Dose: 1,000 mg Acetaminophen/Hydrocodone Bitart ([place] 5mg/325mg) 1 tab PO Q8H PRN PRN Reason: Severe Pain Stop: 12/19/17 07:44 Last Admin: 10/25/17 08:27 Dose: 1 tab Chlorthalidone (Hygroton) 25 mg PO TID [facility] Stop: 12/19/17 13:59 Last Admin: 10/25/17 08:26 Dose: Not Given Docusate Sodium (Colace) 100 mg PO DAILY [facility] Stop: 12/19/17 08:59 Last Admin: 10/25/17 08:25 Dose: 100 mg Folic Acid (Folate) 1 mg PO DAILY [facility] Stop: 12/19/17 08:59 Last Admin: 10/25/17 08:25 Dose: 1 mg Ceftriaxone Sodium 2 gm/ (Sodium Chloride) 100 mls @ 100 mls/hr IV Q24H [facility] Stop: 12/22/17 15:59 Last Admin: 10/24/17 16:10 Dose: 100 mls/hr Lactobacillus Rhamnosus (Culturelle 15b) 1 each PO DAILY [facility] Stop: 12/23/17 13:59 Last Admin: 10/25/17 08:27 Dose: 1 each Metoprolol Tartrate (Lopressor) 25 mg PO BID [facility] Stop: 12/19/17 08:59 Last Admin: 10/25/17 08:26 Dose: Not Given Miscellaneous (Probiotic Screen) 1 ea MC PRN PRN PRN Reason: PROTOCOL Stop: 12/23/17 11:29 Multivitamins/Vitamin C (Theragran) 1 tab PO DAILY [facility] Stop: 12/20/17 08:59 Last Admin: 10/25/17 08:25 Dose: 1 tab Neomycin/Polymyxin/Bacitracin (Triple Antibiotic Ointment) 1 appl TP DAILY [facility] Stop: 12/20/17 08:59 Last Admin: 10/25/17 08:25 Dose: 1 appl Nitroglycerin (Nitrostat) 0.4 mg SL Q5MIN PRN PRN Reason: Chest Pain Stop: 12/19/17 07:44 Pantoprazole Sodium (Protonix) 40 mg PO QDAC ORLY Stop: 12/19/17 08:59 Last Admin: 10/25/17 08:25 Dose: 40 mg Thiamine HCl (Vitamin B1) 100 mg PO DAILY [facility] Stop: 12/19/17 08:59 Last Admin: 10/25/17 08:25 Dose: 100 mg Valsartan (Diovan) 80 mg PO BID [facility] Stop: 12/19/17 08:59 Last Admin: 10/25/17 08:25 Dose: Not Given General: no acute distress, well developed, well nourished HEENT: atraumatic, normocephalic, PERRLA Neck: supple, no thyromegaly Cardiovascular: S1S2, regular, no systolic murmur Lungs: clear to auscultation bilaterally, clear to percussion Abdomen: soft, bowel sounds (normoactive), no tender, no distended, no hepatomegaly Extremities: other (right foot wound with a dressing.), no cyanosis, no clubbing , no edema Neurological: awake Skin: intact - Procedures Procedures: Procedures Procedure Code Date AMPUTATION OF TOE 59654 10/19/17 DETACHMENT AT RIGHT 2ND TOE, COMPLETE, OPEN APPROACH [id number] 10/19/17 Infectious Disease Assmt/Plan - Problem List Patient Problems: All Active Problems RIGHT #2 TOE PAIN AND SWELLING (Acute) - Assessment Assessment: 1. right foot 2nd toe wound,. osteomyelitis. 2, PAD. 3.DM2. 4. s/p amputaion. - Plan Plan: on discharge change antibiotics to levaquin po for 6 days from now. Wound care. Nutritional Asmnt/Malnutr-PDOC - Dietary Evaluation Malnutrition Findings (Please click <Entered> for more info): Nutritional Asmnt/Malnutrition Start: 10/24/17 16: 04 Text: Status: Complete Freq: Document 10/24/17 16:05 FANI (Rec: 10/24/17 16:17 [facility]) Nutritional Asmnt/Malnutrition Patient General Information Nutritional Screening Moderate Risk Diagnosis right foot cellulities r/o osteomyelitis Pertinent Medical Hx/Surgical Hx DM, HTN, 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 Pt reported good appetite, no question or concern about current diet. Pt had disarticulation of right 2nd toe today. Current Diet Order/ Nutrition Support low sodium Pertinent Medications colace, folate, culturelle, theragran, protonix, vitamin B1 Pertinent Labs 10/24 nutrition labs WNL Nutritional Hx/Data Height 1.78 m Height (Calculated Centimeters) 177.8 Current Weight (lbs) 82.554 kg Weight (Calculated Kilograms) 82.6 Weight (Calculated Grams) 20793.8 [place] Body Weight 166 Body Mass Index (BMI) 26.1 Weight Status Overweight GI Symptoms GI Symptoms None Last BM 10/21 Skin Integrity/Comment: surgery wound Current %PO Good (75-100%) Estimated Nutritional Goals Calories/Kcals/Kg 25-30 Kcals Calculated 0541-5740 Protein g/k-1.2 Protein Calculated 75-90 Fluid: ml 1875-2250ml (1ml/kcal) Nutritional Problem 1. Problem Problem increased protein needs Etiology increased metabolic demand for healing Signs/Symptoms: s/p surgery Malnutrition Alert Protein-Calorie Malnutrition N/A Is there a minimum of two criteria No selected? Query Text:Check all the applicable criteria. A minimum of two criteria are recommended for diagnosis of either severe or non-severe malnutrition. Intervention/Recommendation Comments 1. Continue with low sodium diet as ordered. 2. Monitor PO intake, wt, labs and skin integrity 3. F/U as moderate risk in 3-5 days, 10/27-10/29 Expected Outcomes/Goals Expected Outcomes/Goals 1. PO intake to meet at least 75% of nutritional needs. 2. Wt stability, skin to heal, labs to approach WNL.
--- NOTE | 2017-10-25 15:27 | Pathology Report ---
[id number] Collection Date: 10/24/2017 Surgeon: Dr. Freda Mendoza Specimen Description: Right second toe amputation Gross Description: Received in formalin is a 5.5 x 1.5 x 1.3 cm amputation of the right second toe with an area of ulceration and degeneration seen near the distal portion of the toe adjacent to the nail. Sectioning shows cutaneous ulceration with extension into the underlying bone. [employer] sections are submitted in two cassettes labeled A1 and A2 with cassette A1 showing the cutaneous ulcer and cassette A2 showing the bone. Microscopic Description: The histologic sections show skin and underlying soft tissue with areas of acute suppurative inflammation consisting of neutrophils, consistent with cellulitis. The inflammatory changes extend into the underlying bone, which is consistent with osteomyelitis. Diagnosis: Cutaneous ulceration and suppurative inflammation extending to the underlying bone, consistent with cellulitis and osteomyelitis (right second toe amputation). [facility]# [id number]
[2017-10-25] MEDS: cefTRIAXone 2 GM in Sodium Chloride 0.9% 100 ML IV SCH (15:28)
[2017-10-25] MEDS: Acetaminophen 500 MG TAB PO PRN (15:30)
[2017-10-26] MEDS: Acetaminophen 500 MG TAB PO PRN (00:21)
[2017-10-26] MEDS: Pantoprazole 40 mg EC Tab PO SCH (08:28)
[2017-10-26] MEDS: Hydrocodone/APAP 5mg/325mg Tab PO PRN ×2 (08:29→20:01)
[2017-10-26] MEDS: Lactobacillus Rhamnosus GG 15 Billion CFU CAP.SPRINK PO SCH (08:32)
[2017-10-26] MEDS: Multivitamin Tab PO SCH (08:32)
[2017-10-26] MEDS: Triple Antibiotic Ointment 28gm tube TP SCH (08:34)
--- NOTE | 2017-10-26 11:36 | Infectious Disease Prog Note ---
Infectious Disease Subjective - Review of Systems Service Date: 10/26/17 Subjective: Doing well. Infectious Disease Objective - Results Result Diagrams: 10/25/17 05:50 10/25/17 05:50 Recent Labs: Laboratory Last Values WBC 3.0 Th/cmm (4.8-10.8) L 10/25/17 05:50 RBC 3.02 Mil/cmm (3.80-5.80) L 10/25/17 05:50 Hgb 9.8 gm/dL (12-16) L 10/25/17 05:50 Hct 28.7 % (41.0-60) L 10/25/17 05:50 MCV 94.9 fl (80-99) 10/25/17 05:50 MCH 32.4 pg (27.0-31.0) H 10/25/17 05:50 MCHC Differential 34.2 pg (28.0-36.0) 10/25/17 05:50 RDW 13.3 % (11.5-20.0) 10/25/17 05:50 Plt Count 67 Th/cmm (150-400) L 10/25/17 05:50 MPV 8.3 fl 10/25/17 05:50 Neutrophils % 53.4 % (40.0-80.0) 10/25/17 05:50 Band Neutrophils % 1 % (0-10) 10/20/17 04:45 Lymphocytes % 24.5 % (20.0-50.0) 10/25/17 05:50 Monocytes % 8.0 % (2.0-10.0) 10/25/17 05:50 Eosinophils % 13.0 % (0.0-5.0) H 10/25/17 05:50 Basophils % 1.1 % (0.0-2.0) 10/25/17 05:50 Neutrophils (Manual) 60 % (40-80) 10/20/17 04:45 Lymphocytes 28 % (20-50) 10/20/17 04:45 Monocytes 2 % (2-10) 10/20/17 04:45 Eosinophils 9 % (0-5) H 10/20/17 04:45 Basophils 0 % (0-3) 10/20/17 04:45 Platelet Estimate DECREASED PLATELETS (NORMAL) 10/20/17 04:45 ESR 66 mm/hr (0-20) H 10/20/17 04:45 PT 12.5 SECONDS (9.5-11.5) H 10/24/17 07:50 INR 1.19 (0.5-1.4) 10/24/17 07:50 PTT (Actin FS) 25.7 SECONDS (26.0-38.0) L 10/24/17 07:50 Sodium 135 mEq/L (136-145) L 10/25/17 05:50 Potassium 3.9 mEq/L (3.5-5.1) 10/25/17 05:50 Chloride 104 mEq/L (98-107) 10/25/17 05:50 Carbon Dioxide 26.0 mEq/L (21.0-31.0) 10/25/17 05:50 Anion Gap 8.9 (7.0-16.0) 10/25/17 05:50 BUN 25 mg/dL (7-25) 10/25/17 05:50 Creatinine 0.8 mg/dL (0.7-1.3) 10/25/17 05:50 Est GFR ( Amer) > 60.0 ml/min (>90) 10/25/17 05:50 Est GFR (Non-Af Amer) > 60.0 ml/min 10/25/17 05:50 BUN/Creatinine Ratio 31.3 10/25/17 05:50 Glucose 88 mg/dL (70-105) 10/25/17 05:50 POC Glucose 103 MG/DL (70 - 105) 10/24/17 08:19 Hemoglobin A1c % 5.9 % (4.0-6.0) 10/19/17 12:30 Calcium 8.7 mg/dL (8.6-10.3) 10/25/17 05:50 Total Bilirubin 1.2 mg/dL (0.3-1.0) H 10/19/17 12:30 AST 27 U/L (13-39) 10/19/17 12:30 ALT 13 U/L (7-52) 10/19/17 12:30 Alkaline Phosphatase 96 U/L (34-104) 10/19/17 12:30 C-Reactive Protein 0.2 mg/dL (0.0-0.9) 10/20/17 04:45 Total Protein 7.9 gm/dL (6.0-8.3) 10/19/17 12:30 Albumin 4.0 gm/dL (4.2-5.5) L 10/19/17 12:30 Globulin 3.9 gm/dL 10/19/17 12:30 Albumin/Globulin Ratio 1.0 (1.0-1.8) 10/19/17 12:30 Vancomycin Trough 13.3 ug/mL (5-10) H 10/21/17 09:35 - Physical Exam Vitals and I&O: Vital Signs Temp 97.6 F 10/26/17 08:00 Pulse 80 10/26/17 08:32 Resp 18 10/26/17 08:00 BP 127/68 10/26/17 08:32 Pulse Ox 98 10/26/17 08:00 Intake & Output 10/25/17 10/26/17 10/26/17 18:59 06:59 18:59 Intake Total 1200 Output Total 1600 Balance -400 Weight (lbs) 85.185 kg Intake: Intake, IV Amount 100 cefTRIAXone 2 gm In 100 Sodium Chloride 0.9% 100 ml @ 100 mls/hr IV Q24H [facility] Rx#:[id number] Oral 1100 Output: Urine 1600 Other: # Bowel Movements 0 Stool Characteristics Soft Soft Soft Formed Formed Formed Weight Source Bedscale Active Medications: Current Medications Acetaminophen (Tylenol) 650 mg PO Q4H PRN PRN Reason: mild pain or fever >101 Stop: 12/18/17 20:59 Acetaminophen (Tylenol) 650 mg PO Q4HR PRN PRN Reason: MILD PAIN OR TEMP >101 Stop: 12/19/17 07:44 Acetaminophen (Tylenol Extra Strength) 1,000 mg PO Q4HR PRN PRN Reason: MODERATE PAIN Stop: 12/19/17 07:44 Last Admin: 10/26/17 00:21 Dose: 1,000 mg Acetaminophen/Hydrocodone Bitart ([place] 5mg/325mg) 1 tab PO Q8H PRN PRN Reason: Severe Pain Stop: 12/19/17 07:44 Last Admin: 10/26/17 08:29 Dose: 1 tab Chlorthalidone (Hygroton) 25 mg PO TID [facility] Stop: 12/19/17 13:59 Last Admin: 10/26/17 08:31 Dose: Not Given Docusate Sodium (Colace) 100 mg PO DAILY ORLY Stop: 12/19/17 08:59 Last Admin: 10/26/17 08:32 Dose: 100 mg Folic Acid (Folate) 1 mg PO DAILY ORLY Stop: 12/19/17 08:59 Last Admin: 10/26/17 08:32 Dose: 1 mg Ceftriaxone Sodium 2 gm/ (Sodium Chloride) 100 mls @ 100 mls/hr IV Q24H [facility] Stop: 12/22/17 15:59 Last Infusion: 10/25/17 18:01 Dose: Infused Lactobacillus Rhamnosus (Culturelle 15b) 1 each PO DAILY ORLY Stop: 12/23/17 13:59 Last Admin: 10/26/17 08:32 Dose: 1 each Metoprolol Tartrate (Lopressor) 25 mg PO BID ORLY Stop: 12/19/17 08:59 Last Admin: 10/26/17 08:31 Dose: Not Given Miscellaneous (Probiotic Screen) 1 ea PRN PRN PRN Reason: PROTOCOL Stop: 12/23/17 11:29 Multivitamins/Vitamin C (Theragran) 1 tab PO DAILY ORLY Stop: 12/20/17 08:59 Last Admin: 10/26/17 08:32 Dose: 1 tab Neomycin/Polymyxin/Bacitracin (Triple Antibiotic Ointment) 1 appl TP DAILY ORLY Stop: 12/20/17 08:59 Last Admin: 10/26/17 08:34 Dose: 1 appl Nitroglycerin (Nitrostat) 0.4 mg SL Q5MIN PRN PRN Reason: Chest Pain Stop: 12/19/17 07:44 Pantoprazole Sodium (Protonix) 40 mg PO QDAC ORLY Stop: 12/19/17 08:59 Last Admin: 10/26/17 08:28 Dose: 40 mg Thiamine HCl (Vitamin B1) 100 mg PO DAILY ORLY Stop: 12/19/17 08:59 Last Admin: 10/26/17 08:32 Dose: 100 mg Valsartan (Diovan) 80 mg PO BID ORLY Stop: 12/19/17 08:59 Last Admin: 10/26/17 08:32 Dose: Not Given General: no acute distress, well developed, well nourished HEENT: atraumatic, normocephalic, PERRLA Neck: supple, no thyromegaly Cardiovascular: S1S2, regular Lungs: clear to auscultation bilaterally, clear to percussion Abdomen: soft, no tender, no distended Extremities: other (right foot dressing), no cyanosis, no clubbing, no edema Neurological: awake, alert, oriented - Procedures Procedures: Procedures Procedure Code Date AMPUTATION OF TOE 28487 10/19/17 DETACHMENT AT RIGHT 2ND TOE, COMPLETE, OPEN APPROACH [id number] 10/19/17 Infectious Disease Assmt/Plan - Problem List Patient Problems: All Active Problems RIGHT #2 TOE PAIN AND SWELLING (Acute) - Assessment Assessment: 1. right foot 2nd toe wound,. osteomyelitis. 2, PAD. 3.DM2. 4. s/p amputaion. - Plan Plan: on discharge change antibiotics to levaquin po for 5 days from now. Wound care. Nutritional Asmnt/Malnutr-PDOC - Dietary Evaluation Malnutrition Findings (Please click <Entered> for more info): Nutritional Asmnt/Malnutrition Start: 10/24/17 16: 04 Text: Status: Complete Freq: Document 10/24/17 16:05 FANI (Rec: 10/24/17 16:17 [facility]) Nutritional Asmnt/Malnutrition Patient General Information Nutritional Screening Moderate Risk Diagnosis right foot cellulities r/o osteomyelitis Pertinent Medical Hx/Surgical Hx DM, HTN, 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 Pt reported good appetite, no question or concern about current diet. Pt had disarticulation of right 2nd toe today. Current Diet Order/ Nutrition Support low sodium Pertinent Medications colace, folate, culturelle, theragran, protonix, vitamin B1 Pertinent Labs 10/24 nutrition labs WNL Nutritional Hx/Data Height 1.78 m Height (Calculated Centimeters) 177.8 Current Weight (lbs) 82.554 kg Weight (Calculated Kilograms) 82.6 Weight (Calculated Grams) 73346.8 [place] Body Weight 166 Body Mass Index (BMI) 26.1 Weight Status Overweight GI Symptoms GI Symptoms None Last BM 10/21 Skin Integrity/Comment: surgery wound Current %PO Good (75-100%) Estimated Nutritional Goals Calories/Kcals/Kg 25-30 Kcals Calculated 7067-7336 Protein g/k-1.2 Protein Calculated 75-90 Fluid: ml 1875-2250ml (1ml/kcal) Nutritional Problem 1. Problem Problem increased protein needs Etiology increased metabolic demand for healing Signs/Symptoms: s/p surgery Malnutrition Alert Protein-Calorie Malnutrition N/A Is there a minimum of two criteria No selected? Query Text:Check all the applicable criteria. A minimum of two criteria are recommended for diagnosis of either severe or non-severe malnutrition. Intervention/Recommendation Comments 1. Continue with low sodium diet as ordered. 2. Monitor PO intake, wt, labs and skin integrity 3. F/U as moderate risk in 3-5 days, 10/27-10/29 Expected Outcomes/Goals Expected Outcomes/Goals 1. PO intake to meet at least 75% of nutritional needs. 2. Wt stability, skin to heal, labs to approach WNL.
--- NOTE | 2017-10-26 14:40 | General Progress Note ---
Subjective - Review of Systems Service Date: 10/26/17 Events since last encounter: for DC to rehab Objective - Results Result Diagrams: 10/25/17 05:50 10/25/17 05:50 Recent Labs: Laboratory Last Values WBC 3.0 Th/cmm (4.8-10.8) L 10/25/17 05:50 RBC 3.02 Mil/cmm (3.80-5.80) L 10/25/17 05:50 Hgb 9.8 gm/dL (12-16) L 10/25/17 05:50 Hct 28.7 % (41.0-60) L 10/25/17 05:50 MCV 94.9 fl (80-99) 10/25/17 05:50 MCH 32.4 pg (27.0-31.0) H 10/25/17 05:50 MCHC Differential 34.2 pg (28.0-36.0) 10/25/17 05:50 RDW 13.3 % (11.5-20.0) 10/25/17 05:50 Plt Count 67 Th/cmm (150-400) L 10/25/17 05:50 MPV 8.3 fl 10/25/17 05:50 Neutrophils % 53.4 % (40.0-80.0) 10/25/17 05:50 Band Neutrophils % 1 % (0-10) 10/20/17 04:45 Lymphocytes % 24.5 % (20.0-50.0) 10/25/17 05:50 Monocytes % 8.0 % (2.0-10.0) 10/25/17 05:50 Eosinophils % 13.0 % (0.0-5.0) H 10/25/17 05:50 Basophils % 1.1 % (0.0-2.0) 10/25/17 05:50 Neutrophils (Manual) 60 % (40-80) 10/20/17 04:45 Lymphocytes 28 % (20-50) 10/20/17 04:45 Monocytes 2 % (2-10) 10/20/17 04:45 Eosinophils 9 % (0-5) H 10/20/17 04:45 Basophils 0 % (0-3) 10/20/17 04:45 Platelet Estimate DECREASED PLATELETS (NORMAL) 10/20/17 04:45 ESR 66 mm/hr (0-20) H 10/20/17 04:45 PT 12.5 SECONDS (9.5-11.5) H 10/24/17 07:50 INR 1.19 (0.5-1.4) 10/24/17 07:50 PTT (Actin FS) 25.7 SECONDS (26.0-38.0) L 10/24/17 07:50 Sodium 135 mEq/L (136-145) L 10/25/17 05:50 Potassium 3.9 mEq/L (3.5-5.1) 10/25/17 05:50 Chloride 104 mEq/L (98-107) 10/25/17 05:50 Carbon Dioxide 26.0 mEq/L (21.0-31.0) 10/25/17 05:50 Anion Gap 8.9 (7.0-16.0) 10/25/17 05:50 BUN 25 mg/dL (7-25) 10/25/17 05:50 Creatinine 0.8 mg/dL (0.7-1.3) 10/25/17 05:50 Est GFR ( Amer) > 60.0 ml/min (>90) 10/25/17 05:50 Est GFR (Non-Af Amer) > 60.0 ml/min 10/25/17 05:50 BUN/Creatinine Ratio 31.3 10/25/17 05:50 Glucose 88 mg/dL (70-105) 10/25/17 05:50 POC Glucose 103 MG/DL (70 - 105) 10/24/17 08:19 Hemoglobin A1c % 5.9 % (4.0-6.0) 10/19/17 12:30 Calcium 8.7 mg/dL (8.6-10.3) 10/25/17 05:50 Total Bilirubin 1.2 mg/dL (0.3-1.0) H 10/19/17 12:30 AST 27 U/L (13-39) 10/19/17 12:30 ALT 13 U/L (7-52) 10/19/17 12:30 Alkaline Phosphatase 96 U/L (34-104) 10/19/17 12:30 C-Reactive Protein 0.2 mg/dL (0.0-0.9) 10/20/17 04:45 Total Protein 7.9 gm/dL (6.0-8.3) 10/19/17 12:30 Albumin 4.0 gm/dL (4.2-5.5) L 10/19/17 12:30 Globulin 3.9 gm/dL 10/19/17 12:30 Albumin/Globulin Ratio 1.0 (1.0-1.8) 10/19/17 12:30 Vancomycin Trough 13.3 ug/mL (5-10) H 10/21/17 09:35 - Physical Exam Vitals and I&O: Vital Signs Temp 97.6 F 10/26/17 08:00 Pulse 96 10/26/17 13:34 Resp 18 10/26/17 08:00 BP 116/60 10/26/17 13:34 Pulse Ox 98 10/26/17 08:00 Intake & Output 10/25/17 10/26/17 10/26/17 18:59 06:59 18:59 Intake Total 1200 Output Total 1600 Balance -400 Weight (lbs) 85.185 kg Intake: Intake, IV Amount 100 cefTRIAXone 2 gm In 100 Sodium Chloride 0.9% 100 ml @ 100 mls/hr IV Q24H [facility] Rx#:[id number] Oral 1100 Output: Urine 1600 Other: # Bowel Movements 0 Stool Characteristics Soft Soft Soft Formed Formed Formed Weight Source Bedscale Active Medications: Current Medications Acetaminophen (Tylenol) 650 mg PO Q4H PRN PRN Reason: mild pain or fever >101 Stop: 12/18/17 20:59 Acetaminophen (Tylenol) 650 mg PO Q4HR PRN PRN Reason: MILD PAIN OR TEMP >101 Stop: 12/19/17 07:44 Acetaminophen (Tylenol Extra Strength) 1,000 mg PO Q4HR PRN PRN Reason: MODERATE PAIN Stop: 12/19/17 07:44 Last Admin: 10/26/17 00:21 Dose: 1,000 mg Acetaminophen/Hydrocodone Bitart ([place] 5mg/325mg) 1 tab PO Q8H PRN PRN Reason: Severe Pain Stop: 12/19/17 07:44 Last Admin: 10/26/17 08:29 Dose: 1 tab Chlorthalidone (Hygroton) 25 mg PO TID [facility] Stop: 12/19/17 13:59 Last Admin: 10/26/17 13:34 Dose: Not Given Docusate Sodium (Colace) 100 mg PO DAILY ORLY Stop: 12/19/17 08:59 Last Admin: 10/26/17 08:32 Dose: 100 mg Folic Acid (Folate) 1 mg PO DAILY ORLY Stop: 12/19/17 08:59 Last Admin: 10/26/17 08:32 Dose: 1 mg Ceftriaxone Sodium 2 gm/ (Sodium Chloride) 100 mls @ 100 mls/hr IV Q24H [facility] Stop: 12/22/17 15:59 Last Infusion: 10/25/17 18:01 Dose: Infused Lactobacillus Rhamnosus (Culturelle 15b) 1 each PO DAILY ORLY Stop: 12/23/17 13:59 Last Admin: 10/26/17 08:32 Dose: 1 each Metoprolol Tartrate (Lopressor) 25 mg PO BID [facility] Stop: 12/19/17 08:59 Last Admin: 10/26/17 08:31 Dose: Not Given Miscellaneous (Probiotic Screen) 1 ea PRN PRN PRN Reason: PROTOCOL Stop: 12/23/17 11:29 Multivitamins/Vitamin C (Theragran) 1 tab PO DAILY ORLY Stop: 12/20/17 08:59 Last Admin: 10/26/17 08:32 Dose: 1 tab Neomycin/Polymyxin/Bacitracin (Triple Antibiotic Ointment) 1 appl TP DAILY ORLY Stop: 12/20/17 08:59 Last Admin: 10/26/17 08:34 Dose: 1 appl Nitroglycerin (Nitrostat) 0.4 mg SL Q5MIN PRN PRN Reason: Chest Pain Stop: 12/19/17 07:44 Pantoprazole Sodium (Protonix) 40 mg PO QDAC OR[facility] Stop: 12/19/17 08:59 Last Admin: 10/26/17 08:28 Dose: 40 mg Thiamine HCl (Vitamin B1) 100 mg PO DAILY ORLY Stop: 12/19/17 08:59 Last Admin: 10/26/17 08:32 Dose: 100 mg Valsartan (Diovan) 80 mg PO BID ORLY Stop: 12/19/17 08:59 Last Admin: 10/26/17 08:32 Dose: Not Given - Procedures Procedures: Procedures Procedure Code Date AMPUTATION OF TOE 34660 10/19/17 DETACHMENT AT RIGHT 2ND TOE, COMPLETE, OPEN APPROACH [id number] 10/19/17 Assessment/Plan - Problem List Patient Problems: All Active Problems RIGHT #2 TOE PAIN AND SWELLING (Acute) Nutritional Asmnt/Malnutr-PDOC - Dietary Evaluation Malnutrition Findings (Please click <Entered> for more info): Nutritional Asmnt/Malnutrition Start: 10/24/17 16: 04 Text: Status: Complete Freq: Document 10/24/17 16:05 LCHENG (Rec: 10/24/17 16:17 [email or web address]) Nutritional Asmnt/Malnutrition Patient General Information Nutritional Screening Moderate Risk Diagnosis right foot cellulities r/o osteomyelitis Pertinent Medical Hx/Surgical Hx DM, HTN, 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 Pt reported good appetite, no question or concern about current diet. Pt had disarticulation of right 2nd toe today. Current Diet Order/ Nutrition Support low sodium Pertinent Medications colace, folate, culturelle, theragran, protonix, vitamin B1 Pertinent Labs 10/24 nutrition labs WNL Nutritional Hx/Data Height 1.78 m Height (Calculated Centimeters) 177.8 Current Weight (lbs) 82.554 kg Weight (Calculated Kilograms) 82.6 Weight (Calculated Grams) 84450.8 [place] Body Weight 166 Body Mass Index (BMI) 26.1 Weight Status Overweight GI Symptoms GI Symptoms None Last BM 10/21 Skin Integrity/Comment: surgery wound Current %PO Good (75-100%) Estimated Nutritional Goals Calories/Kcals/Kg 25-30 Kcals Calculated 6876-9056 Protein g/k-1.2 Protein Calculated 75-90 Fluid: ml 1875-2250ml (1ml/kcal) Nutritional Problem 1. Problem Problem increased protein needs Etiology increased metabolic demand for healing Signs/Symptoms: s/p surgery Malnutrition Alert Protein-Calorie Malnutrition N/A Is there a minimum of two criteria No selected? Query Text:Check all the applicable criteria. A minimum of two criteria are recommended for diagnosis of either severe or non-severe malnutrition. Intervention/Recommendation Comments 1. Continue with low sodium diet as ordered. 2. Monitor PO intake, wt, labs and skin integrity 3. F/U as moderate risk in 3-5 days, 10/27-10/29 Expected Outcomes/Goals Expected Outcomes/Goals 1. PO intake to meet at least 75% of nutritional needs. 2. Wt stability, skin to heal, labs to approach WNL.
[2017-10-26] MEDS: cefTRIAXone 2 GM in Sodium Chloride 0.9% 100 ML IV SCH (15:13)
== END 2017-10-26 20:08 | DRG 617 ==
LOC: ER 11:35 → MSI 14:30 → TELE 10-23 18:13
PROVIDERS: ADMIT Internal Medicine; ATTEND Internal Medicine
PROC: 0Y6R0Z0 Detachment at Right 2nd Toe, Complete, Open Approach (ICD-10-PCS; principal; 2017-10-24)
DX: E11.69 Type 2 diabetes mellitus with other specified complication (principal); E87.1 Hypo-osmolality and hyponatremia; M86.8X7 Other osteomyelitis, ankle and foot; L03.031 Cellulitis of right toe; E11.51 Type 2 diabetes mellitus with diabetic peripheral angiopathy without gangrene; I10 Essential (primary) hypertension; E78.5 Hyperlipidemia, unspecified; K21.9 Gastro-esophageal reflux disease without esophagitis; E11.65 Type 2 diabetes mellitus with hyperglycemia; K72.90 Hepatic failure, unspecified without coma; K74.60 Unspecified cirrhosis of liver; Z89.421 Acquired absence of other right toe(s); Z91.013 Allergy to seafood; Z88.6 Allergy status to analgesic agent; Z87.11 Personal history of peptic ulcer disease
CPT/HCPCS: 36415-UA; 71045-TC; 73718-TC-RT; 80048-TC; 80053-TC; 80202-TC; 82948-90; 83036-90; 85007-TC; 85025-TC; 85027-TC; 85610-TC; 85652-TC; 86141-TC; 87070-90; 87075-90; 87205-90; 93005; 93926-RT-TC; 93971-TC-RT; J0696; J2704; J3010; J3370; J7030; J7042; V2790; X5716; Z7610